=== PATIENT | female | born 1970 | race Caucasian/White ===

== ENCOUNTER 2021-11-25 15:50 | Emergency (ER) | payer MEDICARE, MEDICAID, SELFPAY ==
--- NOTE | ~2021-11-25 | CT_ITS ---
EXAMINATION: CT ANGIOGRAM OF THE CHEST WITH AND WITHOUT CONTRAST (CT PULMONARY ANGIOGRAM FOR PE) CLINICAL INFORMATION: Reason for Exam hx PE, hypoxic COMPARISON: None TECHNIQUE: Prior to contrast administration, noncontrast localization images were obtained. Subsequently, multidetector volumetric imaging was performed from the thoracic inlet to below the diaphragms following the administration of 65 mL Omnipaque 350 intravenous contrast. No contrast reaction reported Sagittal, coronal, and MIP oblique sagittal reformatted images were obtained on the CT workstation, uploaded to PACS, and reviewed. This CT examination was performed using dose optimization techniques as appropriate, variously including the following: *Automated exposure control *Adjustment of mA and/or kV according to patient size (this includes techniques or standardized protocols for targeted exams where dose is matched to indication/reason for exam; i.e. extremities or head) *Use of iterative reconstruction technique Total exam dose-length product 312 mGy-cm FINDINGS: QUALITY OF STUDY/CONTRAST BOLUS: Suboptimal contrast bolus is slightly less than optimal but more limiting marked motion artifact which completely obscures any detail in the bilateral lower lobes. PULMONARY ARTERIES: No central or large upper lobe segmental pulmonary emboli. The lower lobes are extremely poorly evaluated. THORACIC AORTA: No aneurysm or dissection. LUNG: No focal consolidation, worrisome nodules or masses. There is bibasilar atelectasis seen, right greater than left. PLEURA: No pleural effusion or pneumothorax. MEDIASTINUM: Normal heart size. No pericardial effusion. No hilar or mediastinal lymphadenopathy. No evidence of septal bowing or right heart strain. CHEST WALL/AXILLA: No axillary or internal mammary lymphadenopathy. OSSEOUS STRUCTURES: No acute or suspicious osseous abnormality. UPPER ABDOMEN: Gastrostomy tube noted in good position within the stomach. No reflux of contrast into the hepatic veins to suggest elevated right heart pressures. CT/CT angio chest PE protocol IMPRESSION: Limited study with no evidence of central or upper lobe pulmonary emboli. Lower lobes are poorly evaluated secondary to marked motion artifact along with poor quality of the bolus. VTE: Negative, but limited
--- NOTE | ~2021-11-25 | XR_ITS ---
EXAMINATION: XR CHEST CLINICAL INFORMATION: Hypoxic COMPARISON: Chest x-ray 01/12/2020 TECHNIQUE: Frontal portable view of the chest was obtained. 1630 hours FINDINGS: No significant abnormality is noted involving the heart, lungs, mediastinum, bony thorax or soft tissues. XR/XR chest 1V IMPRESSION: Unremarkable examination.
[2021-11-25 15:56] VITALS: BP 128/54; PULSE 82; O2SAT 94
[2021-11-25 15:59] VITALS: BP 121/97; PULSE 83; RESP 34; TEMP 36.1; O2SAT 97; BMI 21.6
--- NOTE | 2021-11-25 16:13 | ECG_ITS ---
Test Reason : SOB Blood Pressure : / mmHG Vent. Rate : 077 BPM Atrial Rate : 077 BPM P-R Int : 132 ms QRS Dur : 058 ms QT Int : 354 ms P-R-T Axes : 054 -23 050 degrees QTc Int : 400 ms Normal sinus rhythm Septal infarct , age undetermined - could be related to lead placement Abnormal ECG When compared with ECG of 06-JUN-2019 07:05, Septal infarct is now Present Nonspecific T wave abnormality no longer evident in Inferior leads Referred By: Angelina Luna Electronically Signed By:TAO HYATT
[2021-11-25 16:17] LABS: Glucose, Whole Blood 82 mg/dL (60-115)
[2021-11-25] MEDS: 0.9 % Sodium Chloride 1,000 ML 999 ML IVCONT (16:18)
[2021-11-25 16:27] LABS: MANUAL DIFF FLAG NO
[2021-11-25 16:29] LABS: VBG Base Excess 9.6 mmol/L; VBG HCO3 39 mmol/L (22-26); VBG pCO2 79 mmHg; VBG pO2 37 mmHg
[2021-11-25 16:29] LABS: Basophils Percent Auto 0.2 % (0-2); Eosinophils Percent Auto 0.1 % (0-4); Hematocrit 44.6 % (37.0-47.0); Hemoglobin 14.4 g/dl (12.0-16.0); Imm Gran Abs Auto 0.03 X10*3/uL (0.00-0.03); Imm Gran Pct Auto 0.3 % (0.0-0.4); Lymphocytes Percent Auto 20.5 % (20-40); Mean Corpuscular HGB Conc 32.3 g/dl (31.0-35.0); Mean Corpuscular Hemoglobin 34.7 pg (27.0-33.0); Mean Corpuscular Volume 107.5 fL (80.0-98.0); Mean Platelet Volume 10.7 fL (9.4-12.3); Monocytes Absolute Auto 0.8 X10*3/uL (0.1-1.2); Monocytes Percent Auto 7.9 % (2-11); Neutrophils Absolute Auto 6.8 x10*3/uL (2.0-8.3); Platelet Count 219 X10*3/uL (160-400); Red Blood Count 4.15 X10*6/uL (4.20-5.50); Red Cell Distribution Width 12.7 % (11.0-16.0); Venous Blood Gas Refer to POC result; White Blood Count 9.6 X10*3/uL (4.8-10.8)
[2021-11-25 16:33] LABS: INTERNATIONAL NORM RATIO 0.9 (0.9-1.1); Prothrombin Time 10.5 SEC (9.9-13.0)
--- NOTE | 2021-11-25 16:34 | ED.SOB ---
HPI - SOB/Dyspnea General Chief Complaint: Dyspnea Stated Complaint: SOB 78% RA,RECENT H/O PNA, Time Seen by Provider: 11/25/21 16:12 Source: EMS Mode of arrival: EMS Limitations: other (At baseline nonverbal) History of Present Illness HPI Narrative: Patient comes [facility] the emergency room from a [facility]. Patient at baseline is nonverbal. According to the staff, patient had explosive diarrhea this morning, when they went to change her linens, we noted that the patient's oxygen saturation was in the high 60s. EMS was called, oxygen saturation was in the high 70s. Patient was put on non-rebreather at 15 L, oxygen saturation improved to 96%. According to the correction staff, patient is prone to aspiration pneumonia. Related Data Allergies Allergy/AdvReac Type Severity Reaction Status Date / Time ceftriaxone [From ROCEPHIN] Allergy Unknown UNKNOWN Unverified 05/28/20 16:37 mirtazapine [MIRTAZAPINE] Allergy Unknown HIVES Unverified 05/28/20 16:37 Review of Systems Review of Systems: Yes Unobtainable due to mental condition [facility] Past Medical History Medical History Bipolar 2 disorder Pulmonary emboli Tardive dyskinesia Social History Social History Advance Directives: No Advance Directives Information Provided: No Physical Exam Vital Signs: Vital Signs: Last Vital Signs Temp 97 F 11/25/21 15:59 Pulse 85 11/25/21 20:34 Resp 19 11/25/21 20:34 BP 123/43 L 11/25/21 20:34 Pulse Ox 100 11/25/21 20:34 Oxygen Flow Rate 15 11/25/21 15:59 BMI result Body Mass Index 21.6 Const: Other: Appearance: Alert. Uncomfortable, moaning Eyes: Pupils equal, round and reactive to light. ENT: Pharynx normal. Neck: Normal inspection. Neck supple. No lymph nodes noted. No crepitus CVS: Normal heart rate and rhythm. Pulses normal. Normal S1 and S2 Respiratory: Symptom comfortable, crackly in all lung [place], decreased breath sounds in the right lung Abdomen: Soft and nontender. No rigidity. No distention. Skin: Skin cool to touch, mildly diaphoretic only in the face Extremities: No lower extremity edema. Neuro: Moves all extremities spontaneously, but has significant contractures in both upper extremities, both feet very cold touch, no discoloration Psych: At baseline, patient is nonverbal Course Course Course Narrative: On arrival, sepsis is not suspected. Given her history patient is being covered with Levaquin, x-rays and labs pending CT scan was done, negative for PE, does not look like patient has ammonia. Also, patient has been off of oxygen for 2 hours now, oxygen saturation has been 98% on room air. It is likely that patient had a mucus plug, other vitals stable On discharge, blood pressure 123/43, heart rate 85, oxygen saturation 99% on room air MDM - SOB/Dyspnea Lab Data Result diagrams: 11/25/21 16:15 11/25/21 16:15 Labs: Lab Results 11/25/21 11/25/21 11/25/21 Range/Units 16:03 16:15 16:15 WBC 9.6 (4.8-10.8) X10*3/uL RBC 4.15 L (4.20-5.50) X10*6/uL Hgb 14.4 (12.0-16.0) g/dl Hct 44.6 (37.0-47.0) % MCV 107.5 H (80.0-98.0) fL MCH 34.7 H (27.0-33.0) pg MCHC 32.3 (31.0-35.0) g/dl RDW 12.7 (11.0-16.0) % Plt Count 219 (160-400) X10*3/uL MPV 10.7 (9.4-12.3) fL Immature Gran % (Auto) 0.3 (0.0-0.4) % Neut % (Auto) 71.0 (45-73) % Lymph % (Auto) 20.5 (20-40) % [place] % (Auto) 7.9 (2-11) % Eos % (Auto) 0.1 (0-4) % Baso % (Auto) 0.2 (0-2) % Lymph # (Auto) 2.0 (1.2-4.9) X10*3/uL [place] # (Auto) 0.8 (0.1-1.2) X10*3/uL Eos # (Auto) 0.0 (0.0-0.4) X10*3/uL Baso # (Auto) 0.0 (0.0-0.2) X10*3/uL Abs Immat Gran (auto) 0.03 (0.00-0.03) X10*3/uL Absolute Neuts (auto) 6.8 (2.0-8.3) x10*3/uL Absolute Nucleated RBC 0.000 (0.0-0.012) X10*3/uL Nucleated RBC % (auto) 0.0 (0.0-0.2) /100WBC PT (9.9-13.0) SEC INR (0.9-1.1) D-Dimer High Sensitivty NG/ML VBG pH (7.32-7.43) VBG pCO2 mmHg VBG pO2 mmHg VBG HCO3 (22-26) mmol/L VBG O2 Saturation % VBG Base Excess mmol/L Sodium 141 (135-145) mmol/L Potassium 4.2 (3.3-5.1) mmol/L Chloride 99 (96-108) mmol/L Carbon Dioxide 31 H (22-29) mmol/L Anion Gap 15 (12-20) BUN 18 H (9-16) mg/dL Creatinine 0.57 (0.5-1.4) mg/dL Estim Creat Clear Calc 91.3 Estimated GFR > 60 POC Glucose 82 (60-115) mg/dL Random Glucose 94 (60-115) mg/dL Lactic Acid (0.5-2.0) mmol/L Calcium 9.1 (8.4-10.2) mg/dL Total Bilirubin 0.5 (0.0-1.0) mg/dL Direct Bilirubin 0.3 (0.0-0.5) mg/dL AST 20 (5-31) U/L ALT 15 (0-31) U/L Alkaline Phosphatase 113 (39-117) U/L Troponin I High Sens (<3.5-17.0) ng/L B-Natriuretic Peptide (<100) pg/mL Total Protein 5.9 L (6.5-8.0) g/dL Albumin 3.2 L (3.5-5.0) g/dL TSH (0.32-4.0) uIU/mL Urine Color Urine Appearance Urine pH (5.0-8.0) Ur Specific Half Way (1.005-1.025) Urine Protein (NEG-TRACE) MG/DL Urine Glucose (UA) (NEG) MG/DL Urine Ketones (NEG) MG/DL Urine Blood (NEG) Urine Nitrite (NEG) Ur Leukocyte Esterase (NEG) COVID-19 (PRATIMA) (Negative) COVID-19 Clin Com 11/25/21 11/25/21 11/25/21 Range/Units 16:15 16:15 16:15 WBC (4.8-10.8) X10*3/uL RBC (4.20-5.50) X10*6/uL Hgb (12.0-16.0) g/dl Hct (37.0-47.0) % MCV (80.0-98.0) fL MCH (27.0-33.0) pg MCHC (31.0-35.0) g/dl RDW (11.0-16.0) % Plt Count (160-400) X10*3/uL MPV (9.4-12.3) fL Immature Gran % (Auto) (0.0-0.4) % Neut % (Auto) (45-73) % Lymph % (Auto) (20-40) % [place] % (Auto) (2-11) % Eos % (Auto) (0-4) % Baso % (Auto) (0-2) % Lymph # (Auto) (1.2-4.9) X10*3/uL [place] # (Auto) (0.1-1.2) X10*3/uL Eos # (Auto) (0.0-0.4) X10*3/uL Baso # (Auto) (0.0-0.2) X10*3/uL Abs Immat Gran (auto) (0.00-0.03) X10*3/uL Absolute Neuts (auto) (2.0-8.3) x10*3/uL Absolute Nucleated RBC (0.0-0.012) X10*3/uL Nucleated RBC % (auto) (0.0-0.2) /100WBC PT 10.5 (9.9-13.0) SEC INR 0.9 (0.9-1.1) D-Dimer High Sensitivty < 150 NG/ML VBG pH (7.32-7.43) VBG pCO2 mmHg VBG pO2 mmHg VBG HCO3 (22-26) mmol/L VBG O2 Saturation % VBG Base Excess mmol/L Sodium (135-145) mmol/L Potassium (3.3-5.1) mmol/L Chloride (96-108) mmol/L Carbon Dioxide (22-29) mmol/L Anion Gap (12-20) BUN (9-16) mg/dL Creatinine (0.5-1.4) mg/dL Estim Creat Clear Calc Estimated GFR POC Glucose (60-115) mg/dL Random Glucose (60-115) mg/dL Lactic Acid 1.2 (0.5-2.0) mmol/L Calcium (8.4-10.2) mg/dL Total Bilirubin (0.0-1.0) mg/dL Direct Bilirubin (0.0-0.5) mg/dL AST (5-31) U/L ALT (0-31) U/L Alkaline Phosphatase (39-117) U/L Troponin I High Sens < 3.5 (<3.5-17.0) ng/L B-Natriuretic Peptide 42 (<100) pg/mL Total Protein (6.5-8.0) g/dL Albumin (3.5-5.0) g/dL TSH (0.32-4.0) uIU/mL Urine Color Urine Appearance Urine pH (5.0-8.0) Ur Specific Half Way (1.005-1.025) Urine Protein (NEG-TRACE) MG/DL Urine Glucose (UA) (NEG) MG/DL Urine Ketones (NEG) MG/DL Urine Blood (NEG) Urine Nitrite (NEG) Ur Leukocyte Esterase (NEG) COVID-19 (PRATIMA) (Negative) COVID-19 Clin Com 11/25/21 11/25/21 11/25/21 Range/Units 16:15 16:15 16:24 WBC (4.8-10.8) X10*3/uL RBC (4.20-5.50) X10*6/uL Hgb (12.0-16.0) g/dl Hct (37.0-47.0) % MCV (80.0-98.0) fL MCH (27.0-33.0) pg MCHC (31.0-35.0) g/dl RDW (11.0-16.0) % Plt Count (160-400) X10*3/uL MPV (9.4-12.3) fL Immature Gran % (Auto) (0.0-0.4) % Neut % (Auto) (45-73) % Lymph % (Auto) (20-40) % [place] % (Auto) (2-11) % Eos % (Auto) (0-4) % Baso % (Auto) (0-2) % Lymph # (Auto) (1.2-4.9) X10*3/uL [place] # (Auto) (0.1-1.2) X10*3/uL Eos # (Auto) (0.0-0.4) X10*3/uL Baso # (Auto) (0.0-0.2) X10*3/uL Abs Immat Gran (auto) (0.00-0.03) X10*3/uL Absolute Neuts (auto) (2.0-8.3) x10*3/uL Absolute Nucleated RBC (0.0-0.012) X10*3/uL Nucleated RBC % (auto) (0.0-0.2) /100WBC PT (9.9-13.0) SEC INR (0.9-1.1) D-Dimer High Sensitivty NG/ML VBG pH 7.30 L (7.32-7.43) VBG pCO2 79 mmHg VBG pO2 37 mmHg VBG HCO3 39 H (22-26) mmol/L VBG O2 Saturation 53.0 % VBG Base Excess 9.6 mmol/L Sodium (135-145) mmol/L Potassium (3.3-5.1) mmol/L Chloride (96-108) mmol/L Carbon Dioxide (22-29) mmol/L Anion Gap (12-20) BUN (9-16) mg/dL Creatinine (0.5-1.4) mg/dL Estim Creat Clear Calc Estimated GFR POC Glucose (60-115) mg/dL Random Glucose (60-115) mg/dL Lactic Acid (0.5-2.0) mmol/L Calcium (8.4-10.2) mg/dL Total Bilirubin (0.0-1.0) mg/dL Direct Bilirubin (0.0-0.5) mg/dL AST (5-31) U/L ALT (0-31) U/L Alkaline Phosphatase (39-117) U/L Troponin I High Sens (<3.5-17.0) ng/L B-Natriuretic Peptide (<100) pg/mL Total Protein (6.5-8.0) g/dL Albumin (3.5-5.0) g/dL TSH 1.34 (0.32-4.0) uIU/mL Urine Color Urine Appearance Urine pH (5.0-8.0) Ur Specific Half Way (1.005-1.025) Urine Protein (NEG-TRACE) MG/DL Urine Glucose (UA) (NEG) MG/DL Urine Ketones (NEG) MG/DL Urine Blood (NEG) Urine Nitrite (NEG) Ur Leukocyte Esterase (NEG) COVID-19 (PRATIMA) Negative (Negative) COVID-19 Clin Com See Note 11/25/21 Range/Units 16:50 WBC (4.8-10.8) X10*3/uL RBC (4.20-5.50) X10*6/uL Hgb (12.0-16.0) g/dl Hct (37.0-47.0) % MCV (80.0-98.0) fL MCH (27.0-33.0) pg MCHC (31.0-35.0) g/dl RDW (11.0-16.0) % Plt Count (160-400) X10*3/uL MPV (9.4-12.3) fL Immature Gran % (Auto) (0.0-0.4) % Neut % (Auto) (45-73) % Lymph % (Auto) (20-40) % [place] % (Auto) (2-11) % Eos % (Auto) (0-4) % Baso % (Auto) (0-2) % Lymph # (Auto) (1.2-4.9) X10*3/uL [place] # (Auto) (0.1-1.2) X10*3/uL Eos # (Auto) (0.0-0.4) X10*3/uL Baso # (Auto) (0.0-0.2) X10*3/uL Abs Immat Gran (auto) (0.00-0.03) X10*3/uL Absolute Neuts (auto) (2.0-8.3) x10*3/uL Absolute Nucleated RBC (0.0-0.012) X10*3/uL Nucleated RBC % (auto) (0.0-0.2) /100WBC PT (9.9-13.0) SEC INR (0.9-1.1) D-Dimer High Sensitivty NG/ML VBG pH (7.32-7.43) VBG pCO2 mmHg VBG pO2 mmHg VBG HCO3 (22-26) mmol/L VBG O2 Saturation % VBG Base Excess mmol/L Sodium (135-145) mmol/L Potassium (3.3-5.1) mmol/L Chloride (96-108) mmol/L Carbon Dioxide (22-29) mmol/L Anion Gap (12-20) BUN (9-16) mg/dL Creatinine (0.5-1.4) mg/dL Estim Creat Clear Calc Estimated GFR POC Glucose (60-115) mg/dL Random Glucose (60-115) mg/dL Lactic Acid (0.5-2.0) mmol/L Calcium (8.4-10.2) mg/dL Total Bilirubin (0.0-1.0) mg/dL Direct Bilirubin (0.0-0.5) mg/dL AST (5-31) U/L ALT (0-31) U/L Alkaline Phosphatase (39-117) U/L Troponin I High Sens (<3.5-17.0) ng/L B-Natriuretic Peptide (<100) pg/mL Total Protein (6.5-8.0) g/dL Albumin (3.5-5.0) g/dL TSH (0.32-4.0) uIU/mL Urine Color YELLOW Urine Appearance CLEAR Urine pH 6.5 (5.0-8.0) Ur Specific Half Way <= 1.005 (1.005-1.025) Urine Protein NEG (NEG-TRACE) MG/DL Urine Glucose (UA) NEG (NEG) MG/DL Urine Ketones NEG (NEG) MG/DL Urine Blood NEG (NEG) Urine Nitrite NEG (NEG) Ur Leukocyte Esterase NEG (NEG) COVID-19 (PRATIMA) (Negative) COVID-19 Clin Com Imaging Data CT scan - chest: Radiologist's impression: FINDINGS: QUALITY OF STUDY/CONTRAST BOLUS: Suboptimal contrast bolus is slightly less than optimal but more limiting marked motion artifact which completely obscures any detail in the bilateral lower lobes. PULMONARY ARTERIES: No central or large upper lobe segmental pulmonary emboli. The lower lobes are extremely poorly evaluated. THORACIC AORTA: No aneurysm or dissection. LUNG: No focal consolidation, worrisome nodules or masses. There is bibasilar atelectasis seen, right greater than left. PLEURA: No pleural effusion or pneumothorax. MEDIASTINUM: Normal heart size.? No pericardial effusion.? No hilar or mediastinal lymphadenopathy.? No evidence of septal bowing or right heart strain. CHEST WALL/AXILLA: No axillary or internal mammary lymphadenopathy. OSSEOUS STRUCTURES: No acute or suspicious osseous abnormality.? UPPER ABDOMEN: Gastrostomy tube noted in good position within the stomach.? No reflux of contrast into the hepatic veins to suggest elevated right heart pressures. CT/CT angio chest PE protocol IMPRESSION: Limited study with no evidence of central or upper lobe pulmonary emboli. Lower lobes are poorly evaluated secondary to marked motion artifact along with poor quality of the bolus. ? VTE: Negative, but limited Discharge Plan Discharge Clinical Impression: Mucus plugging of bronchi Patient Disposition: Home, Self-Care Instructions: Dyspnea (ED) Additional Instructions: Please follow-up with your primary care physician tomorrow. If you have any worsening or new symptoms, please return to the emergency room or call 911
[2021-11-25 16:38] LABS: Lactic Acid 1.2 mmol/L (0.5-2.0)
[2021-11-25 16:42] LABS: COVID-19 Test Negative (Negative)
[2021-11-25 16:44] LABS: Alanine Aminotransferase 15 U/L (0-31); Albumin Level 3.2 g/dL (3.5-5.0); Alkaline Phosphatase 113 U/L (39-117); Anion Gap 15 (12-20); Aspartate Amino Transferase 20 U/L (5-31); Bilirubin Direct 0.3 mg/dL (0.0-0.5); Bilirubin Total 0.5 mg/dL (0.0-1.0); Blood Urea Nitrogen 18 mg/dL (9-16); Calcium 9.1 mg/dL (8.4-10.2); Carbon Dioxide 31 mmol/L (22-29); Chloride 99 mmol/L (96-108); Creatinine Clr Calc Pharmacy 91.3; Estimated Glomerular Filt Rate > 60; Glucose Random 94 mg/dL (60-115); Potassium 4.2 mmol/L (3.3-5.1); Sodium 141 mmol/L (135-145); Total Protein 5.9 g/dL (6.5-8.0)
[2021-11-25 16:46] LABS: B Type Natriuretic Peptide 42 pg/mL (<100); Troponin-I High Sensitivity < 3.5 ng/L (<3.5-17.0)
[2021-11-25 16:56] LABS: Appearance Urine CLEAR; Color Urine YELLOW; Glucose Urine UA NEG (NEG); Leukocyte Esterase Urine NEG (NEG); Nitrite Urine NEG (NEG); PH 6.5 (5.0-8.0); Specific Gravity - Urine <= 1.005 (1.005-1.025); Urine Blood NEG (NEG); Urine Ketones NEG (NEG); Urine Protein NEG (NEG-TRACE)
[2021-11-25 17:01] LABS: TSH reflex Free T4 1.34 uIU/mL (0.32-4.0)
[2021-11-25] MEDS: levoFLOXacin/D5W 500 MG/100 ML PIGGYBACK 100 MG IV (17:29)
[2021-11-25 17:35] VITALS: BP 110/63; PULSE 73; RESP 20; O2SAT 98
--- NOTE | 2021-11-25 17:36 | PC.NURSE ---
pt alert but non-verbal at baseline, pt taken of the non-rebreather and changed over to the nasal cannuel and sating at 98%, pt is contracted at the arms at baseline, ns on the monitor pt is from a longterm
[2021-11-25 17:50] LABS: D Dimer High Sensitivity < 150 NG/ML
[2021-11-25 18:50] VITALS: PULSE 71; O2SAT 100
[2021-11-25] MEDS: iohexoL 350 MG/ML 100 ML INFUS..BTL IV (20:08)
[2021-11-25 20:34] VITALS: BP 123/43; PULSE 85; RESP 19; O2SAT 100
[2021-11-25 22:41] VITALS: BP 103/62; RESP 16; O2SAT 97
--- NOTE | 2021-11-26 05:19 | PC.NURSE ---
The pt has been discharged since before midnight, however remains in the E.D. awaiting available transport back to senior living. Sicne that time the pt has been resting ixn bed and at times is quiet and at other times seems to be indicating discomfort. Prior to senior living's staff dearture from ER I inquired about facial expressions the pt was making, wondering if they indicated that she was in pain. The senior living staff memebr stated that this was her baseline and did not indicate that she was in painb. Since she has been discharged she has been incontinent of a large amount of urine. linens were changed, skin cleansed, warm blankets provided. We continue to await transport.
== END 2021-11-26 06:16 | disposition home or self-care (01) ==
PROVIDERS: Emergency Provider Emergency Medicine
DX: T17.590A Other foreign object in bronchus causing asphyxiation, initial encounter (principal); X58.XXXA Exposure to other specified factors, initial encounter; R06.02 Shortness of breath; Z87.01 Personal history of pneumonia (recurrent); Z86.711 Personal history of pulmonary embolism; G24.01 Drug induced subacute dyskinesia; Z20.822 Contact with and (suspected) exposure to COVID-19; Y93.9 Activity, unspecified; Y92.049 Unspecified place in boarding-house as the place of occurrence of the external cause; Y99.9 Unspecified external cause status
CPT/HCPCS: 36415; 71045; 71275; 80048; 80076; 81003; 82803; 82947; 83605; 83880; 84443; 84484; 85025; 85379; 85610; 87040; 87147; 87205; 87635; 93005; 96361; 96374; 99284; 99285; J1956; Q9967

== ENCOUNTER 2021-11-26 22:18 | Inpatient (IN) | payer MEDICARE, MEDICAID, SELFPAY ==
--- NOTE | ~2021-11-26 | XR_ITS ---
EXAMINATION: XR CHEST CLINICAL INFORMATION: Hypoxia. COMPARISON: CTA of the chest dated from 11/25/2021. Chest radiograph dated from 11/25/2021. TECHNIQUE: AP view of the chest was obtained. FINDINGS: Stable appearance of the cardiomediastinal silhouette. EKG wires overlie the chest. No focal airspace opacities, pleural effusions or pneumothorax. No acute osseous abnormalities. Significant dilatation of what seems to be the stomach. XR/XR chest 1V IMPRESSION: No acute cardiopulmonary findings. Marked gastric distention which is nonspecific. Correlate clinically and if indicated with an abdominal radiograph or CT.
--- NOTE | ~2021-11-26 | CT_ITS ---
EXAMINATION: CT ABDOMEN AND PELVIS WITHOUT CONTRAST CLINICAL INFORMATION: Gastric distention. Sepsis. COMPARISON: 01/12/2020 TECHNIQUE: Multidetector volumetric imaging was performed from the superior aspect of the liver through the pubic symphysis. Sagittal and coronal reformatted images were obtained on the technologist's workstation. This CT examination was performed using dose optimization techniques as appropriate, variously including the following: *Automated exposure control *Adjustment of mA and/or kV according to patient size (this includes techniques or standardized protocols for targeted exams where dose is matched to indication/reason for exam; i.e. extremities or head) *Use of iterative reconstruction technique DLP: 558 mGy-cm FINDINGS: Motion limited study. LUNG BASES: Consolidation at the right lung base noted. Normal heart size. LIVER, GALLBLADDER, AND BILIARY TREE: The liver is normal in size, shape, and attenuation. No focal hepatic lesion or biliary ductal dilatation is present. The gallbladder is unremarkable with no evidence of radiopaque gallstones, gallbladder wall thickening, or obvious pericholecystic inflammatory changes. PANCREAS: Unremarkable. SPLEEN: Unremarkable. ADRENAL GLANDS: Unremarkable. KIDNEYS AND URETERS: The kidneys are normal in size, shape, and attenuation. No hydronephrosis, hydroureter, or calculi seen. No perinephric stranding. BLADDER: Distended without wall thickening. GASTROINTESTINAL TRACT: Gastrostomy tube in place. The stomach is otherwise decompressed. Normal caliber small bowel. No obstruction. No colonic wall thickening or inflammation. No free air or free fluid. ABDOMINAL WALL: No significant hernia is appreciated. LYMPH NODES: Normal. VASCULAR: Unremarkable. PELVIC VISCERA: The uterus and adnexa are unremarkable. OSSEOUS STRUCTURES: No acute or suspicious osseous abnormality. Vacuum disc phenomenon at L5-S1 with mild degenerative changes of the spine. Mild degenerative changes of the hips. CT/CT abdomen pelvis wo con IMPRESSION: Consolidation at the right lung base concerning for pneumonia. No bowel obstruction. Fleischner guidelines were followed.
--- NOTE | 2021-11-26 22:24 | ECG_ITS ---
Test Reason : DYSPNEA Blood Pressure : / mmHG Vent. Rate : 101 BPM Atrial Rate : 101 BPM P-R Int : 140 ms QRS Dur : 066 ms QT Int : 382 ms P-R-T Axes : 052 -19 043 degrees QTc Int : 495 ms Sinus tachycardia Nonspecific T wave abnormality Abnormal ECG When compared with ECG of 25-NOV-2021 16:26, Criteria for Septal infarct are no longer Present Nonspecific T wave abnormality now evident in Inferior leads Nonspecific T wave abnormality now evident in Lateral leads QT has lengthened Referred By: Nehemiah Altman Electronically Signed By:TAO HYATT
[2021-11-26 22:33] VITALS: BP 118/59; BP 120/60; PULSE 102; RESP 34; TEMP 36.8; O2SAT 97
--- NOTE | 2021-11-26 22:39 | ED_ITS ---
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 HR went down to 20 while EMS trying to do suction patient usually opens her eye and response at this time patient lethargic not responding to painful stimuli patient is DNR Related Data Allergies Allergy/AdvReac Type Severity Reaction Status Date / Time ceftriaxone [From ROCEPHIN] Allergy Unknown UNKNOWN Unverified 05/28/20 16:37 mirtazapine [MIRTAZAPINE] Allergy Unknown HIVES Unverified 05/28/20 16:37 Review of Systems Review of Systems: Yes Unobtainable due to mental status PMFSH Past Medical History Medical History Bipolar 2 disorder Pulmonary emboli Tardive dyskinesia Social History Social History Alcohol intake: unknown Patient Tobacco Use Status: Tobacco use Unknown Use of substances other than those prescribed or required for medical reasons: Unable to respond Advance Directives: No Advance Directives Information Provided: No Physical Exam Vital Signs: Vital Signs: Last Vital Signs Temp 98.7 F 11/27/21 04:00 Pulse 72 11/27/21 04:00 Resp 16 11/27/21 04:00 BP 112/58 L 11/27/21 04:00 Pulse Ox 96 11/27/21 04:00 Oxygen Flow Rate 6 11/26/21 22:33 BMI result Body Mass Index 20.0 Appearance: obtunded with respiratory distress Eyes: 2 mm pupil sluggish to react to light ENT: Pharynx normal. dry mucosa open mouth Neck: Normal inspection. Neck supple. CVS: Normal heart rate and rhythm. Pulses normal. Respiratory: moderate respiratory distress Equal air entry bilateral, crackles bilateral Abdomen: Soft and nontender. Bowel sounds are present, no mass palpable, no CVA tenderness Skin: Skin warm and dry. Normal skin color. Normal skin turgor. Extremities: No lower extremity edema. No calf tenderness Neuro: limited body movements with cerebral palsy MDM - SOB/Dyspnea MDM Narrative Medical decision making narrative: patient with hypoxia with leukocytosis with new aspiration pneumonia on the right side with lactic acidosis meeting the criteria for sepsis. Patient received IV fluid more than 30 cc/kilogram and IV antibiotics patient hypertension improved after IV hydration had fluctuant blood pressure during stay in the ER because of contracture position patient alertness improved seems to be baseline at the time of admission CT scan of the abdomen done which was negative for any acute Lab Data Attestation: I reviewed the patient's lab results. Result diagrams: 11/26/21 22:46 11/26/21 22:46 Labs: Lab Results 11/26/21 11/26/21 11/26/21 Range/Units 22:46 22:46 22:46 WBC 17.8 H (4.8-10.8) X10*3/uL RBC 3.49 L (4.20-5.50) X10*6/uL Hgb 12.2 (12.0-16.0) g/dl Hct 38.2 (37.0-47.0) % MCV 109.5 H (80.0-98.0) fL MCH 35.0 H (27.0-33.0) pg MCHC 31.9 (31.0-35.0) g/dl RDW 12.9 (11.0-16.0) % Plt Count 217 (160-400) X10*3/uL MPV 10.6 (9.4-12.3) fL Immature Gran % (Auto) 0.9 H (0.0-0.4) % Neut % (Auto) 74.0 H (45-73) % Lymph % (Auto) 16.8 L (20-40) % [place] % (Auto) 8.1 (2-11) % Eos % (Auto) 0.1 (0-4) % Baso % (Auto) 0.1 (0-2) % Lymph # (Auto) 3.0 (1.2-4.9) X10*3/uL [place] # (Auto) 1.4 H (0.1-1.2) X10*3/uL Eos # (Auto) 0.0 (0.0-0.4) X10*3/uL Baso # (Auto) 0.0 (0.0-0.2) X10*3/uL Abs Immat Gran (auto) 0.16 H (0.00-0.03) X10*3/uL Absolute Neuts (auto) 13.2 H (2.0-8.3) x10*3/uL Absolute Nucleated RBC 0.000 (0.0-0.012) X10*3/uL Nucleated RBC % (auto) 0.0 (0.0-0.2) /100WBC PT 12.0 (9.9-13.0) SEC INR 1.1 (0.9-1.1) VBG pH (7.32-7.43) VBG pCO2 mmHg VBG pO2 mmHg VBG HCO3 (22-26) mmol/L VBG O2 Saturation % VBG Base Excess mmol/L Sodium 138 (135-145) mmol/L Potassium 3.8 (3.3-5.1) mmol/L Chloride 103 (96-108) mmol/L Carbon Dioxide 23 (22-29) mmol/L Anion Gap 16 (12-20) BUN 12 (9-16) mg/dL Creatinine 0.64 (0.5-1.4) mg/dL Estim Creat Clear Calc 88.9 Estimated GFR > 60 Random Glucose 238 H (60-115) mg/dL Lactic Acid (0.5-2.0) mmol/L Lactic Acid F/U @ 2Hr (0.5-2.0) mmol/L Lactic Acid F/U @ 4Hr (0.5-2.0) mmol/L Calcium 8.7 (8.4-10.2) mg/dL Troponin I High Sens (<3.5-17.0) ng/L 11/26/21 11/26/21 11/26/21 Range/Units 22:46 22:46 22:48 WBC (4.8-10.8) X10*3/uL RBC (4.20-5.50) X10*6/uL Hgb (12.0-16.0) g/dl Hct (37.0-47.0) % MCV (80.0-98.0) fL MCH (27.0-33.0) pg MCHC (31.0-35.0) g/dl RDW (11.0-16.0) % Plt Count (160-400) X10*3/uL MPV (9.4-12.3) fL Immature Gran % (Auto) (0.0-0.4) % Neut % (Auto) (45-73) % Lymph % (Auto) (20-40) % [place] % (Auto) (2-11) % Eos % (Auto) (0-4) % Baso % (Auto) (0-2) % Lymph # (Auto) (1.2-4.9) X10*3/uL [place] # (Auto) (0.1-1.2) X10*3/uL Eos # (Auto) (0.0-0.4) X10*3/uL Baso # (Auto) (0.0-0.2) X10*3/uL Abs Immat Gran (auto) (0.00-0.03) X10*3/uL Absolute Neuts (auto) (2.0-8.3) x10*3/uL Absolute Nucleated RBC (0.0-0.012) X10*3/uL Nucleated RBC % (auto) (0.0-0.2) /100WBC PT (9.9-13.0) SEC INR (0.9-1.1) VBG pH 7.20 L* (7.32-7.43) VBG pCO2 65 mmHg VBG pO2 163 mmHg VBG HCO3 25 (22-26) mmol/L VBG O2 Saturation 100.0 % VBG Base Excess -3.6 mmol/L Sodium (135-145) mmol/L Potassium (3.3-5.1) mmol/L Chloride (96-108) mmol/L Carbon Dioxide (22-29) mmol/L Anion Gap (12-20) BUN (9-16) mg/dL Creatinine (0.5-1.4) mg/dL Estim Creat Clear Calc Estimated GFR Random Glucose (60-115) mg/dL Lactic Acid 5.5 H* (0.5-2.0) mmol/L Lactic Acid F/U @ 2Hr (0.5-2.0) mmol/L Lactic Acid F/U @ 4Hr (0.5-2.0) mmol/L Calcium (8.4-10.2) mg/dL Troponin I High Sens 6.3 D (<3.5-17.0) ng/L 11/27/21 11/27/21 Range/Units 01:23 03:52 WBC (4.8-10.8) X10*3/uL RBC (4.20-5.50) X10*6/uL Hgb (12.0-16.0) g/dl Hct (37.0-47.0) % MCV (80.0-98.0) fL MCH (27.0-33.0) pg MCHC (31.0-35.0) g/dl RDW (11.0-16.0) % Plt Count (160-400) X10*3/uL MPV (9.4-12.3) fL Immature Gran % (Auto) (0.0-0.4) % Neut % (Auto) (45-73) % Lymph % (Auto) (20-40) % [place] % (Auto) (2-11) % Eos % (Auto) (0-4) % Baso % (Auto) (0-2) % Lymph # (Auto) (1.2-4.9) X10*3/uL [facility] # (Auto) (0.1-1.2) X10*3/uL Eos # (Auto) (0.0-0.4) X10*3/uL Baso # (Auto) (0.0-0.2) X10*3/uL Abs Immat Gran (auto) (0.00-0.03) X10*3/uL Absolute Neuts (auto) (2.0-8.3) x10*3/uL Absolute Nucleated RBC (0.0-0.012) X10*3/uL Nucleated RBC % (auto) (0.0-0.2) /100WBC PT (9.9-13.0) SEC INR (0.9-1.1) VBG pH (7.32-7.43) VBG pCO2 mmHg VBG pO2 mmHg VBG HCO3 (22-26) mmol/L VBG O2 Saturation % VBG Base Excess mmol/L Sodium (135-145) mmol/L Potassium (3.3-5.1) mmol/L Chloride (96-108) mmol/L Carbon Dioxide (22-29) mmol/L Anion Gap (12-20) BUN (9-16) mg/dL Creatinine (0.5-1.4) mg/dL Estim Creat Clear Calc Estimated GFR Random Glucose (60-115) mg/dL Lactic Acid (0.5-2.0) mmol/L Lactic Acid F/U @ 2Hr 2.4 H* (0.5-2.0) mmol/L Lactic Acid F/U @ 4Hr 1.6 (0.5-2.0) mmol/L Calcium (8.4-10.2) mg/dL Troponin I High Sens (<3.5-17.0) ng/L ECG Data Attestation: I personally reviewed and interpreted this ECG as follows: Interpretation: sinus tachycardia with heart rate of [address] T wave changes no acute ischemia Critical Care Time Critical Care Time Critical Care Time: Yes Total Critical Care Time: 55 Attestation: I spent 55 minutes of critical care, with interventions, assessments, Discharge Plan Discharge Clinical Impression: Aspiration pneumonia, Acidosis, lactic, Hypoxic Patient Disposition: Admitted As Inpatient
[2021-11-26 22:52] LABS: MANUAL DIFF FLAG NO
[2021-11-26 22:52] LABS: Venous Blood Gas Refer to POC result
[2021-11-26 22:54] LABS: Basophils Percent Auto 0.1 % (0-2); Eosinophils Percent Auto 0.1 % (0-4); Hematocrit 38.2 % (37.0-47.0); Hemoglobin 12.2 g/dl (12.0-16.0); Imm Gran Abs Auto 0.16 X10*3/uL (0.00-0.03); Imm Gran Pct Auto 0.9 % (0.0-0.4); Lymphocytes Percent Auto 16.8 % (20-40); Mean Corpuscular HGB Conc 31.9 g/dl (31.0-35.0); Mean Corpuscular Volume 109.5 fL (80.0-98.0); Mean Platelet Volume 10.6 fL (9.4-12.3); Monocytes Absolute Auto 1.4 X10*3/uL (0.1-1.2); Monocytes Percent Auto 8.1 % (2-11); Neutrophils Absolute Auto 13.2 x10*3/uL (2.0-8.3); Platelet Count 217 X10*3/uL (160-400); Red Blood Count 3.49 X10*6/uL (4.20-5.50); Red Cell Distribution Width 12.9 % (11.0-16.0); White Blood Count 17.8 X10*3/uL (4.8-10.8)
[2021-11-26 22:56] LABS: VBG Base Excess -3.6 mmol/L; VBG HCO3 25 mmol/L (22-26); VBG pCO2 65 mmHg; VBG pO2 163 mmHg
[2021-11-26 23:00] LABS: INTERNATIONAL NORM RATIO 1.1 (0.9-1.1)
[2021-11-26 23:12] LABS: Anion Gap 16 (12-20); Blood Urea Nitrogen 12 mg/dL (9-16); Calcium 8.7 mg/dL (8.4-10.2); Carbon Dioxide 23 mmol/L (22-29); Chloride 103 mmol/L (96-108); Creatinine Clr Calc Pharmacy 88.9; Estimated Glomerular Filt Rate > 60; Glucose Random 238 mg/dL (60-115); Potassium 3.8 mmol/L (3.3-5.1); Sodium 138 mmol/L (135-145)
[2021-11-26 23:18] LABS: Lactic Acid 5.5 mmol/L (0.5-2.0); Troponin-I High Sensitivity 6.3 ng/L (<3.5-17.0)
[2021-11-26] MEDS: Piperacillin Sodium/Tazobactam 3.375 GM in 0.9 % Sodium Chloride 50 ML IV (23:39)
[2021-11-26] MEDS: 0.9 % Sodium Chloride 2,000 ML 2000 ML IV (23:39)
[2021-11-27] VITALS (13 sets, daily range): BP systolic 83–132; BP diastolic 37–85; PULSE 70–92; RESP 16–23; TEMP 36.2–37.2; O2SAT 94–100
[2021-11-27 00:50] LABS: Reflex Lactate? Lactic Acid Added
[2021-11-27 01:46] LABS: ~Lactic Acid-LAB USE ONLY 2.4 mmol/L (0.5-2.0)
[2021-11-27 03:27] LABS: Reflex Lactate? 2 Y
[2021-11-27] MEDS: 0.9 % Sodium Chloride 1,000 ML 999 ML IV (03:57)
--- NOTE | 2021-11-27 04:05 | PC.NURSE ---
PATIENT WAS INC ,CARE WAS GIVEN ,PATIENT BEDDING WAS CHANGE ,AND PATIENT REPOSITION .
[2021-11-27 04:07] LABS: ~Lactic Acid-LAB USE ONLY 1.6 mmol/L (0.5-2.0)
--- NOTE | 2021-11-27 04:37 | PC.NURSE ---
I assumed nursing care of Barbara upon her arrival to bed 5 via EMS from local [facility]. She was sent to ED by [facility] staff, per EMS, because she's had difficulty clearing her airway /respiratory distress. On arrival the pt was being assisted with BVM by EMS who state that, during transport, the pt became markedly bradycardic in the 20's and then shot right up to the 170's . EMS stated she did this twice while en route to ED. Since she arrived she has remained in a SR/Stach 90's-100's. Her BP's have mostly been WNL with the exception of two blood pressures in the low 80's systolically. There was question of the accuracy of these BP's, Leigha FOWLER repeated BP and obtained a systolic BP of 100. At that time he requested an additional fluid bolus for a total of 3L NS (she was administered 2L NS bolus on arrival). The pt arrived wearing one saturated brief and an additional brief placed over the saturated one. These were removed. her skin was cleansed and dry sheets were provided. There is an area of open skin/breakdown noted to her R buttocks. Pt has been positioned off of her buttocks with a pillow. Barbara has been non-verbal, very occasionally opening her eyes and moaning and making eye contact, but has mostly beenwith her eyes closed, appearing comfortable. Her arms are contracted in toward her core, and her legs are very stiff and are difficult to manipulate. Her skin is pale, warm and dry. Her sat's on 2L humidified nasal cannula remain 94% or better. it's difficult to obtain an accurate pulseOx pleth on her. THe pt is TBADM. Will continue to monitor Barbara and will prepare for admission.
[2021-11-27] MEDS: 0.9 % Sodium Chloride 1,000 ML 100 ML IVCONT ×2 (05:50→16:47)
[2021-11-27] MEDS: Morphine Sulfate 2 MG/ML CARTRIDGE IVPUSH ×3 (09:00→18:35)
--- NOTE | 2021-11-27 09:36 | PM.IMHP ---
History of Present Illness Date of Service: 11/27/21 Chief Complaint: fever Ms Hood is a 51 year-old woman with developmental delay, bipolar disorder, and tardive dyskinesia who resides at a [facility] and is wheelchair- and bed-bound and G-tube dependent. She has a history of recurrent aspiration pneumonia. Her G-tube was just changed yesterday. She was brought in to the [facility] ED 2 days ago for hypoxia, which resolved with suctioning and was attributed to a mucus plug; she had no evidence of pneumonia on CXR. Covid-19 PRATIMA was negative. She was brought back in yesterday due to worsening dyspnea and had bradycardia into the 20s with suctioning by EMS. She was noted to be lethargic as well. In the ED, she was noted to have severe sepsis by virtue of tachycardia, tachypnea, and leukocytosis with lactic acidosis and R lung base consolidation on CT scan. She was given IV piperacillin/tazobactam. Lactate normalized with IV fluid resuscitation. She was hypoxic, initially requiring 6L of supplemental O2 but now on 2L of O2. She is more alert now and seems uncomfortable. She is nonverbal at baseline and unable to give a ROS. History is per discussion with the ED as well as her sister Yuko Woodward, who is her legal guardian. Review of Systems Review of Systems: Yes Unobtainable due to mental status PMFSH Medical History (Updated 11/27/21 @ 09:52 by Meghan Farrar MD) Bipolar 2 disorder Chronic constipation Gastrostomy tube in place Hyperlipidemia Pulmonary emboli Tardive dyskinesia Functional capacity: bed bound Pertinent family history: no chronic lung disease Social History Alcohol intake: unknown Patient Tobacco Use Status: Tobacco use Unknown Use of substances other than those prescribed or required for medical reasons: Unable to respond Advance Directives: No Advance Directives Information Provided: No Meds Allergies Allergy/AdvReac Type Severity Reaction Status Date / Time ceftriaxone [From ROCEPHIN] Allergy Unknown UNKNOWN Unverified 05/28/20 16:37 mirtazapine [MIRTAZAPINE] Allergy Unknown HIVES Unverified 05/28/20 16:37 Active Medications: Current Medications Acetaminophen (Acetaminophen 325 Mg Tablet) 650 mg G-TUBE Q6H PRN PRN Reason: Pain, Mild (Pain Scale 1-3) Atorvastatin Calcium (Atorvastatin Calcium 10 Mg Tablet) 10 mg G-TUBE BEDTIME [facility] Clonazepam (Clonazepam 0.5 Mg Tablet) 0.5 mg G-TUBE BID@0800,1400 [facility] Clonazepam (Clonazepam 1 Mg Tablet) 2 mg G-TUBE BEDTIME [facility] Clotrimazole (Clotrimazole 1 % Cream 15 Gm Tube) 1 appl TOPICAL BID ELIEL; Protocol Cyanocobalamin (Cyanocobalamin (Vitamin B-12) 1,000 Mcg Tablet) 1,000 mcg G-TUBE DAILY [facility] Docusate Sodium (Docusate Sodium 100 Mg/10 Ml Liquid) 100 mg G-TUBE BID [facility] Enoxaparin Sodium (Enoxaparin Sodium 40 Mg/0.4 Ml Syringe) 40 mg SUBCUT Q24H [facility] Fluoxetine HCl (Fluoxetine Hcl 10 Mg Capsule) 10 mg G-TUBE DAILY [facility] Fluoxetine HCl (Fluoxetine Hcl 20 Mg Capsule) 20 mg G-TUBE DAILY [facility] Folic Acid (Folic Acid 1 Mg Tablet) 1 mg G-TUBE DAILY [facility] Sodium Chloride (Ns) 1,000 mls @ 100 mls/hr IVCONT .Q10H [facility] Last Admin: 11/27/21 05:50 Dose: 100 mls/hr Documented by: Piperacillin Sod/Tazobactam (Sod 4.5 gm/ Sodium Chloride) 50 mls @ 100 mls/hr IV Q6H [facility] Last Infusion: 11/27/21 09:15 Dose: Infused Documented by: Melatonin (Melatonin 3 Mg Tablet) 3 mg G-TUBE BEDTIME [facility] Morphine Sulfate (Morphine Sulfate 2 Mg/Ml Cartridge) 2 mg IVPUSH Q2H PRN; Protocol PRN Reason: severe pain Last Admin: 11/27/21 09:00 Dose: 2 mg Documented by: Ondansetron HCl (Ondansetron Hcl 4 Mg/2 Ml Vial) 4 mg IVPUSH Q8H PRN PRN Reason: Nausea and Vomiting Senna (Senna [place] Extract Oral Syrup 15 Ml Syrup) 15 ml G-TUBE DAILY [facility] Sodium Chloride (0.9 % Sodium Chloride Flush 3 Ml Syringe) 3 ml IVFLUSH QSHIFT [facility] Trazodone HCl (Trazodone Hcl 50 Mg Tablet) 50 mg G-TUBE BEDTIME [facility] Triamcinolone Acetonide (Triamcinolone Acet 0.1 % Cream 15 Gm Tube) 1 appl TOPICAL BID ELIEL; Protocol Last Admin: 11/27/21 09:01 Dose: Not Given Documented by: Valproic Acid (Valproic Acid (As Sodium Salt) 250 Mg/5 Ml Solution) 1,500 mg G-TUBE DAILY ELIEL Valproic Acid (Valproic Acid (As Sodium Salt) 250 Mg/5 Ml Solution) 1,750 mg G-TUBE BEDTIME ELIEL Home Medications Medication Instructions Recorded Confirmed Last Taken Type acetaminophen 325 mg tablet 975 mg PO TID 11/27/21 11/27/21 Unknown History clonazepam 0.5 mg tablet 1 tab PO BID@0800,1400 11/27/21 11/27/21 Unknown History clonazepam 2 mg tablet 1 tab PO BEDTIME 11/27/21 11/27/21 Unknown History clotrimazole 1 % topical cream 1 appl TOPICAL BID 11/27/21 11/27/21 Unknown History cranberry fruit 450 mg tablet 450 mg PO DAILY 11/27/21 11/27/21 Unknown History (cranberry) cyanocobalamin (vitamin B-12) 1 tab PO DAILY 11/27/21 11/27/21 Unknown History 1,000 mcg tablet docusate sodium 50 mg/5 mL oral 100 mg PO BID 11/27/21 11/27/21 Unknown History liquid (Docu) fluoxetine 10 mg capsule 1 cap PO DAILY 11/27/21 11/27/21 Unknown History fluoxetine 20 mg capsule 1 cap PO DAILY 11/27/21 11/27/21 Unknown History folic acid 1 mg tablet 1 tab PO DAILY 11/27/21 11/27/21 Unknown History ketoconazole 2 % shampoo 1 appl TOPICAL DAILY 11/27/21 11/27/21 Unknown History melatonin 1 mg tablet 1 tab PO BEDTIME 11/27/21 11/27/21 Unknown History sennosides 8.8 mg/5 mL oral syrup 17.6 mg PO DAILY 11/27/21 11/27/21 Unknown History (senna) simvastatin 20 mg tablet 1 tab PO BEDTIME 11/27/21 11/27/21 Unknown History trazodone 50 mg tablet 1 tab PO BEDTIME 11/27/21 11/27/21 Unknown History triamcinolone acetonide 0.1 % 1 applic TOPICAL BID 11/27/21 11/27/21 Unknown History topical cream valproic acid (as sodium salt) 250 1,500 mg PO DAILY 11/27/21 11/27/21 Unknown History mg/5 mL oral solution valproic acid (as sodium salt) 250 1,750 mg PO BEDTIME 11/27/21 11/27/21 Unknown History mg/5 mL oral solution Physical Exam Vital Signs and Narrative: Vital Signs: Last Vital Signs Temp 98.9 F 11/27/21 06:00 Pulse 73 11/27/21 08:00 Resp 23 H 11/27/21 08:00 BP 132/75 11/27/21 08:00 Pulse Ox 100 11/27/21 08:00 Oxygen Flow Rate 6 11/26/21 22:33 BMI result Body Mass Index 20.0 Gen: moaning, appears uncomfortable, SaO2 100% on 2L O2 via NC HEENT: sclera anicteric, moist mucus membranes Neck: supple Lungs: tachypneic, moderate respiratory distress, decreased air entry R base Heart: regular rate and rhythm, no murmurs Abd: soft, non-tender, non-distended, G tube in place Ext: no edema, contractures Skin: warm/well-perfused Neuro: alert, nonverbal, moving all extremities Psych: impaired insight Results Labs CBC and Chem 7: 11/26/21 22:46 11/26/21 22:46 Labs: Laboratory Results - last 24 hr 11/26/21 11/26/21 11/26/21 22:46 22:46 22:46 MCV 109.5 H MCH 35.0 H MCHC 31.9 RDW 12.9 Plt Count 217 MPV 10.6 Immature Gran % (Auto) 0.9 H Neut % (Auto) 74.0 H Lymph % (Auto) 16.8 L [place] % (Auto) 8.1 Eos % (Auto) 0.1 Baso % (Auto) 0.1 Lymph # (Auto) 3.0 [place] # (Auto) 1.4 H Eos # (Auto) 0.0 Baso # (Auto) 0.0 Abs Immat Gran (auto) 0.16 H Absolute Neuts (auto) 13.2 H Absolute Nucleated RBC 0.000 Nucleated RBC % (auto) 0.0 PT 12.0 INR 1.1 VBG pH VBG pCO2 VBG pO2 VBG HCO3 VBG O2 Saturation VBG Base Excess Anion Gap 16 Estim Creat Clear Calc 88.9 Estimated GFR > 60 Random Glucose 238 H Lactic Acid Lactic Acid F/U @ 2Hr Lactic Acid F/U @ 4Hr Calcium 8.7 11/26/21 11/26/21 11/27/21 22:46 22:48 01:23 MCV MCH MCHC RDW Plt Count MPV Immature Gran % (Auto) Neut % (Auto) Lymph % (Auto) [place] % (Auto) Eos % (Auto) Baso % (Auto) Lymph # (Auto) [place] # (Auto) Eos # (Auto) Baso # (Auto) Abs Immat Gran (auto) Absolute Neuts (auto) Absolute Nucleated RBC Nucleated RBC % (auto) PT INR VBG pH 7.20 L* VBG pCO2 65 VBG pO2 163 VBG HCO3 25 VBG O2 Saturation 100.0 VBG Base Excess -3.6 Anion Gap Estim Creat Clear Calc Estimated GFR Random Glucose Lactic Acid 5.5 H* Lactic Acid F/U @ 2Hr 2.4 H* Lactic Acid F/U @ 4Hr Calcium 11/27/21 03:52 MCV MCH MCHC RDW Plt Count MPV Immature Gran % (Auto) Neut % (Auto) Lymph % (Auto) [place] % (Auto) Eos % (Auto) Baso % (Auto) Lymph # (Auto) [place] # (Auto) Eos # (Auto) Baso # (Auto) Abs Immat Gran (auto) Absolute Neuts (auto) Absolute Nucleated RBC Nucleated RBC % (auto) PT INR VBG pH VBG pCO2 VBG pO2 VBG HCO3 VBG O2 Saturation VBG Base Excess Anion Gap Estim Creat Clear Calc Estimated GFR Random Glucose Lactic Acid Lactic Acid F/U @ 2Hr Lactic Acid F/U @ 4Hr 1.6 Calcium ITS Impressions Chest X-Ray 11/26/21 22:32 IMPRESSION: No acute cardiopulmonary findings. Marked gastric distention which is nonspecific. Correlate clinically and if indicated with an abdominal radiograph or CT. Abdomen/Pelvis CT 11/27/21 02:45 IMPRESSION: Consolidation at the right lung base concerning for pneumonia. No bowel obstruction. Fleischner guidelines were followed. Imaging Radiologist's Impressions: Impressions Chest X-Ray 11/26/21 22:32 IMPRESSION: No acute cardiopulmonary findings. Marked gastric distention which is nonspecific. Correlate clinically and if indicated with an abdominal radiograph or CT. Abdomen/Pelvis CT 11/27/21 02:45 IMPRESSION: Consolidation at the right lung base concerning for pneumonia. No bowel obstruction. Fleischner guidelines were followed. Assessment and Plan (1) Severe sepsis: Status: Acute (2) Aspiration pneumonia: Status: Acute (3) Acidosis, lactic: Status: Acute (4) Acute respiratory failure with hypoxia: Status: Acute Plan 51 year-old woman with developmental delay, bipolar disorder, and tardive dyskinesia who resides at a [facility] and is wheelchair- and bed-bound and G-tube dependent, with history of recurrent aspiration pneumonia, presenting with respiratory distress, hypoxia, and severe sepsis due to pneumonia. # severe sepsis due to pneumonia, likely aspiration - admit to Med/Surg. lactate normalized. IV pip/sivakumar, check BCx, trend PCT, and check respiratory virus panel. IV normal saline. # acute hypoxic respiratory failure - wean O2 as tolerated # septic encephalopathy - resolving with fluid resuscitation and treatment of infection # HLD - atorvastatin # bipolar disorder - divalproex, fluoxetine, trazodone # chronic constipation - bowel regimen # tube feeding - Nutrition consult # VTE ppx - LMWH. Remote hx PE treated with apixaban several years ago. # code - DNR/DNI as per [facility] and discussion with pt's guardian/HCP Yuko. She approves of the hospitalization despite [facility] stating patient should not be transferred to the hospital In my professional opinion, patient likely will stay 2 midnights in hospital due to the above reasons (hypoxia, sepsis, IV antibiotics) Quality Stroke Does the patient have a stroke diagnosis?: No VTE Prior VTE?: Yes VTE Risk Level:: Medical - moderate - high VTE Device Contraindication: N/A - Device Ordered VTE Drug Contraindication: N/A - Med Ordered
[2021-11-27] MEDS: clonazePAM 0.5 MG TABLET G-TUBE ×2 (10:19→15:08)
[2021-11-27] MEDS: Enoxaparin Sodium 40 MG/0.4 ML SYRINGE SUBCUT (10:19)
[2021-11-27 12:27] LABS: Adenovirus PCR Not Detected (Not Detect.); Bordetella parapertussis PCR Not Detected (Not Detect.); Bordetella pertussis PCR Not Detected (Not Detect.); Chlamydia pneumoniae PCR Not Detected (Not Detect.); Coronavirus 229E PCR Not Detected (Not Detect.); Coronavirus HKU1 PCR Not Detected (Not Detect.); Coronavirus NL63 PCR Not Detected (Not Detect.); Coronavirus OC43 PCR Not Detected (Not Detect.); Human metapneumovirus PCR Not Detected (Not Detect.); Influenza A PCR Not Detected (Not Detect.); Influenza B PCR Not Detected (Not Detect.); Mycoplasma pneumoniae PCR Not Detected (Not Detect.); Parainfluenza 1 PCR Not Detected (Not Detect.); Parainfluenza 2 PCR Not Detected (Not Detect.); Parainfluenza 3 PCR Not Detected (Not Detect.); Parainfluenza 4 PCR Not Detected (Not Detect.); RSV PCR Not Detected (Not Detect.); Rhino/Enterovirus PCR Not Detected (Not Detect.); SARS-CoV-2 PCR Not Detected (Not Detect.)
--- NOTE | 2021-11-27 12:46 | PC.NURSE ---
Spoke to project construction assistant manager from shelter, states pt receives fiber source HN 250 mL four times daily via gravity for tube feeds.
[2021-11-27 13:33] LABS: Hematocrit 35.2 % (37.0-47.0); Hemoglobin 11.2 g/dl (12.0-16.0); Mean Corpuscular HGB Conc 31.8 g/dl (31.0-35.0); Mean Corpuscular Hemoglobin 34.8 pg (27.0-33.0); Mean Corpuscular Volume 109.3 fL (80.0-98.0); Mean Platelet Volume 10.4 fL (9.4-12.3); Platelet Count 182 X10*3/uL (160-400); Red Blood Count 3.22 X10*6/uL (4.20-5.50); Red Cell Distribution Width 13.1 % (11.0-16.0); White Blood Count 18.9 X10*3/uL (4.8-10.8)
[2021-11-27 13:49] LABS: Anion Gap 12 (12-20); Blood Urea Nitrogen 7 mg/dL (9-16); Calcium 8.6 mg/dL (8.4-10.2); Carbon Dioxide 27 mmol/L (22-29); Chloride 111 mmol/L (96-108); Creatinine Clr Calc Pharmacy 109.5; Estimated Glomerular Filt Rate > 60; Glucose Random 94 mg/dL (60-115); Sodium 146 mmol/L (135-145)
--- NOTE | 2021-11-27 13:53 | PC.NURSE ---
Report given to Addie ALAN
[2021-11-27 13:56] LABS: Troponin-I High Sensitivity 8.3 ng/L (<3.5-17.0)
--- NOTE | 2021-11-27 16:07 | PHA.PROG ---
Admission Date/Time: November 27, 2021 09:27 Indication: Bacteremia Weight in k.8 kg Adjusted body weight in K.12 kg [place] body weight in K.0 kg Obesity Dosing Indication % IBW: Serum Creatinine - Last 168 Hours 11/26/21 11/27/21 22:46 13:25 Creatinine 0.64 0.52 Estimated CrCl and GFR - Last 168 Hours 11/26/21 11/27/21 22:46 13:25 Estim Creat Clear Calc 88.9 109.5 Estimated GFR > 60 > 60 Vancomycin Loading Dose: 1250mg (22.8 mg/kg) Current Vancomycin Dosing Regimen: 1000mg q12h Vancomycin Monitoring using AUC goal of 400 - 600 range with trough as surrogate marker: 479, trough 13.4 Date and Time for next Vancomycin Level to be drawn: 11/29 @0500 Pharmacist Comments on Vancomycin Plan: Spoke to Dr Farrar because patient had low serum creatinine. I wanted to make sure patient was otherwise fit 120lb pt with adequate muscle mass. Vancomycin dosing will take advantage of [employer] as a clinical decision support tool that uses Bayesian modeling to calculate individual patient's pharmacokinetic parameters and forecast the patient's drug concentration time course with the target goal AUC 24 range of 400 - 600 mg/L/hr.
[2021-11-27] MEDS: vancomycin HCL 1,250 MG in 0.9 % Sodium Chloride 250 ML 166.67 MG IV (17:02)
[2021-11-27] MEDS: Melatonin 3 MG TABLET G-TUBE (21:03)
[2021-11-27] MEDS: clonazePAM 1 MG TABLET 2 MG G-TUBE (21:05)
[2021-11-27] MEDS: traZODone HCL 50 MG TABLET G-TUBE (21:05)
[2021-11-27] MEDS: Atorvastatin Calcium 10 MG TABLET G-TUBE (21:05)
[2021-11-27] MEDS: Docusate Sodium 100 MG/10 ML LIQUID G-TUBE (21:06)
[2021-11-28 03:49] VITALS: BP 122/61; PULSE 75; RESP 18; TEMP 36.2; O2SAT 98
[2021-11-28] MEDS: 0.9 % Sodium Chloride 1,000 ML 100 ML IVCONT (04:02)
[2021-11-28 06:31] LABS: Hemoglobin 12.5 g/dl (12.0-16.0); Mean Corpuscular HGB Conc 31.3 g/dl (31.0-35.0); Mean Corpuscular Hemoglobin 34.8 pg (27.0-33.0); Mean Platelet Volume 10.7 fL (9.4-12.3); Platelet Count 173 X10*3/uL (160-400); Red Blood Count 3.59 X10*6/uL (4.20-5.50); Red Cell Distribution Width 13.3 % (11.0-16.0); White Blood Count 12.9 X10*3/uL (4.8-10.8)
[2021-11-28 06:33] LABS: Mean Corpuscular Volume 111.4 fL (80.0-98.0)
[2021-11-28] MEDS: vancomycin HCL 1,000 MG in 0.9 % Sodium Chloride 250 ML 270 MG IV (06:42)
[2021-11-28 06:47] LABS: Anion Gap 13 (12-20); Blood Urea Nitrogen 6 mg/dL (9-16); Carbon Dioxide 25 mmol/L (22-29); Chloride 112 mmol/L (96-108); Creatinine Clr Calc Pharmacy 109.5; Estimated Glomerular Filt Rate > 60; Glucose Random 72 mg/dL (60-115); Potassium 4.1 mmol/L (3.3-5.1); Sodium 146 mmol/L (135-145)
[2021-11-28 08:00] VITALS: BP 121/81; PULSE 75; RESP 18; TEMP 36.9; O2SAT 98
--- NOTE | 2021-11-28 09:12 | HE.PHANOTE ---
Vancomycin Dosing Addendum Continue with current regimen of vancomycin 1000 mg q12h. next trough 11/29/21 @0500.
[2021-11-28] MEDS: Docusate Sodium 100 MG/10 ML LIQUID G-TUBE ×2 (09:59→19:50)
[2021-11-28] MEDS: Morphine Sulfate 2 MG/ML CARTRIDGE IVPUSH ×4 (09:59→19:52)
[2021-11-28] MEDS: Enoxaparin Sodium 40 MG/0.4 ML SYRINGE SUBCUT (09:59)
[2021-11-28] MEDS: Folic Acid 1 MG TABLET G-TUBE (10:01)
[2021-11-28] MEDS: clonazePAM 0.5 MG TABLET G-TUBE ×2 (10:01→13:42)
[2021-11-28] MEDS: FLUoxetine HCl 10 MG CAPSULE G-TUBE (10:01)
[2021-11-28] MEDS: Cyanocobalamin (Vitamin B-12) 1,000 MCG TABLET 1000 MCG G-TUBE (10:01)
[2021-11-28] MEDS: FLUoxetine HCl 20 MG CAPSULE G-TUBE (10:01)
--- NOTE | 2021-11-28 11:09 | P.PNIM_ITS ---
Subjective Subjective Date of Service: 11/28/21 Interval History: More awake O2 requirement down to 1L 1 of 2 BCx positive for GPCs; started vancomycin; ended up growing CoNS Nonverbal; unable to obtain ROS Review of Systems Review of Systems: Yes Unobtainable due to mental status Physical Exam Vital Signs: Vital Signs: Last Vital Signs Temp 98.5 F 11/28/21 08:00 Pulse 75 11/28/21 08:00 Resp 18 11/28/21 08:00 BP 121/81 11/28/21 08:00 Pulse Ox 98 11/28/21 08:00 Oxygen Flow Rate 6 11/26/21 22:33 BMI result Body Mass Index 20.0 Gen: incomprehensible sounds but in NAD HEENT: sclera anicteric, dry mucus membranes Neck: supple Lungs: no respiratory distress, decreased air entry R base Heart: regular rate and rhythm, no murmurs Abd: soft, non-tender, non-distended, G tube in place Ext: no edema, contractures Skin: warm/well-perfused Neuro: alert, nonverbal, moving all extremities Psych: impaired insight Objective Data Active Medications Acetaminophen (Acetaminophen 325 Mg Tablet) 650 mg G-TUBE Q6H PRN PRN Reason: Pain, Mild (Pain Scale 1-3) Atorvastatin Calcium (Atorvastatin Calcium 10 Mg Tablet) 10 mg G-TUBE BEDTIME [facility] Last Admin: 11/27/21 21:05 Dose: 10 mg Documented by: HANANE Clonazepam (Clonazepam 0.5 Mg Tablet) 0.5 mg G-TUBE BID@0800,1400 [facility] Last Admin: 11/28/21 10:01 Dose: 0.5 mg Documented by: SHAWN Clonazepam (Clonazepam 1 Mg Tablet) 2 mg G-TUBE BEDTIME [facility] Last Admin: 11/27/21 21:05 Dose: 2 mg Documented by: HANANE Clotrimazole (Clotrimazole 1 % Cream 15 Gm Tube) 1 appl TOPICAL BID [facility]; Protocol Last Admin: 11/27/21 21:28 Dose: Not Given Documented by: HANANE Non-Admin Reason: not available Cyanocobalamin (Cyanocobalamin (Vitamin B-12) 1,000 Mcg Tablet) 1,000 mcg G- TUBE DAILY [facility] Last Admin: 11/28/21 10:01 Dose: 1,000 mcg Documented by: SHAWN Docusate Sodium (Docusate Sodium 100 Mg/10 Ml Liquid) 100 mg G-TUBE BID [facility] Last Admin: 11/28/21 09:59 Dose: 100 mg Documented by: SHAWN Enoxaparin Sodium (Enoxaparin Sodium 40 Mg/0.4 Ml Syringe) 40 mg SUBCUT Q24H [facility] Last Admin: 11/28/21 09:59 Dose: 40 mg Documented by: SHAWN Fluoxetine HCl (Fluoxetine Hcl 10 Mg Capsule) 10 mg G-TUBE DAILY [facility] Last Admin: 11/28/21 10:01 Dose: 10 mg Documented by: SHAWN Fluoxetine HCl (Fluoxetine Hcl 20 Mg Capsule) 20 mg G-TUBE DAILY [facility] Last Admin: 11/28/21 10:01 Dose: 20 mg Documented by: SHAWN Folic Acid (Folic Acid 1 Mg Tablet) 1 mg G-TUBE DAILY [facility] Last Admin: 11/28/21 10:01 Dose: 1 mg Documented by: SHAWN Sodium Chloride (Ns) 1,000 mls @ 100 mls/hr IVCONT .Q10H [facility] Last Admin: 11/28/21 04:02 Dose: 100 mls/hr Documented by: HANANE Piperacillin Sod/Tazobactam (Sod 4.5 gm/ Sodium Chloride) 50 mls @ 100 mls/hr IV Q6H [facility] Last Infusion: 11/28/21 09:38 Dose: 0 mls/hr Documented by: SHAWN Vancomycin HCl 1,000 mg/ (Sodium Chloride) 270 mls @ 270 mls/hr IV Q12H [facility] Last Infusion: 11/28/21 08:12 Dose: 0 mls/hr Documented by: SHAWN Melatonin (Melatonin 3 Mg Tablet) 3 mg G-TUBE BEDTIME [facility] Last Admin: 11/27/21 21:03 Dose: 3 mg Documented by: HANANE Morphine Sulfate (Morphine Sulfate 2 Mg/Ml Cartridge) 2 mg IVPUSH Q2H PRN; Protocol PRN Reason: severe pain Last Admin: 11/28/21 09:59 Dose: 2 mg Documented by: SHAWN Ondansetron HCl (Ondansetron Hcl 4 Mg/2 Ml Vial) 4 mg IVPUSH Q8H PRN PRN Reason: Nausea and Vomiting Senna (Senna [place] Extract Oral Syrup 15 Ml Syrup) 15 ml G-TUBE DAILY [facility] Last Admin: 11/28/21 10:01 Dose: 15 ml Documented by: SHAWN Sodium Chloride (0.9 % Sodium Chloride Flush 3 Ml Syringe) 3 ml IVFLUSH QSHIFT [facility] Last Admin: 11/28/21 08:05 Dose: Not Given Documented by: SHAWN Non-Admin Reason: IV Running Trazodone HCl (Trazodone Hcl 50 Mg Tablet) 50 mg G-TUBE BEDTIME [facility] Last Admin: 11/27/21 21:05 Dose: 50 mg Documented by: HANANE Triamcinolone Acetonide (Triamcinolone Acet 0.1 % Cream 15 Gm Tube) 1 appl TOPICAL BID [facility]; Protocol Last Admin: 11/27/21 22:54 Dose: Not Given Documented by: HANANE Non-Admin Reason: Med Not Available Valproic Acid (Valproic Acid (As Sodium Salt) 250 Mg/5 Ml Solution) 1,500 mg G- TUBE DAILY [facility] Last Admin: 11/28/21 10:00 Dose: 1,500 mg Documented by: SHAWN Valproic Acid (Valproic Acid (As Sodium Salt) 250 Mg/5 Ml Solution) 1,750 mg G- TUBE BEDTIME [facility] Last Admin: 11/27/21 21:05 Dose: 1,750 mg Documented by: HANANE Labs CBC & Chem 7: 11/28/21 06:14 11/28/21 06:14 Labs: Laboratory Results - last 24 hr 11/27/21 11/27/21 11/27/21 10:40 13:25 13:25 MCV 109.3 H MCH 34.8 H MCHC 31.8 RDW 13.1 Plt Count 182 MPV 10.4 Absolute Nucleated RBC 0.000 Nucleated RBC % (auto) 0.0 Anion Gap 12 Estim Creat Clear Calc 109.5 Estimated GFR > 60 Random Glucose 94 Calcium 8.6 Procalcitonin Respiratory Panel [place] See Note Adenovirus (Rapid PCR) Not Detected B.pert (TEM-PCR) Not Detected B.parapertussis DNA PCR Not Detected C. pneumoniae DNA (PCR) Not Detected Coronavirus OC43 (PCR) Not Detected Coronavirus HKU1 (PCR) Not Detected Coronavirus 229E (PCR) Not Detected Coronavirus NL63 (PCR) Not Detected Human Metapneumovir PCR Not Detected Influenza A (RT-PCR) Not Detected Influenza B (RT-PCR) Not Detected M. pneumoniae (PCR) Not Detected Parainfluenza 1 (PCR) Not Detected Parainfluenza 2 (PCR) Not Detected Parainfluenza 3 (PCR) Not Detected Parainfluenza 4 (PCR) Not Detected RSV (PCR) Not Detected Entero/Rhino (PCR) Not Detected SARS-CoV-2 RNA (RT-PCR) Not Detected 11/27/21 11/28/21 11/28/21 13:25 06:14 06:14 MCV 111.4 H MCH 34.8 H MCHC 31.3 RDW 13.3 Plt Count 173 MPV 10.7 Absolute Nucleated RBC 0.000 Nucleated RBC % (auto) 0.0 Anion Gap 13 Estim Creat Clear Calc 109.5 Estimated GFR > 60 Random Glucose 72 Calcium 9.0 Procalcitonin 0.20 Respiratory Panel [place] Adenovirus (Rapid PCR) B.pert (TEM-PCR) B.parapertussis DNA PCR C. pneumoniae DNA (PCR) Coronavirus OC43 (PCR) Coronavirus HKU1 (PCR) Coronavirus 229E (PCR) Coronavirus NL63 (PCR) Human Metapneumovir PCR Influenza A (RT-PCR) Influenza B (RT-PCR) M. pneumoniae (PCR) Parainfluenza 1 (PCR) Parainfluenza 2 (PCR) Parainfluenza 3 (PCR) Parainfluenza 4 (PCR) RSV (PCR) Entero/Rhino (PCR) SARS-CoV-2 RNA (RT-PCR) Assessment and Plan (1) Acute respiratory failure with hypoxia: Status: Acute (2) Severe sepsis: Status: Acute (3) Aspiration pneumonia: Status: Acute Plan hospital d#2 51 year-old woman with developmental delay, bipolar disorder, and tardive dyskinesia who resides at a assisted and is wheelchair- and bed-bound and G- tube dependent, with history of recurrent aspiration pneumonia presenting with respiratory distress and admitted with hypoxia and severe sepsis due to pneumonia # severe sepsis due to pneumonia, likely aspiration - lactate normalized.? IV pip/sivakumar d#2, RVP negative, trend PCT # bacteremia, not - d/c vancomycin # hyperNa, mild - start free water flushes, Nutrition consult # acute hypoxic respiratory failure - wean O2 as tolerated # septic encephalopathy - resolving with fluid resuscitation and treatment of infection # HLD - atorvastatin # bipolar disorder - divalproex, fluoxetine, trazodone # chronic constipation - bowel regimen # tube feeding - Nutrition consult # VTE ppx - LMWH.? Remote hx PE treated with apixaban several years ago. Quality Stroke Does the patient have a stroke diagnosis?: No VTE Prior VTE?: Yes VTE Risk Level:: Medical - moderate - high VTE Device Contraindication: N/A - Device Ordered VTE Drug Contraindication: N/A - Med Ordered
[2021-11-28 11:15] VITALS: BP 113/71; PULSE 98; RESP 18; TEMP 36.7; O2SAT 96
--- NOTE | 2021-11-28 13:17 | HE.PHANOTE ---
Zosyn <48 h of therapy, elevated WBC 1/2 positive blood cultures continue zosyn
--- NOTE | 2021-11-28 14:40 | MHC.CM.PN ---
PT IS A RESIDENT OF A SHELTER RUN BY [facility]. SHE REPORTS PT IS DEPENDENT FOR ALL CARE PT IS COVID VACCINATED PCP IS DR YULIET BLANCHARD DELIVERED CURRENT DC PLAN IS RETURN TO VIA S
--- NOTE | 2021-11-28 14:59 | PC.NURSE ---
Meg feedings, no residual. HOB elevated. Increased secretions at 1400. Unable to expectorate. Resp suctioned nasally with some eff. Morphine given for pain , was moaning Sleeping at time time
[2021-11-28 16:00] VITALS: BP 121/75; PULSE 88; RESP 15; TEMP 36.1; O2SAT 95
[2021-11-28] MEDS: 0.9 % Sodium Chloride Flush 3 ML SYRINGE IVFLUSH ×2 (17:50→19:51)
[2021-11-28 19:21] VITALS: BP 137/89; PULSE 86; RESP 19; O2SAT 95
[2021-11-28] MEDS: traZODone HCL 50 MG TABLET G-TUBE (19:51)
[2021-11-28] MEDS: Atorvastatin Calcium 10 MG TABLET G-TUBE (19:51)
[2021-11-28] MEDS: Melatonin 3 MG TABLET G-TUBE (19:51)
[2021-11-28] MEDS: clonazePAM 1 MG TABLET 2 MG G-TUBE (19:51)
[2021-11-28] MEDS: Piperacillin Sodium/Tazobactam 4.5 GM in 0.9 % Sodium Chloride 100 ML IV (19:54)
[2021-11-28 23:35] VITALS: BP 119/88; PULSE 87; RESP 20; TEMP 36; O2SAT 95
[2021-11-29] MEDS: 0.9 % Sodium Chloride 1,000 ML 100 ML IVCONT ×2 (00:30→08:46)
[2021-11-29] MEDS: Piperacillin Sodium/Tazobactam 4.5 GM in 0.9 % Sodium Chloride 100 ML IV ×4 (02:53→20:39)
[2021-11-29] MEDS: Morphine Sulfate 2 MG/ML CARTRIDGE IVPUSH ×3 (02:53→14:38)
[2021-11-29 03:35] VITALS: BP 126/69; PULSE 94; RESP 20; TEMP 36.6; O2SAT 92
[2021-11-29 06:49] VITALS: BP 142/74; RESP 16; TEMP 35.5; O2SAT 96
[2021-11-29 06:50] LABS: Anion Gap 15 (12-20); Blood Urea Nitrogen 5 mg/dL (9-16); Calcium 9.1 mg/dL (8.4-10.2); Carbon Dioxide 25 mmol/L (22-29); Chloride 108 mmol/L (96-108); Creatinine Clr Calc Pharmacy 113.8; Estimated Glomerular Filt Rate > 60; Glucose Random 76 mg/dL (60-115); Potassium 5.8 mmol/L (3.3-5.1); Sodium 142 mmol/L (135-145)
[2021-11-29 07:10] LABS: Procalcitonin 0.11 ng/mL
[2021-11-29] MEDS: Docusate Sodium 100 MG/10 ML LIQUID G-TUBE ×2 (08:43→20:38)
[2021-11-29] MEDS: FLUoxetine HCl 20 MG CAPSULE G-TUBE (08:43)
[2021-11-29] MEDS: FLUoxetine HCl 10 MG CAPSULE G-TUBE (08:43)
[2021-11-29] MEDS: Cyanocobalamin (Vitamin B-12) 1,000 MCG TABLET 1000 MCG G-TUBE (08:43)
[2021-11-29] MEDS: Folic Acid 1 MG TABLET G-TUBE (08:43)
[2021-11-29] MEDS: Enoxaparin Sodium 40 MG/0.4 ML SYRINGE SUBCUT (08:43)
[2021-11-29] MEDS: clonazePAM 0.5 MG TABLET G-TUBE ×2 (08:43→14:22)
[2021-11-29 08:59] LABS: Folate > 20.0 ng/mL (> or = 4.0); Vitamin B12 1980 pg/mL (200-900)
--- NOTE | 2021-11-29 09:38 | PC.NURSE ---
Skin/wound assessment completed today. Patient has stage 2 pressure injuries to right buttock, coccyx and right heel. All wounds cleansed with wound cleanser then Woundres gel applied to all wound beds covered with small foam dressing. Heelbos applied to bilateral feet. Turning and repositioning occurring q 2 hr.
[2021-11-29 10:02] LABS: Hematocrit 36.4 % (37.0-47.0); Mean Corpuscular HGB Conc 33.2 g/dl (31.0-35.0); Mean Corpuscular Hemoglobin 35.1 pg (27.0-33.0); Mean Corpuscular Volume 105.5 fL (80.0-98.0); Mean Platelet Volume 10.6 fL (9.4-12.3); Platelet Count 175 X10*3/uL (160-400); Red Blood Count 3.45 X10*6/uL (4.20-5.50); Red Cell Distribution Width 12.8 % (11.0-16.0); White Blood Count 8.7 X10*3/uL (4.8-10.8)
[2021-11-29 10:03] LABS: Hemoglobin 12.1 g/dl (12.0-16.0)
--- NOTE | 2021-11-29 10:35 | MHC.CLN ---
NUTRITION CONSULT FOR TUBE FEEDING. AT [facility], RECEIVING FIBERSOURCE HN, 250 ML 4 X DAILY VIA GRAVITY. PATIENT WITH HX ASPIRATION PNEUMONIA. INCREASED PROTEIN NEEDS WITH 3 STAGE II PRESSURE INJURIES (RIGHT BUTTOCK, COCCYX, RIGHT HEEL). RECOMMEND CONTINUOUS FEED WITH PROMOTE. MAX GOAL RATE PROMOTE AT 60 ML PER HOUR. PROVIDES 1440 KCAL (26.3 KCAL/KG); 90 G PROTEIN (1.64 G/KG). FLUSH 120 ML Q 8 HOURS. FORMULA PLUSH FLUSH PROVIDES 1568 ML FLUID (28.6 ML/KG). START AT MA GOAL 60 ML PER HOUR SINCE PATIENT ABLE TO TOLERATE BOLUS AT 250 ML.
[2021-11-29] MEDS: Clotrimazole 1 % Cream 15 GM TUBE 1 APPL TOPICAL ×2 (10:37→20:39)
[2021-11-29] MEDS: Triamcinolone Acet 0.1 % Cream 15 GM TUBE 1 APPL TOPICAL ×2 (10:37→20:40)
[2021-11-29] MEDS: 0.9 % Sodium Chloride Flush 3 ML SYRINGE IVFLUSH (10:37)
[2021-11-29 11:06] VITALS: BP 102/58; RESP 16; TEMP 36; O2SAT 96
--- NOTE | 2021-11-29 11:34 | P.PNIM_ITS ---
Subjective Subjective Date of Service: 11/29/21 Interval History: On 1L O2 via NC. Afebrile. Unable to obtain ROS due to pt's chronic mental status. Review of Systems Review of Systems: Yes Unobtainable due to mental status Physical Exam Vital Signs: Vital Signs: Last Vital Signs Temp 96.8 F 11/29/21 11:06 Pulse 94 11/29/21 03:35 Resp 16 11/29/21 11:06 BP 102/58 L 11/29/21 11:06 Pulse Ox 96 11/29/21 11:06 BMI result Body Mass Index 20.0 Gen: incomprehensible sounds but in NAD HEENT: sclera anicteric, dry mucus membranes Neck: supple Lungs: no respiratory distress, decreased air entry R base Heart: regular rate and rhythm, no murmurs Abd: soft, non-tender, non-distended, G tube in place Ext: no edema, contractures Skin: warm/well-perfused, stage 2 ulcers sacrum and heel Neuro: alert, nonverbal, moving all extremities Psych: impaired insight Objective Data Active Medications Acetaminophen (Acetaminophen 325 Mg Tablet) 650 mg G-TUBE Q6H PRN PRN Reason: Pain, Mild (Pain Scale 1-3) Atorvastatin Calcium (Atorvastatin Calcium 10 Mg Tablet) 10 mg G-TUBE BEDTIME [facility] Last Admin: 11/28/21 19:51 Dose: 10 mg Documented by: GIOVANNA Clonazepam (Clonazepam 0.5 Mg Tablet) 0.5 mg G-TUBE BID@0800,1400 [facility] Last Admin: 11/29/21 08:43 Dose: 0.5 mg Documented by: LAURYN Clonazepam (Clonazepam 1 Mg Tablet) 2 mg G-TUBE BEDTIME [facility] Last Admin: 11/28/21 19:51 Dose: 2 mg Documented by: GIOVANNA Clotrimazole (Clotrimazole 1 % Cream 15 Gm Tube) 1 appl TOPICAL BID [facility]; Protocol Last Admin: 11/29/21 10:37 Dose: 1 appl Documented by: LAURYN Cyanocobalamin (Cyanocobalamin (Vitamin B-12) 1,000 Mcg Tablet) 1,000 mcg G- TUBE DAILY [facility] Last Admin: 11/29/21 08:43 Dose: 1,000 mcg Documented by: LAURYN Docusate Sodium (Docusate Sodium 100 Mg/10 Ml Liquid) 100 mg G-TUBE BID [facility] Last Admin: 11/29/21 08:43 Dose: 100 mg Documented by: LAURYN Enoxaparin Sodium (Enoxaparin Sodium 40 Mg/0.4 Ml Syringe) 40 mg SUBCUT Q24H [facility] Last Admin: 11/29/21 08:43 Dose: 40 mg Documented by: LAURYN Fluoxetine HCl (Fluoxetine Hcl 10 Mg Capsule) 10 mg G-TUBE DAILY [facility] Last Admin: 11/29/21 08:43 Dose: 10 mg Documented by: LAURYN Fluoxetine HCl (Fluoxetine Hcl 20 Mg Capsule) 20 mg G-TUBE DAILY [facility] Last Admin: 11/29/21 08:43 Dose: 20 mg Documented by: LAURYN Folic Acid (Folic Acid 1 Mg Tablet) 1 mg G-TUBE DAILY [facility] Last Admin: 11/29/21 08:43 Dose: 1 mg Documented by: LAURYN Sodium Chloride (Ns) 1,000 mls @ 100 mls/hr IVCONT .Q10H [facility] Last Admin: 11/29/21 08:46 Dose: 100 mls/hr Documented by: LAURYN Piperacillin Sod/Tazobactam (Sod 4.5 gm/ Sodium Chloride) 100 mls @ 100 mls/hr IV Q6H [facility] Last Infusion: 11/29/21 10:36 Dose: 0 mls/hr Documented by: LAURYN Melatonin (Melatonin 3 Mg Tablet) 3 mg G-TUBE BEDTIME [facility] Last Admin: 11/28/21 19:51 Dose: 3 mg Documented by: GIOVANNA Morphine Sulfate (Morphine Sulfate 2 Mg/Ml Cartridge) 2 mg IVPUSH Q2H PRN; Protocol PRN Reason: severe pain Last Admin: 11/29/21 08:49 Dose: 2 mg Documented by: LAURYN Ondansetron HCl (Ondansetron Hcl 4 Mg/2 Ml Vial) 4 mg IVPUSH Q8H PRN PRN Reason: Nausea and Vomiting Senna (Senna [place] Extract Oral Syrup 15 Ml Syrup) 15 ml G-TUBE DAILY [facility] Last Admin: 11/29/21 08:43 Dose: 15 ml Documented by: LAURYN Sodium Chloride (0.9 % Sodium Chloride Flush 3 Ml Syringe) 3 ml IVFLUSH QSHIFT [facility] Last Admin: 11/29/21 10:37 Dose: 3 ml Documented by: LAURYN Trazodone HCl (Trazodone Hcl 50 Mg Tablet) 50 mg G-TUBE BEDTIME [facility] Last Admin: 11/28/21 19:51 Dose: 50 mg Documented by: GIOVANNA Triamcinolone Acetonide (Triamcinolone Acet 0.1 % Cream 15 Gm Tube) 1 appl TOPICAL BID [facility]; Protocol Last Admin: 11/29/21 10:37 Dose: 1 appl Documented by: LAURYN Valproic Acid (Valproic Acid (As Sodium Salt) 250 Mg/5 Ml Solution) 1,500 mg G- TUBE DAILY [facility] Last Admin: 11/29/21 08:43 Dose: 1,500 mg Documented by: LAURYN Valproic Acid (Valproic Acid (As Sodium Salt) 250 Mg/5 Ml Solution) 1,750 mg G-TUBE BEDTIME [facility] Last Admin: 11/28/21 19:50 Dose: 1,750 mg Documented by: GIOVANNA Labs CBC & Chem 7: 11/29/21 09:44 11/29/21 06:16 Labs: Laboratory Results - last 24 hr 11/27/21 11/28/21 11/29/21 13:25 06:14 06:16 MCV MCH MCHC RDW Plt Count MPV Absolute Nucleated RBC Nucleated RBC % (auto) Smear Path Review Anion Gap 15 Estim Creat Clear Calc 113.8 Estimated GFR > 60 Random Glucose 76 Calcium 9.1 Vitamin B12 1980 H Folate > 20.0 Procalcitonin 11/29/21 11/29/21 06:16 09:44 MCV 105.5 H D MCH 35.1 H MCHC 33.2 RDW 12.8 Plt Count 175 MPV 10.6 Absolute Nucleated RBC 0.000 Nucleated RBC % (auto) 0.0 Smear Path Review Anion Gap Estim Creat Clear Calc Estimated GFR Random Glucose Calcium Vitamin B12 Folate Procalcitonin 0.11 Assessment and Plan (1) Acute respiratory failure with hypoxia: Status: Acute (2) Severe sepsis: Status: Acute (3) Aspiration pneumonia: Status: Acute Plan hospital d#3 51 year-old woman with developmental delay, bipolar disorder, and tardive dyskinesia who [facility] and is wheelchair- and bed-bound and G- tube dependent, with history of recurrent aspiration pneumonia presenting with respiratory distress and admitted with hypoxia and severe sepsis due to pneumonia # severe sepsis due to pneumonia, likely aspiration - lactate normalized.? IV pip/sivakumar d#3, RVP negative, PCT decreasing - change bolus to continuous feeds # bacteremia, not - d/c vancomycin # hyperNa, mild - resolved # acute hypoxic respiratory failure - wean O2 as tolerated # septic encephalopathy - resolving with fluid resuscitation and treatment of infection # HLD - atorvastatin # bipolar disorder - divalproex, fluoxetine, trazodone # chronic constipation - bowel regimen # tube feeding - Nutrition consulted, change to Promote 60 mL/hr continuous x 24h, with 120 mL of H20 q8h # VTE ppx - LMWH.? Remote hx PE treated with apixaban several years ago. # dispo - will need to find out if jail can accommodate continuous feeding pump Quality Stroke Does the patient have a stroke diagnosis?: No VTE Prior VTE?: Yes VTE Risk Level:: Medical - moderate - high VTE Device Contraindication: N/A - Device Ordered VTE Drug Contraindication: N/A - Med Ordered
[2021-11-29] MEDS: Sodium Zirconium Cyclosilicate 10 GM POWD.PACK G-TUBE (14:22)
[2021-11-29 15:03] VITALS: BP 110/58; RESP 19; TEMP 36; O2SAT 94
--- NOTE | 2021-11-29 16:17 | MHC.CM.PN ---
nurse pillowcase folder note spoke with [facility] computer programmer chief [facility] [phone] patient is presently getting tube feeds via feeding bag gravity, she can return back to [facility] but they would need group formal teaching by her present home infusion co pia rodriguez feel comfortable discharge plan return back to the [facility] on contninous tube feeds pia home infusion referral sent vna to be iniated for reinforcement of tube feeding by pump to the [facility] transportation action [facility] vs [facility] transportation
--- NOTE | 2021-11-29 16:44 | PC.NURSE ---
P legs and hands swelling noted I Dr. Farrar made aware ,pt is getting IV fluids and tube feeding E will monitor
[2021-11-29 19:47] VITALS: BP 109/51; PULSE 86; RESP 18; TEMP 36.9; O2SAT 97
[2021-11-29] MEDS: clonazePAM 1 MG TABLET 2 MG G-TUBE (20:39)
[2021-11-29] MEDS: Melatonin 3 MG TABLET G-TUBE (20:39)
[2021-11-29] MEDS: traZODone HCL 50 MG TABLET G-TUBE (20:39)
[2021-11-29] MEDS: Atorvastatin Calcium 10 MG TABLET G-TUBE (20:39)
[2021-11-29 23:48] VITALS: BP 105/74; PULSE 75; RESP 16; TEMP 36; O2SAT 93
[2021-11-30] MEDS: 0.9 % Sodium Chloride Flush 3 ML SYRINGE IVFLUSH ×4 (01:04→23:34)
[2021-11-30] MEDS: Piperacillin Sodium/Tazobactam 4.5 GM in 0.9 % Sodium Chloride 100 ML IV ×4 (02:30→20:04)
[2021-11-30 03:52] VITALS: BP 104/74; PULSE 63; RESP 14; TEMP 36.4; O2SAT 95
[2021-11-30 06:50] VITALS: BP 110/58; PULSE 110; RESP 19; TEMP 36.1
[2021-11-30] MEDS: FLUoxetine HCl 10 MG CAPSULE G-TUBE (08:09)
[2021-11-30] MEDS: Acetaminophen 325 MG TABLET 650 MG G-TUBE (08:09)
[2021-11-30] MEDS: FLUoxetine HCl 20 MG CAPSULE G-TUBE (08:09)
[2021-11-30] MEDS: Triamcinolone Acet 0.1 % Cream 15 GM TUBE 1 APPL TOPICAL ×2 (08:09→20:04)
[2021-11-30] MEDS: clonazePAM 0.5 MG TABLET G-TUBE ×2 (08:09→14:25)
[2021-11-30] MEDS: Folic Acid 1 MG TABLET G-TUBE (08:09)
[2021-11-30] MEDS: Cyanocobalamin (Vitamin B-12) 1,000 MCG TABLET 1000 MCG G-TUBE (08:09)
[2021-11-30] MEDS: Docusate Sodium 100 MG/10 ML LIQUID G-TUBE ×2 (08:09→20:03)
[2021-11-30] MEDS: Clotrimazole 1 % Cream 15 GM TUBE 1 APPL TOPICAL ×2 (08:10→20:04)
[2021-11-30 09:16] LABS: Anion Gap 11 (12-20); Calcium 8.8 mg/dL (8.4-10.2); Carbon Dioxide 33 mmol/L (22-29); Chloride 105 mmol/L (96-108); Creatinine Clr Calc Pharmacy 109.5; Estimated Glomerular Filt Rate > 60; Glucose Random 67 mg/dL (60-115); Sodium 145 mmol/L (135-145)
[2021-11-30 09:36] LABS: Blood Urea Nitrogen 11 mg/dL (9-16); Potassium 4.2 mmol/L (3.3-5.1)
[2021-11-30 11:03] VITALS: BP 112/58; PULSE 72; RESP 20; TEMP 35.5; O2SAT 90
[2021-11-30] MEDS: Enoxaparin Sodium 40 MG/0.4 ML SYRINGE SUBCUT (11:37)
--- NOTE | 2021-11-30 12:26 | MHC.CM.PN ---
nurse bottle caser note patient transferred to medical surgical floor from [facility]. patient was ASSESSED BY THE CARE TEAM ON 11/26/21 ( DID NOT PRESENTING WITH ACUTE PSYCHIATRIC SYMPTOMS AT THIS TIME NECESSITATING A CRISI EVALUATION. PATIENTS BASELINE IS NOTABLY DIFFERENT PRIORN PATIENT IS FOLLOWED BY PSYCH THROUGHOUT HER STAY. HER HEALTH CARE PROXY HAS BEEN INVOKED) 1ST HCP CATALINO BARILLAS [address] [phone] PATIENT HAS BEEN DENIED FOR STR BY [facility], HCP MARGARET IS WORKING WITH [employer], TO OBTAIN THE FINANCIAL RECORDS NEED FOR [employer] APPLICATION ELIGEABILITY DISCHARGE PLAN DIRECTOR OF PUBLIC SAFETY CARE PLACEMENT ONCE [employer] HAS APPROVED L
--- NOTE | 2021-11-30 12:46 | MHC.CM.PN ---
Addendum entered by Alysa Reagan 11/30/21 15:04: guardian hcp/ ana [facility] [phone], guardian paperwork faxed at request from [facility] and updated on allscripts spoke with ana she is requesting that zulay at the [facility] call her she wants her and the hospitalist call pcp brittni vela before she will approve patient o be d/c on continuous feeds Original Note: NURSE WOOD PILE DRIVER OPERATORMANAGER OFFICE MEDICAL RECORD REVIEWED ALONG WITH CASE DISCUSSED WITH HOSPITALIST JERAMIE [facility] PROJECT WIRE DRAWER [phone]/ [facility] NURSE [phone] EXT [phone] AWARE OF FEEDING CHANGED TO CONTIINOUS Promote 60 mL/hr continuous x 24h, with 120 mL of H20 q8h0 THEY ARE REQUESTING FORMAL TEACH FOR CONTINOUS FEEDS AND PUMP BY OSKAR (PREVIOUSLY ON NESTLE FIBER SOURCE HN 250 CC BOLUS BAG 4X DAILY) DISCHARGE PLAN RETURN BACK TO THE [facility], [facility] NEW VNA REFERRAL TO [facility] FOR NURSING AND ASSESSMENT AND TEACHING FOLLOW UP FOR CONTINUOS GT FEEDS [phone] [facility]UMPT[facility] OF HOME INFUSION COMPANY OSKAR WALDRON PROVID FEED AND ALL SUPPLIES BOLUS PRIOR TO ADMISSION [facility] FOR ENTERAL FEEDS SUE SLOT SHIFT MANAGER [phone] TRANSORTATION ACTION S [facility] NURSE ZULAY [phone] ET [phone] [facility] BUILDING ESTIMATOR KANU [phone] TRANSIT PLANNING MANAGER TO CONTINUE TO FOLLOW
--- NOTE | 2021-11-30 12:51 | P.PNIM_ITS ---
Subjective Subjective Date of Service: 11/30/21 Interval History: per staff; no acute issues overnight Review of Systems unable to obtain secondary to the dementia Physical Exam Vital Signs: Vital Signs: Last Vital Signs Temp 96 F L 11/30/21 11:03 Pulse 72 11/30/21 11:03 Resp 20 11/30/21 11:03 BP 112/58 L 11/30/21 11:03 Pulse Ox 90 L 11/30/21 11:03 Oxygen Flow Rate 6 11/26/21 22:33 BMI result Body Mass Index 20.0 Const: Other: no acute distress Resp: Other: scant coarse rhonchi throughout; coarse crackles right base Cardio: Other: no S4; positive S1-S2; S3 murmurs or gallops GI: Other: soft nontender nondistended positive bowel sounds. G-tube site clean dry and intact Extrem: Other: no edema bilaterally Objective Data Active Medications Acetaminophen (Acetaminophen 325 Mg Tablet) 650 mg G-TUBE Q6H PRN PRN Reason: Pain, Mild (Pain Scale 1-3) Last Admin: 11/30/21 08:09 Dose: 650 mg Documented by: LAURYN Atorvastatin Calcium (Atorvastatin Calcium 10 Mg Tablet) 10 mg G-TUBE BEDTIME [facility] Last Admin: 11/29/21 20:39 Dose: 10 mg Documented by: NENITA Clonazepam (Clonazepam 0.5 Mg Tablet) 0.5 mg G-TUBE BID@0800,1400 [facility] Last Admin: 11/30/21 08:09 Dose: 0.5 mg Documented by: LAURYN Clonazepam (Clonazepam 1 Mg Tablet) 2 mg G-TUBE BEDTIME [facility] Last Admin: 11/29/21 20:39 Dose: 2 mg Documented by: NENITA Clotrimazole (Clotrimazole 1 % Cream 15 Gm Tube) 1 appl TOPICAL BID [facility]; Protocol Last Admin: 11/30/21 08:10 Dose: 1 appl Documented by: LAURYN Cyanocobalamin (Cyanocobalamin (Vitamin B-12) 1,000 Mcg Tablet) 1,000 mcg G-T UBE DAILY [facility] Last Admin: 11/30/21 08:09 Dose: 1,000 mcg Documented by: LAURYN Docusate Sodium (Docusate Sodium 100 Mg/10 Ml Liquid) 100 mg G-TUBE BID [facility] Last Admin: 11/30/21 08:09 Dose: 100 mg Documented by: LAURYN Enoxaparin Sodium (Enoxaparin Sodium 40 Mg/0.4 Ml Syringe) 40 mg SUBCUT Q24H [facility] Last Admin: 11/30/21 11:37 Dose: 40 mg Documented by: LAURYN Fluoxetine HCl (Fluoxetine Hcl 10 Mg Capsule) 10 mg G-TUBE DAILY [facility] Last Admin: 11/30/21 08:09 Dose: 10 mg Documented by: LAURYN Fluoxetine HCl (Fluoxetine Hcl 20 Mg Capsule) 20 mg G-TUBE DAILY [facility] Last Admin: 11/30/21 08:09 Dose: 20 mg Documented by: LAURYN Folic Acid (Folic Acid 1 Mg Tablet) 1 mg G-TUBE DAILY [facility] Last Admin: 11/30/21 08:09 Dose: 1 mg Documented by: LAURYN Piperacillin Sod/Tazobactam (Sod 4.5 gm/ Sodium Chloride) 100 mls @ 100 mls/hr IV Q6H [facility] Last Infusion: 11/30/21 09:12 Dose: 0 mls/hr Documented by: LAURYN Melatonin (Melatonin 3 Mg Tablet) 3 mg G-TUBE BEDTIME [facility] Last Admin: 11/29/21 20:39 Dose: 3 mg Documented by: NNEITA Morphine Sulfate (Morphine Sulfate 2 Mg/Ml Cartridge) 2 mg IVPUSH Q2H PRN; Protocol PRN Reason: severe pain Last Admin: 11/29/21 14:38 Dose: 2 mg Documented by: LAURYN Ondansetron HCl (Ondansetron Hcl 4 Mg/2 Ml Vial) 4 mg IVPUSH Q8H PRN PRN Reason: Nausea and Vomiting Senna (Senna [place] Extract Oral Syrup 15 Ml Syrup) 15 ml G-TUBE DAILY [facility] Last Admin: 11/30/21 08:09 Dose: 15 ml Documented by: LAURYN Sodium Chloride (0.9 % Sodium Chloride Flush 3 Ml Syringe) 3 ml IVFLUSH QSHIFT [facility] Last Admin: 11/30/21 08:09 Dose: 3 ml Documented by: LAURYN Trazodone HCl (Trazodone Hcl 50 Mg Tablet) 50 mg G-TUBE BEDTIME [facility] Last Admin: 11/29/21 20:39 Dose: 50 mg Documented by: NENITA Triamcinolone Acetonide (Triamcinolone Acet 0.1 % Cream 15 Gm Tube) 1 appl TOPICAL BID [facility]; Protocol Last Admin: 11/30/21 08:09 Dose: 1 appl Documented by: LAURYN Valproic Acid (Valproic Acid (As Sodium Salt) 250 Mg/5 Ml Solution) 1,500 mg G- TUBE DAILY [facility] Last Admin: 11/30/21 08:08 Dose: 1,500 mg Documented by: LAURYN Valproic Acid (Valproic Acid (As Sodium Salt) 250 Mg/5 Ml Solution) 1,750 mg G- TUBE BEDTIME [facility] Last Admin: 11/29/21 20:35 Dose: 1,750 mg Documented by: NENITA Labs CBC & Chem 7: 11/29/21 09:44 11/30/21 08:24 Labs: Laboratory Results - last 24 hr 11/30/21 08:24 Anion Gap 11 L Estim Creat Clear Calc 109.5 Estimated GFR > 60 Random Glucose 67 Calcium 8.8 Assessment and Plan (1) Acute respiratory failure with hypoxia: Status: Acute (2) Aspiration pneumonia: Status: Acute Plan 51 year-old woman with developmental delay, bipolar disorder, and tardive dyskinesia who resides at a skilled nursing and is wheelchair- and bed-bound and G- tube dependent, with history of recurrent aspiration pneumonia presenting with respiratory distress and admitted with hypoxia and severe sepsis due to pneumonia 1. Aspiration Pneumonia - IV pip/sivakumar(3) - change bolus to continuous feeds -BC negative x 48hrs - wean O2 as tolerated 2. Hyperlipidemia - atorvastatin 3.Bipolar disorder - divalproex, fluoxetine, trazodone 4.Development elay -continuous tube feeds as per [employer] -skilled nursing working on accepting continuous feed LMWH.? DNR/DNI will need at least 1 more midnight as facility attempts to adjust for co ntinuous feeds Quality Stroke Does the patient have a stroke diagnosis?: No VTE Prior VTE?: Yes VTE Risk Level:: Medical - moderate - high VTE Device Contraindication: N/A - Device Ordered VTE Drug Contraindication: N/A - Med Ordered
[2021-11-30 15:06] VITALS: BP 112/56; PULSE 106; RESP 18; TEMP 36.8; O2SAT 95
[2021-11-30 19:11] VITALS: BP 117/63; PULSE 65; RESP 18; TEMP 37; O2SAT 96
[2021-11-30] MEDS: traZODone HCL 50 MG TABLET G-TUBE (20:02)
[2021-11-30] MEDS: Melatonin 3 MG TABLET G-TUBE (20:02)
[2021-11-30] MEDS: Atorvastatin Calcium 10 MG TABLET G-TUBE (20:02)
[2021-11-30] MEDS: clonazePAM 1 MG TABLET 2 MG G-TUBE (20:02)
[2021-11-30 23:27] VITALS: BP 112/65; PULSE 95; RESP 18; TEMP 36.8; O2SAT 95
[2021-12-01] MEDS: Piperacillin Sodium/Tazobactam 4.5 GM in 0.9 % Sodium Chloride 100 ML IV ×4 (02:41→19:44)
[2021-12-01 03:46] VITALS: BP 122/65; PULSE 95; RESP 17; TEMP 36.4; O2SAT 96
[2021-12-01 06:14] LABS: MANUAL DIFF FLAG NO
[2021-12-01 06:17] LABS: Basophils Percent Auto 0.2 % (0-2); Eosinophils Percent Auto 0.7 % (0-4); Hematocrit 40.2 % (37.0-47.0); Imm Gran Abs Auto 0.02 X10*3/uL (0.00-0.03); Imm Gran Pct Auto 0.4 % (0.0-0.4); Lymphocytes Absolute Auto 1.5 X10*3/uL (1.2-4.9); Lymphocytes Percent Auto 33.6 % (20-40); Mean Corpuscular HGB Conc 32.3 g/dl (31.0-35.0); Mean Corpuscular Hemoglobin 34.3 pg (27.0-33.0); Mean Corpuscular Volume 106.1 fL (80.0-98.0); Monocytes Absolute Auto 0.5 X10*3/uL (0.1-1.2); Neutrophils Absolute Auto 2.4 x10*3/uL (2.0-8.3); Neutrophils Percent Auto 54.1 % (45-73); Platelet Count 180 X10*3/uL (160-400); Red Blood Count 3.79 X10*6/uL (4.20-5.50); Red Cell Distribution Width 12.5 % (11.0-16.0); White Blood Count 4.5 X10*3/uL (4.8-10.8)
[2021-12-01 06:35] LABS: Alanine Aminotransferase 10 U/L (0-31); Albumin Level 2.5 g/dL (3.5-5.0); Alkaline Phosphatase 61 U/L (39-117); Anion Gap 10 (12-20); Aspartate Amino Transferase 12 U/L (5-31); Bilirubin Total 0.5 mg/dL (0.0-1.0); Blood Urea Nitrogen 14 mg/dL (9-16); Calcium 8.9 mg/dL (8.4-10.2); Carbon Dioxide 34 mmol/L (22-29); Chloride 103 mmol/L (96-108); Creatinine Clr Calc Pharmacy 99.9; Estimated Glomerular Filt Rate > 60; Glucose Fasting 83 mg/dL (60-99); Potassium 4.6 mmol/L (3.3-5.1); Sodium 142 mmol/L (135-145); Total Protein 4.9 g/dL (6.5-8.0)
[2021-12-01 07:12] VITALS: BP 138/71; PULSE 74; RESP 20; TEMP 37.1; O2SAT 98
[2021-12-01] MEDS: clonazePAM 0.5 MG TABLET G-TUBE ×2 (08:57→13:50)
[2021-12-01] MEDS: Folic Acid 1 MG TABLET G-TUBE (08:57)
[2021-12-01] MEDS: Docusate Sodium 100 MG/10 ML LIQUID G-TUBE (08:58)
[2021-12-01] MEDS: FLUoxetine HCl 20 MG CAPSULE G-TUBE (08:58)
[2021-12-01] MEDS: Cyanocobalamin (Vitamin B-12) 1,000 MCG TABLET 1000 MCG G-TUBE (08:58)
[2021-12-01] MEDS: FLUoxetine HCl 10 MG CAPSULE G-TUBE (08:59)
[2021-12-01] MEDS: Clotrimazole 1 % Cream 15 GM TUBE 1 APPL TOPICAL ×2 (08:59→19:49)
[2021-12-01] MEDS: Triamcinolone Acet 0.1 % Cream 15 GM TUBE 1 APPL TOPICAL ×2 (09:00→19:50)
[2021-12-01] MEDS: Enoxaparin Sodium 40 MG/0.4 ML SYRINGE SUBCUT (09:00)
[2021-12-01] MEDS: 0.9 % Sodium Chloride Flush 3 ML SYRINGE IVFLUSH ×3 (09:01→23:46)
[2021-12-01 11:28] VITALS: BP 107/64; PULSE 62; RESP 17; TEMP 36.4; O2SAT 97
--- NOTE | 2021-12-01 13:19 | MHC.CLN ---
F/U TUBE FEEDING RUNNING AT MAX GOAL RATE PROMOTE AT 60 ML PER HOUR. PROVIDES 1440 KCAL (26.3 KCAL/KG); 90 G PROTEIN (1.64 G/KG). FLUSH 120 ML Q 8 HOURS. FORMULA PLUS FLUSH PROVIDES 1568 ML FLUID (28.6 ML/KG). RD RECOMMENDS CONTINUOUS FEED DUE TO HX ASPIRATION PNEUMONIA. INCREASED PROTEIN NEEDS WITH 3 STAGE II PRESSURE INJURIES (RIGHT BUTTOCK, COCCYX, RIGHT HEEL). CONTINUE TO FOLLOW LABS, WOUNDS AND TUBE FEED TOLERANCE.
--- NOTE | 2021-12-01 14:58 | P.PNIM_ITS ---
Subjective Subjective Date of Service: 12/01/21 Interval History: per staff; no acute issues overnight Review of Systems unable to obtain secondary to the dementia Physical Exam Vital Signs: Vital Signs: Last Vital Signs Temp 97.5 F 12/01/21 11:28 Pulse 62 12/01/21 11:28 Resp 17 12/01/21 11:28 BP 107/64 12/01/21 11:28 Pulse Ox 97 12/01/21 11:28 Oxygen Flow Rate 6 11/26/21 22:33 BMI result Body Mass Index 20.0 Const: Other: no acute distress Resp: Other: scant coarse rhonchi throughout; coarse crackles right base Cardio: Other: no S4; positive S1-S2; S3 murmurs or gallops GI: Other: soft nontender nondistended positive bowel sounds. G-tube site clean dry and intact Extrem: Other: no edema bilaterally Objective Data Active Medications Acetaminophen (Acetaminophen 325 Mg Tablet) 650 mg G-TUBE Q6H PRN PRN Reason: Pain, Mild (Pain Scale 1-3) Last Admin: 11/30/21 08:09 Dose: 650 mg Documented by: LAURYN Atorvastatin Calcium (Atorvastatin Calcium 10 Mg Tablet) 10 mg G-TUBE BEDTIME [facility] Last Admin: 11/30/21 20:02 Dose: 10 mg Documented by: NENITA Clonazepam (Clonazepam 0.5 Mg Tablet) 0.5 mg G-TUBE BID@0800,1400 [facility] Last Admin: 12/01/21 13:50 Dose: 0.5 mg Documented by: DAGOBERTO Clonazepam (Clonazepam 1 Mg Tablet) 2 mg G-TUBE BEDTIME [facility] Last Admin: 11/30/21 20:02 Dose: 2 mg Documented by: NENITA Clotrimazole (Clotrimazole 1 % Cream 15 Gm Tube) 1 appl TOPICAL BID [facility]; Protocol Last Admin: 12/01/21 08:59 Dose: 1 appl Documented by: DAGOBERTO Cyanocobalamin (Cyanocobalamin (Vitamin B-12) 1,000 Mcg Tablet) 1,000 mcg G-T UBE DAILY [facility] Last Admin: 12/01/21 08:58 Dose: 1,000 mcg Documented by: DAGOBERTO Docusate Sodium (Docusate Sodium 100 Mg/10 Ml Liquid) 100 mg G-TUBE BID [facility] Last Admin: 12/01/21 08:58 Dose: 100 mg Documented by: DAGOBERTO Enoxaparin Sodium (Enoxaparin Sodium 40 Mg/0.4 Ml Syringe) 40 mg SUBCUT Q24H [facility] Last Admin: 12/01/21 09:00 Dose: 40 mg Documented by: DAGOBERTO Fluoxetine HCl (Fluoxetine Hcl 10 Mg Capsule) 10 mg G-TUBE DAILY [facility] Last Admin: 12/01/21 08:59 Dose: 10 mg Documented by: DAGOBERTO Fluoxetine HCl (Fluoxetine Hcl 20 Mg Capsule) 20 mg G-TUBE DAILY [facility] Last Admin: 12/01/21 08:58 Dose: 20 mg Documented by: DAGOBERTO Folic Acid (Folic Acid 1 Mg Tablet) 1 mg G-TUBE DAILY [facility] Last Admin: 12/01/21 08:57 Dose: 1 mg Documented by: DAGOBERTO Piperacillin Sod/Tazobactam (Sod 4.5 gm/ Sodium Chloride) 100 mls @ 100 mls/hr IV Q6H [facility] Last Admin: 12/01/21 13:50 Dose: 100 mls/hr Documented by: DAGOBERTO Melatonin (Melatonin 3 Mg Tablet) 3 mg G-TUBE BEDTIME [facility] Last Admin: 11/30/21 20:02 Dose: 3 mg Documented by: NENITA Morphine Sulfate (Morphine Sulfate 2 Mg/Ml Cartridge) 2 mg IVPUSH Q2H PRN; Protocol PRN Reason: severe pain Last Admin: 11/29/21 14:38 Dose: 2 mg Documented by: LAURYN Ondansetron HCl (Ondansetron Hcl 4 Mg/2 Ml Vial) 4 mg IVPUSH Q8H PRN PRN Reason: Nausea and Vomiting Senna (Senna [place] Extract Oral Syrup 15 Ml Syrup) 15 ml G-TUBE DAILY [facility] Last Admin: 12/01/21 08:58 Dose: 15 ml Documented by: DAGOBERTO Sodium Chloride (0.9 % Sodium Chloride Flush 3 Ml Syringe) 3 ml IVFLUSH QSHIFT [facility] Last Admin: 12/01/21 09:01 Dose: 3 ml Documented by: DAGOBERTO Trazodone HCl (Trazodone Hcl 50 Mg Tablet) 50 mg G-TUBE BEDTIME [facility] Last Admin: 11/30/21 20:02 Dose: 50 mg Documented by: HO.BEIT Triamcinolone Acetonide (Triamcinolone Acet 0.1 % Cream 15 Gm Tube) 1 appl TOPICAL BID [facility]; Protocol Last Admin: 12/01/21 09:00 Dose: 1 appl Documented by: DAGOBERTO Valproic Acid (Valproic Acid (As Sodium Salt) 250 Mg/5 Ml Solution) 1,500 mg G- TUBE DAILY [facility] Last Admin: 12/01/21 08:58 Dose: 1,500 mg Documented by: DAGOBERTO Valproic Acid (Valproic Acid (As Sodium Salt) 250 Mg/5 Ml Solution) 1,750 mg G- TUBE BEDTIME [facility] Last Admin: 11/30/21 20:03 Dose: 1,750 mg Documented by: NENITA Labs CBC & Chem 7: 12/01/21 06:03 12/01/21 06:03 Labs: Laboratory Results - last 24 hr 12/01/21 12/01/21 06:03 06:03 MCV 106.1 H MCH 34.3 H MCHC 32.3 RDW 12.5 Plt Count 180 MPV 10.0 Immature Gran % (Auto) 0.4 Neut % (Auto) 54.1 Lymph % (Auto) 33.6 [place] % (Auto) 11.0 Eos % (Auto) 0.7 Baso % (Auto) 0.2 Lymph # (Auto) 1.5 [place] # (Auto) 0.5 Eos # (Auto) 0.0 Baso # (Auto) 0.0 Abs Immat Gran (auto) 0.02 Absolute Neuts (auto) 2.4 Absolute Nucleated RBC 0.000 Nucleated RBC % (auto) 0.0 Anion Gap 10 L Estim Creat Clear Calc 99.9 Estimated GFR > 60 Fasting Glucose 83 Calcium 8.9 Total Bilirubin 0.5 AST 12 ALT 10 Alkaline Phosphatase 61 D Total Protein 4.9 L Albumin 2.5 L D Assessment and Plan (1) Aspiration pneumonia: Status: Acute (2) Acute respiratory failure with hypoxia: Status: Acute Plan 51 year-old woman with developmental delay, bipolar disorder, and tardive dyskinesia who resides at a halfway and is wheelchair- and bed-bound and G- tube dependent, with history of recurrent aspiration pneumonia presenting with respiratory distress and admitted with hypoxia and severe sepsis due to pneumonia 1. Aspiration Pneumonia - IV pip/sivakumar(4) - change bolus to continuous feeds; Spoke with PCP/guardian. Both agree with continuous feedings - wean O2 as tolerated 2. Hyperlipidemia - atorvastatin 3.Bipolar disorder - divalproex, fluoxetine, trazodone 4.Development elay -continuous tube feeds as per Diversional Therapist -halfway working on accepting continuous feed LMWH.? DNR/DNI will need at least 1 more midnight as facility attempts to adjust for continuous feeds Quality Stroke Does the patient have a stroke diagnosis?: No VTE Prior VTE?: Yes VTE Risk Level:: Medical - moderate - high VTE Device Contraindication: N/A - Device Ordered VTE Drug Contraindication: N/A - Med Ordered
[2021-12-01 15:06] VITALS: BP 134/56; PULSE 63; RESP 18; TEMP 36.8; O2SAT 96
[2021-12-01 19:33] VITALS: BP 124/60; PULSE 65; RESP 18; TEMP 36.6; O2SAT 96
[2021-12-01] MEDS: Atorvastatin Calcium 10 MG TABLET G-TUBE (19:45)
[2021-12-01] MEDS: traZODone HCL 50 MG TABLET G-TUBE (19:45)
[2021-12-01] MEDS: Melatonin 3 MG TABLET G-TUBE (19:45)
[2021-12-01] MEDS: clonazePAM 1 MG TABLET 2 MG G-TUBE (19:45)
[2021-12-01 23:42] VITALS: PULSE 72; RESP 18; TEMP 36.2; O2SAT 97
[2021-12-02] VITALS (8 sets, daily range): BP systolic 90–128; BP diastolic 50–83; PULSE 60–96; RESP 14–20; TEMP 35.8–37.3; O2SAT 92–100
[2021-12-02] MEDS: Piperacillin Sodium/Tazobactam 4.5 GM in 0.9 % Sodium Chloride 100 ML IV ×4 (02:27→20:57)
[2021-12-02 06:38] LABS: MANUAL DIFF FLAG NO
[2021-12-02 06:51] LABS: Basophils Percent Auto 0.2 % (0-2); Eosinophils Percent Auto 0.6 % (0-4); Hematocrit 37.1 % (37.0-47.0); Hemoglobin 12.1 g/dl (12.0-16.0); Imm Gran Abs Auto 0.06 X10*3/uL (0.00-0.03); Imm Gran Pct Auto 1.2 % (0.0-0.4); Lymphocytes Absolute Auto 2.1 X10*3/uL (1.2-4.9); Lymphocytes Percent Auto 41.6 % (20-40); Mean Corpuscular HGB Conc 32.6 g/dl (31.0-35.0); Mean Corpuscular Hemoglobin 34.6 pg (27.0-33.0); Mean Platelet Volume 9.8 fL (9.4-12.3); Monocytes Absolute Auto 0.6 X10*3/uL (0.1-1.2); Monocytes Percent Auto 12.6 % (2-11); Neutrophils Absolute Auto 2.2 x10*3/uL (2.0-8.3); Neutrophils Percent Auto 43.8 % (45-73); Platelet Count 183 X10*3/uL (160-400); Red Cell Distribution Width 12.8 % (11.0-16.0); White Blood Count 4.9 X10*3/uL (4.8-10.8)
[2021-12-02] MEDS: 0.9 % Sodium Chloride Flush 3 ML SYRINGE IVFLUSH ×3 (07:52→22:30)
[2021-12-02] MEDS: Clotrimazole 1 % Cream 15 GM TUBE 1 APPL TOPICAL ×2 (07:52→21:33)
[2021-12-02] MEDS: Triamcinolone Acet 0.1 % Cream 15 GM TUBE 1 APPL TOPICAL ×2 (07:52→21:34)
[2021-12-02 07:57] LABS: Alanine Aminotransferase 8 U/L (0-31); Albumin Level 2.3 g/dL (3.5-5.0); Alkaline Phosphatase 59 U/L (39-117); Anion Gap 9 (12-20); Aspartate Amino Transferase 11 U/L (5-31); Bilirubin Total 0.4 mg/dL (0.0-1.0); Blood Urea Nitrogen 18 mg/dL (9-16); Calcium 8.6 mg/dL (8.4-10.2); Carbon Dioxide 32 mmol/L (22-29); Chloride 102 mmol/L (96-108); Creatinine Clr Calc Pharmacy 96.5; Estimated Glomerular Filt Rate > 60; Glucose Fasting 86 mg/dL (60-99); Potassium 4.7 mmol/L (3.3-5.1); Sodium 138 mmol/L (135-145); Total Protein 4.5 g/dL (6.5-8.0)
--- NOTE | 2021-12-02 09:02 | MHC.CM.PN ---
Addendum entered by Alysa Reagan 12/03/21 12:03: DISCHARGE PLAN RETURN BACK TO THE [facility], [facility] - ON MONDAY NEW VNA REFERRAL TO [facility] FOR NURSING AND ASSESSMENT AND TEACHING FOLLOW UP FOR CONTINUOS GT FEEDS [phone] SPOKE WITH RENÉ 12/03/21 UPDATE RESUMPTION OF HOME INFUSION COMPANY OSKAR WALDRON PROVID FEED AND ALL SUPPLIES BOLUS PRIOR TO ADMISSION [facility] FOR ENTERAL FEEDS SUE GAS SYSTEM OPERATOR [phone] FORMULA AND IV POLE AND FORMULA TO BE DELIVERED TO HOME BEFORE DISCHARGE TRANSORTATION ACTION [facility] NURSE WENDY [phone] ET 30[address] [facility] [place] [employer]U [phone] TREATING ENGINEER TO CONTINUE TO FOLLOW CALLED TO KYRIE GABRIEL AND LEFT MESSAGE THAT PATIENT WOULD NOT BE DISCHARGE D UNTIL MONDAY , WITH MY NAME AND CALL BACK NUMBER MEDICARE IMMM WAS UPDATED WITH HER BY PHONE ON 12/02/21 Original Note: NURSE MANAGEMENT TECHNICIAN NOTE ELECTRONIC MEDICAL RECORD REVIEWED ALONG WITH CASE DISCUSSED WITH HOSPITALIST VIA TIGER TEXT , 1/ HE WILL COMPLETE THE ENTERAL FEEDING ORDERS AND THEY WILL THEN BE FAXED TO [facility] FOR CONTINUOS FEEDS . THEY WILL THEN HAVE THE ENTERAL FEEDING AND PUMP AND ALL RELATED SUPPLIES TO BE DELIVERED TO [facility] TOMORROW BEFORE 1PM 2. CALLED TO [facility] THEY CAN NOT TAKE THE PATIENT BACK TODAY SEC TO NOT BEING ABLE TO HAVE TEACHING FOR THE CONTINOUS FEEDING PUMP UNTIL TOMORROW AT 1PM 3 T/C TO [facility]ENDY [facility] SHE ALSO CAN NOT COME FOR TEACHING UNTIL TOMORROW AT 1PM SE TO INVOLVEMENT WITH STATE SURVEY OF THE GROUP HOMES TODAY 4 KYRIE DREWan SHE IS IN AGREEMENT WITH PATIENT RETUNRG BACK TO THE [facility] WITH CONTINOUS ENTERAL FEEDINGS REVIEWED BY PHONE THE MEDICARE IMMM AND APPEALS PROCESS AND AT HER REQUEST LEFT AT [facility] TRANSPORTATION PLANED D/C [id number] [facility] TO FAX US THE PAPERWORK THAT THEY NEEDS TO BE COMPLETED TO RETUN BACK TO [facility] PER KANU
[2021-12-02] MEDS: Docusate Sodium 100 MG/10 ML LIQUID G-TUBE ×2 (09:30→21:24)
[2021-12-02] MEDS: Cyanocobalamin (Vitamin B-12) 1,000 MCG TABLET 1000 MCG G-TUBE (09:30)
[2021-12-02] MEDS: Folic Acid 1 MG TABLET G-TUBE (09:31)
[2021-12-02] MEDS: FLUoxetine HCl 10 MG CAPSULE G-TUBE (09:31)
[2021-12-02] MEDS: FLUoxetine HCl 20 MG CAPSULE G-TUBE (09:31)
[2021-12-02] MEDS: Enoxaparin Sodium 40 MG/0.4 ML SYRINGE SUBCUT (09:33)
--- NOTE | 2021-12-02 12:27 | HO.PM.IMPN ---
Subjective Subjective Date of Service: 12/02/21 Interval History: per staff; no acute issues overnight. Remains tolerant of tube feeds(cont) Review of Systems unable to obtain secondary to the dementia Physical Exam Vital Signs: Vital Signs: Last Vital Signs Temp 97.3 F 12/02/21 11:23 Pulse 69 12/02/21 11:23 Resp 16 12/02/21 11:23 BP 109/53 L 12/02/21 11:23 Pulse Ox 96 12/02/21 11:23 Oxygen Flow Rate 6 11/26/21 22:33 BMI result Body Mass Index 20.0 Const: Other: no acute distress Resp: Other: scant coarse rhonchi throughout; coarse crackles right base Cardio: Other: no S4; positive S1-S2; S3 murmurs or gallops GI: Other: soft nontender nondistended positive bowel sounds. G-tube site clean dry and intact Extrem: Other: no edema bilaterally Objective Data Active Medications Acetaminophen (Acetaminophen 325 Mg Tablet) 650 mg G-TUBE Q6H PRN PRN Reason: Pain, Mild (Pain Scale 1-3) Last Admin: 11/30/21 08:09 Dose: 650 mg Documented by: LAURYN Atorvastatin Calcium (Atorvastatin Calcium 10 Mg Tablet) 10 mg G-TUBE BEDTIME [facility] Last Admin: 12/01/21 19:45 Dose: 10 mg Documented by: NENITA Clonazepam (Clonazepam 1 Mg Tablet) 2 mg G-TUBE BEDTIME [facility] Last Admin: 12/01/21 19:45 Dose: 2 mg Documented by: NENITA Clotrimazole (Clotrimazole 1 % Cream 15 Gm Tube) 1 appl TOPICAL BID [facility]; Protocol Last Admin: 12/02/21 07:52 Dose: 1 appl Documented by: RAFA Cyanocobalamin (Cyanocobalamin (Vitamin B-12) 1,000 Mcg Tablet) 1,000 mcg G-TUBE DAILY [facility] Last Admin: 12/02/21 09:30 Dose: 1,000 mcg Documented by: ROSALBA Docusate Sodium (Docusate Sodium 100 Mg/10 Ml Liquid) 100 mg G-TUBE BID [facility] Last Admin: 12/02/21 09:30 Dose: 100 mg Documented by: ROSALAB Enoxaparin Sodium (Enoxaparin Sodium 40 Mg/0.4 Ml Syringe) 40 mg SUBCUT Q24H [facility] Last Admin: 12/02/21 09:33 Dose: 40 mg Documented by: ROSALBA Fluoxetine HCl (Fluoxetine Hcl 10 Mg Capsule) 10 mg G-TUBE DAILY [facility] Last Admin: 12/02/21 09:31 Dose: 10 mg Documented by: ROSALBA Fluoxetine HCl (Fluoxetine Hcl 20 Mg Capsule) 20 mg G-TUBE DAILY [facility] Last Admin: 12/02/21 09:31 Dose: 20 mg Documented by: ROSALBA Folic Acid (Folic Acid 1 Mg Tablet) 1 mg G-TUBE DAILY [facility] Last Admin: 12/02/21 09:31 Dose: 1 mg Documented by: ROSALBA Piperacillin Sod/Tazobactam (Sod 4.5 gm/ Sodium Chloride) 100 mls @ 100 mls/hr IV Q6H [facility] Last Infusion: 12/02/21 08:48 Dose: 0 mls/hr Documented by: RAFA Melatonin (Melatonin 3 Mg Tablet) 3 mg G-TUBE BEDTIME [facility] Last Admin: 12/01/21 19:45 Dose: 3 mg Documented by: NENITA Ondansetron HCl (Ondansetron Hcl 4 Mg/2 Ml Vial) 4 mg IVPUSH Q8H PRN PRN Reason: Nausea and Vomiting Senna (Senna [place] Extract Oral Syrup 15 Ml Syrup) 15 ml G-TUBE DAILY [facility] Last Admin: 12/02/21 09:31 Dose: 15 ml Documented by: ROSALBA Sodium Chloride (0.9 % Sodium Chloride Flush 3 Ml Syringe) 3 ml IVFLUSH QSHIFT [facility] Last Admin: 12/02/21 07:52 Dose: 3 ml Documented by: RAFA Trazodone HCl (Trazodone Hcl 50 Mg Tablet) 50 mg G-TUBE BEDTIME [facility] Last Admin: 12/01/21 19:45 Dose: 50 mg Documented by: NENITA Triamcinolone Acetonide (Triamcinolone Acet 0.1 % Cream 15 Gm Tube) 1 appl TOPICAL BID [facility]; Protocol Last Admin: 12/02/21 07:52 Dose: 1 appl Documented by: RAFA Valproic Acid (Valproic Acid (As Sodium Salt) 250 Mg/5 Ml Solution) 1,500 mg G-TUBE DAILY [facility] Last Admin: 12/02/21 09:32 Dose: 1,500 mg Documented by: ROSALBA Valproic Acid (Valproic Acid (As Sodium Salt) 250 Mg/5 Ml Solution) 1,750 mg G-TUBE BEDTIME [facility] Last Admin: 12/01/21 19:49 Dose: 1,750 mg Documented by: NENITA Labs CBC & Chem 7: 12/02/21 06:31 12/02/21 06:31 Labs: Laboratory Results - last 24 hr 12/02/21 12/02/21 06:31 06:31 MCV 106.0 H MCH 34.6 H MCHC 32.6 RDW 12.8 Plt Count 183 MPV 9.8 Immature Gran % (Auto) 1.2 H Neut % (Auto) 43.8 L Lymph % (Auto) 41.6 H [place] % (Auto) 12.6 H Eos % (Auto) 0.6 Baso % (Auto) 0.2 Lymph # (Auto) 2.1 [place] # (Auto) 0.6 Eos # (Auto) 0.0 Baso # (Auto) 0.0 Abs Immat Gran (auto) 0.06 H Absolute Neuts (auto) 2.2 Absolute Nucleated RBC 0.000 Nucleated RBC % (auto) 0.0 Anion Gap 9 L Estim Creat Clear Calc 96.5 Estimated GFR > 60 Fasting Glucose 86 Calcium 8.6 Total Bilirubin 0.4 AST 11 ALT 8 Alkaline Phosphatase 59 Total Protein 4.5 L Albumin 2.3 L Assessment and Plan (1) Aspiration pneumonia: Status: Acute (2) Bipolar 2 disorder: Status: Acute Plan 51 year-old woman with developmental delay, bipolar disorder, and tardive dyskinesia who resides at a fdc and is wheelchair- and bed-bound and G-tube dependent, with history of recurrent aspiration pneumonia presenting with respiratory distress and admitted with hypoxia and severe sepsis due to pneumonia 1. Aspiration Pneumonia - IV pip/sivakumar(5)...augmentin on D/C - change bolus to continuous feeds; Spoke with PCP/guardian. Both agree with continuous feedings - wean O2 as tolerated 2. Hyperlipidemia - atorvastatin 3.Bipolar disorder - divalproex, fluoxetine, trazodone 4.Development elay -continuous tube feeds as per Sales Administrator -fdc working on accepting continuous feed LMWH.? DNR/DNI will need at least 1 more midnight as facility attempts to adjust for continuous feeds Quality Stroke Does the patient have a stroke diagnosis?: No VTE Prior VTE?: Yes VTE Risk Level:: Medical - moderate - high VTE Device Contraindication: N/A - Device Ordered VTE Drug Contraindication: N/A - Med Ordered
[2021-12-02] MEDS: traZODone HCL 50 MG TABLET G-TUBE (21:24)
[2021-12-02] MEDS: Melatonin 3 MG TABLET G-TUBE (21:24)
[2021-12-02] MEDS: Atorvastatin Calcium 10 MG TABLET G-TUBE (21:24)
[2021-12-03] MEDS: Piperacillin Sodium/Tazobactam 4.5 GM in 0.9 % Sodium Chloride 100 ML IV ×4 (02:19→20:33)
[2021-12-03 03:25] VITALS: BP 97/81; PULSE 71; RESP 14; TEMP 36.7; O2SAT 97
[2021-12-03 06:01] LABS: MANUAL DIFF FLAG NO
[2021-12-03 06:08] LABS: Basophils Percent Auto 0.4 % (0-2); Eosinophils Absolute Auto 0.1 X10*3/uL (0.0-0.4); Eosinophils Percent Auto 0.9 % (0-4); Hematocrit 38.3 % (37.0-47.0); Hemoglobin 12.5 g/dl (12.0-16.0); Imm Gran Abs Auto 0.12 X10*3/uL (0.00-0.03); Imm Gran Pct Auto 2.2 % (0.0-0.4); Lymphocytes Absolute Auto 2.3 X10*3/uL (1.2-4.9); Lymphocytes Percent Auto 41.4 % (20-40); Mean Corpuscular HGB Conc 32.6 g/dl (31.0-35.0); Mean Corpuscular Hemoglobin 34.5 pg (27.0-33.0); Mean Corpuscular Volume 105.8 fL (80.0-98.0); Monocytes Absolute Auto 0.6 X10*3/uL (0.1-1.2); Monocytes Percent Auto 11.8 % (2-11); Neutrophils Absolute Auto 2.4 x10*3/uL (2.0-8.3); Neutrophils Percent Auto 43.3 % (45-73); Platelet Count 214 X10*3/uL (160-400); Red Blood Count 3.62 X10*6/uL (4.20-5.50); Red Cell Distribution Width 12.7 % (11.0-16.0); White Blood Count 5.4 X10*3/uL (4.8-10.8)
[2021-12-03 06:28] LABS: Alanine Aminotransferase 10 U/L (0-31); Albumin Level 2.6 g/dL (3.5-5.0); Alkaline Phosphatase 73 U/L (39-117); Anion Gap 14 (12-20); Aspartate Amino Transferase 13 U/L (5-31); Bilirubin Total 0.5 mg/dL (0.0-1.0); Blood Urea Nitrogen 23 mg/dL (9-16); Calcium 8.8 mg/dL (8.4-10.2); Carbon Dioxide 31 mmol/L (22-29); Chloride 101 mmol/L (96-108); Creatinine Clr Calc Pharmacy 81.3; Estimated Glomerular Filt Rate > 60; Glucose Fasting 87 mg/dL (60-99); Potassium 5.5 mmol/L (3.3-5.1); Sodium 140 mmol/L (135-145)
[2021-12-03 07:07] VITALS: BP 95/56; PULSE 66; RESP 15; TEMP 36.1; O2SAT 99
[2021-12-03] MEDS: Folic Acid 1 MG TABLET G-TUBE (08:57)
[2021-12-03] MEDS: FLUoxetine HCl 10 MG CAPSULE G-TUBE (08:57)
[2021-12-03] MEDS: FLUoxetine HCl 20 MG CAPSULE G-TUBE (08:57)
[2021-12-03] MEDS: Cyanocobalamin (Vitamin B-12) 1,000 MCG TABLET 1000 MCG G-TUBE (08:57)
[2021-12-03] MEDS: Enoxaparin Sodium 40 MG/0.4 ML SYRINGE SUBCUT (09:36)
[2021-12-03 11:26] VITALS: BP 101/60; PULSE 66; RESP 15; TEMP 36; O2SAT 99
--- NOTE | 2021-12-03 11:40 | MHC.CM.PN ---
nurse foster care case manager note electronic medical record reviewed case discussed with staff nurse and [facility]. discussed barriers with THEM 1. PATIENT IS FROM THE CUSTODIAL, THE STATE IS REVIEWING GENERAL AUDIT WELL THE CUSTODIAL [facility] PER WENDY RN FROM THERE CONFIRMED UNDER THE MAP PROGRAM PATIENT CAN NOT RETURN UNLESS ALL THE SAME AT CUSTODIAL IS CERTIFIED WITH THE CONTINUOUS FEEDING PUMP. THIS WILL NOT BE ABLE TO HAPPEN UNTIL MONDAY. 2 THE CIVIL MANAGER AND RN FROM [facility] SHAWNA NGUYEN WILL BE HERE AT 1PM AT THE HOSPITAL TO MEET WITH TRICAI [facility]JIV[facility] [place] [facility] TO RECEIVE TEACHING ON THIS AND THE TEACH THE CUSTODIAL STAFF 3/ WENDY AND CIVIL MANAGER REPORTED TO ME THAT THE IV POLE AND PUMP IS THERE BUT NO FORMULA CALLED TO SUE AT [place] FOR ENTRAL FEEDS FOUND OUT PHARMACY IS [facility]/ [facility] INFORMED HOSPITALIST
--- NOTE | 2021-12-03 11:50 | P.PNIM_ITS ---
Subjective Subjective Date of Service: 12/03/21 Interval History: per staff; no acute issues overnight. Remains tolerant of tube feeds(cont) Review of Systems unable to obtain secondary to the dementia Physical Exam Vital Signs: Vital Signs: Last Vital Signs Temp 96.8 F 12/03/21 11:26 Pulse 66 12/03/21 11:26 Resp 15 12/03/21 11:26 BP 101/60 12/03/21 11:26 Pulse Ox 99 12/03/21 11:26 Oxygen Flow Rate 6 11/26/21 22:33 BMI result Body Mass Index 20.0 Const: Other: no acute distress Resp: Other: scant coarse rhonchi throughout; coarse crackles right base Cardio: Other: no S4; positive S1-S2; S3 murmurs or gallops GI: Other: soft nontender nondistended positive bowel sounds. G-tube site clean dry and intact Extrem: Other: no edema bilaterally Objective Data Active Medications Acetaminophen (Acetaminophen 325 Mg Tablet) 650 mg G-TUBE Q6H PRN PRN Reason: Pain, Mild (Pain Scale 1-3) Last Admin: 11/30/21 08:09 Dose: 650 mg Documented by: LAURYN Atorvastatin Calcium (Atorvastatin Calcium 10 Mg Tablet) 10 mg G-TUBE BEDTIME [facility] Last Admin: 12/02/21 21:24 Dose: 10 mg Documented by: SHANTEL Clotrimazole (Clotrimazole 1 % Cream 15 Gm Tube) 1 appl TOPICAL BID [facility]; Protocol Last Admin: 12/02/21 21:33 Dose: 1 appl Documented by: SHANTEL Cyanocobalamin (Cyanocobalamin (Vitamin B-12) 1,000 Mcg Tablet) 1,000 mcg G- TUBE DAILY [facility] Last Admin: 12/03/21 08:57 Dose: 1,000 mcg Documented by: MALIKA Docusate Sodium (Docusate Sodium 100 Mg/10 Ml Liquid) 100 mg G-TUBE BID [facility] Last Admin: 12/03/21 09:44 Dose: Not Given Documented by: MALIKA Non-Admin Reason: diarrhea Enoxaparin Sodium (Enoxaparin Sodium 40 Mg/0.4 Ml Syringe) 40 mg SUBCUT Q24H [facility] Last Admin: 12/03/21 09:36 Dose: 40 mg Documented by: MALIKA Fluoxetine HCl (Fluoxetine Hcl 10 Mg Capsule) 10 mg G-TUBE DAILY [facility] Last Admin: 12/03/21 08:57 Dose: 10 mg Documented by: MALIKA Fluoxetine HCl (Fluoxetine Hcl 20 Mg Capsule) 20 mg G-TUBE DAILY [facility] Last Admin: 12/03/21 08:57 Dose: 20 mg Documented by: MALIKA Folic Acid (Folic Acid 1 Mg Tablet) 1 mg G-TUBE DAILY [facility] Last Admin: 12/03/21 08:57 Dose: 1 mg Documented by: MALIKA Piperacillin Sod/Tazobactam (Sod 4.5 gm/ Sodium Chloride) 100 mls @ 100 mls/hr IV Q6H [facility] Last Infusion: 12/03/21 11:21 Dose: 0 mls/hr Documented by: MALIKA Melatonin (Melatonin 3 Mg Tablet) 3 mg G-TUBE BEDTIME [facility] Last Admin: 12/02/21 21:24 Dose: 3 mg Documented by: SHANTEL Ondansetron HCl (Ondansetron Hcl 4 Mg/2 Ml Vial) 4 mg IVPUSH Q8H PRN PRN Reason: Nausea and Vomiting Senna (Senna Strang Extract Oral Syrup 15 Ml Syrup) 15 ml G-TUBE DAILY [facility] Last Admin: 12/03/21 09:44 Dose: Not Given Documented by: MALIKA Non-Admin Reason: diarrhea Sodium Chloride (0.9 % Sodium Chloride Flush 3 Ml Syringe) 3 ml IVFLUSH QSHIFT [facility] Last Admin: 12/02/21 22:30 Dose: 3 ml Documented by: SHANTEL Trazodone HCl (Trazodone Hcl 50 Mg Tablet) 50 mg G-TUBE BEDTIME [facility] Last Admin: 12/02/21 21:24 Dose: 50 mg Documented by: SHANTEL Triamcinolone Acetonide (Triamcinolone Acet 0.1 % Cream 15 Gm Tube) 1 appl TOPICAL BID [facility]; Protocol Last Admin: 12/02/21 21:34 Dose: 1 appl Documented by: SHANTEL Valproic Acid (Valproic Acid (As Sodium Salt) 250 Mg/5 Ml Solution) 1,500 mg G- TUBE DAILY [facility] Last Admin: 12/03/21 09:03 Dose: 1,500 mg Documented by: MALIKA Valproic Acid (Valproic Acid (As Sodium Salt) 250 Mg/5 Ml Solution) 1,750 mg G- TUBE BEDTIME [facility] Last Admin: 12/02/21 21:23 Dose: 1,750 mg Documented by: SHANTEL Labs CBC & Chem 7: 12/03/21 05:32 12/03/21 05:32 Labs: Laboratory Results - last 24 hr 12/03/21 12/03/21 05:32 05:32 MCV 105.8 H MCH 34.5 H MCHC 32.6 RDW 12.7 Plt Count 214 MPV 10.0 Immature Gran % (Auto) 2.2 H Neut % (Auto) 43.3 L Lymph % (Auto) 41.4 H Aurora % (Auto) 11.8 H Eos % (Auto) 0.9 Baso % (Auto) 0.4 Lymph # (Auto) 2.3 Aurora # (Auto) 0.6 Eos # (Auto) 0.1 Baso # (Auto) 0.0 Abs Immat Gran (auto) 0.12 H Absolute Neuts (auto) 2.4 Absolute Nucleated RBC 0.000 Nucleated RBC % (auto) 0.0 Anion Gap 14 Estim Creat Clear Calc 81.3 Estimated GFR > 60 Fasting Glucose 87 Calcium 8.8 Total Bilirubin 0.5 AST 13 ALT 10 Alkaline Phosphatase 73 D Total Protein 5.0 L Albumin 2.6 L Assessment and Plan (1) Aspiration pneumonia: Status: Acute (2) Bipolar 2 disorder: Status: Acute Plan 51 year-old woman with developmental delay, bipolar disorder, and tardive dyskinesia who resides [place] [facility] and is wheelchair- and bed-bound and G- tube dependent, with history of recurrent aspiration pneumonia presenting with respiratory distress and admitted with hypoxia and severe sepsis due to pneumonia 1. Aspiration Pneumonia - IV pip/sivakumar(6)...augmentin on D/C - change bolus to continuous feeds; Spoke with PCP/guardian. Both agree with continuous feedings - wean O2 as tolerated 2. Hyperlipidemia - atorvastatin 3.Bipolar disorder - divalproex, fluoxetine, trazodone 4.Development delay -continuous tube feeds as per Bathing Suit Maker [place] [facility] working [place] accepting continuous feed...qualifing staff LMWH.? DNR/DNI Quality Stroke Does the patient have a stroke diagnosis?: No VTE Prior VTE?: Yes VTE Risk Level:: Medical - moderate - high VTE Device Contraindication: N/A - Device Ordered VTE Drug Contraindication: N/A - Med Ordered
--- NOTE | 2021-12-03 13:49 | MHC.CLN ---
F/U CONTINUOUS TUBE FEEDING RUNNING AT MAX GOAL RATE PROMOTE AT 60 ML PER HOUR. PROVIDES 1440 KCAL (26.3 KCAL/KG); 90 G PROTEIN (1.64 G/KG). FLUSH 120 ML Q 8 HOURS. FORMULA PLUS FLUSH PROVIDES 1568 ML FLUID (28.6 ML/KG). HX ASPIRATION PNEUMONIA AND HAS INCREASED PROTEIN NEEDS WITH 3 STAGE II PRESSURE INJURIES (RIGHT BUTTOCK, COCCYX, RIGHT HEEL). TOLERATING CURRENT TUBE FEEDING. CONTINUE TO FOLLOW LABS, WOUNDS AND TUBE FEED TOLERANCE.
[2021-12-03] MEDS: Clotrimazole 1 % Cream 15 GM TUBE 1 APPL TOPICAL ×2 (15:02→20:18)
[2021-12-03] MEDS: Triamcinolone Acet 0.1 % Cream 15 GM TUBE 1 APPL TOPICAL ×2 (15:02→20:18)
[2021-12-03 16:00] VITALS: BP 106/71; PULSE 78; RESP 16; TEMP 37.2; O2SAT 99
[2021-12-03 19:53] VITALS: BP 121/60; PULSE 71; RESP 18; TEMP 36.5; O2SAT 99
[2021-12-03] MEDS: Docusate Sodium 100 MG/10 ML LIQUID G-TUBE (20:19)
[2021-12-03] MEDS: Atorvastatin Calcium 10 MG TABLET G-TUBE (20:19)
[2021-12-03] MEDS: traZODone HCL 50 MG TABLET G-TUBE (20:19)
[2021-12-03] MEDS: 0.9 % Sodium Chloride Flush 3 ML SYRINGE IVFLUSH (20:19)
[2021-12-03] MEDS: Melatonin 3 MG TABLET G-TUBE (20:19)
[2021-12-03 23:40] VITALS: BP 96/53; PULSE 63; RESP 14; TEMP 36.4; O2SAT 95
[2021-12-04] MEDS: Piperacillin Sodium/Tazobactam 4.5 GM in 0.9 % Sodium Chloride 100 ML IV ×4 (03:24→21:30)
[2021-12-04 03:51] VITALS: BP 98/50; PULSE 60; RESP 14; TEMP 36.3; O2SAT 100
[2021-12-04 06:45] VITALS: BP 115/59; PULSE 55; RESP 19; TEMP 35.5; O2SAT 96
[2021-12-04] MEDS: 0.9 % Sodium Chloride Flush 3 ML SYRINGE IVFLUSH ×3 (08:23→21:32)
--- NOTE | 2021-12-04 08:55 | P.PNIM_ITS ---
Subjective Subjective Date of Service: 12/04/21 Interval History: per staff; no acute issues overnight. Remains tolerant of tube feeds(cont) Review of Systems unable to obtain secondary to the dementia Physical Exam Vital Signs: Vital Signs: Last Vital Signs Temp 96 F L 12/04/21 06:45 Pulse 55 12/04/21 06:45 Resp 19 12/04/21 06:45 BP 115/59 L 12/04/21 06:45 Pulse Ox 96 12/04/21 06:45 Oxygen Flow Rate 6 11/26/21 22:33 BMI result Body Mass Index 20.0 Const: Other: no acute distress Resp: Other: scant coarse rhonchi throughout; coarse crackles right base Cardio: Other: no S4; positive S1-S2; S3 murmurs or gallops GI: Other: soft nontender nondistended positive bowel sounds. G-tube site clean dry and intact Extrem: Other: no edema bilaterally Objective Data Active Medications Acetaminophen (Acetaminophen 325 Mg Tablet) 650 mg G-TUBE Q6H PRN PRN Reason: Pain, Mild (Pain Scale 1-3) Last Admin: 11/30/21 08:09 Dose: 650 mg Documented by: LAURYN Atorvastatin Calcium (Atorvastatin Calcium 10 Mg Tablet) 10 mg G-TUBE BEDTIME [facility] Last Admin: 12/03/21 20:19 Dose: 10 mg Documented by: AMISH Clotrimazole (Clotrimazole 1 % Cream 15 Gm Tube) 1 appl TOPICAL BID [facility]; Protocol Last Admin: 12/03/21 20:18 Dose: 1 appl Documented by: AMISH Cyanocobalamin (Cyanocobalamin (Vitamin B-12) 1,000 Mcg Tablet) 1,000 mcg G- TUBE DAILY [facility] Last Admin: 12/03/21 08:57 Dose: 1,000 mcg Documented by: MALIKA Docusate Sodium (Docusate Sodium 100 Mg/10 Ml Liquid) 100 mg G-TUBE BID [facility] Last Admin: 12/03/21 20:19 Dose: 100 mg Documented by: AMISH Enoxaparin Sodium (Enoxaparin Sodium 40 Mg/0.4 Ml Syringe) 40 mg SUBCUT Q24H [facility] Last Admin: 12/03/21 09:36 Dose: 40 mg Documented by: MALIKA Fluoxetine HCl (Fluoxetine Hcl 10 Mg Capsule) 10 mg G-TUBE DAILY [facility] Last Admin: 12/03/21 08:57 Dose: 10 mg Documented by: MALIKA Fluoxetine HCl (Fluoxetine Hcl 20 Mg Capsule) 20 mg G-TUBE DAILY [facility] Last Admin: 12/03/21 08:57 Dose: 20 mg Documented by: MALIKA Folic Acid (Folic Acid 1 Mg Tablet) 1 mg G-TUBE DAILY [facility] Last Admin: 12/03/21 08:57 Dose: 1 mg Documented by: MALIKA Piperacillin Sod/Tazobactam (Sod 4.5 gm/ Sodium Chloride) 100 mls @ 100 mls/hr IV Q6H [facility] Last Admin: 12/04/21 08:22 Dose: 100 mls/hr Documented by: ZAFAR Melatonin (Melatonin 3 Mg Tablet) 3 mg G-TUBE BEDTIME [facility] Last Admin: 12/03/21 20:19 Dose: 3 mg Documented by: AMISH Ondansetron HCl (Ondansetron Hcl 4 Mg/2 Ml Vial) 4 mg IVPUSH Q8H PRN PRN Reason: Nausea and Vomiting Senna (Senna Tangent Extract Oral Syrup 15 Ml Syrup) 15 ml G-TUBE DAILY [facility] Last Admin: 12/03/21 09:44 Dose: Not Given Documented by: MALIKA Non-Admin Reason: diarrhea Sodium Chloride (0.9 % Sodium Chloride Flush 3 Ml Syringe) 3 ml IVFLUSH QSHIFT [facility] Last Admin: 12/04/21 08:23 Dose: 3 ml Documented by: ZAFAR Trazodone HCl (Trazodone Hcl 50 Mg Tablet) 50 mg G-TUBE BEDTIME [facility] Last Admin: 12/03/21 20:19 Dose: 50 mg Documented by: AMISH Triamcinolone Acetonide (Triamcinolone Acet 0.1 % Cream 15 Gm Tube) 1 appl TOPICAL BID [facility]; Protocol Last Admin: 12/03/21 20:18 Dose: 1 appl Documented by: AMISH Valproic Acid (Valproic Acid (As Sodium Salt) 250 Mg/5 Ml Solution) 1,500 mg G- TUBE DAILY [facility] Last Admin: 12/03/21 09:03 Dose: 1,500 mg Documented by: MALIKA Valproic Acid (Valproic Acid (As Sodium Salt) 250 Mg/5 Ml Solution) 1,750 mg G- TUBE BEDTIME [facility] Last Admin: 12/03/21 20:18 Dose: 1,750 mg Documented by: AMISH Labs CBC & Chem 7: 12/03/21 05:32 12/03/21 05:32 Assessment and Plan (1) Aspiration pneumonia: Status: Acute (2) Bipolar 2 disorder: Status: Acute Plan 51 year-old woman with developmental delay, bipolar disorder, and tardive dyskinesia who resides at a [facility] and is wheelchair- and bed-bound and G- tube dependent, with history of recurrent aspiration pneumonia presenting with respiratory distress and admitted with hypoxia and severe sepsis due to pneumonia 1. Aspiration Pneumonia - IV pip/sivakumar(7)...augmentin on D/C -tolerating bolus feeds...no signs/symptoms aspiration.HOB 30degrees - wean O2 as tolerated 2. Hyperlipidemia - atorvastatin 3.Bipolar disorder - divalproex, fluoxetine, trazodone 4.Development delay -continuous tube feeds as per Material Planner -[facility] working on accepting continuous feed...qualifing staff LMWH.? DNR/DNI Awaiting return to [facility] Quality Stroke Does the patient have a stroke diagnosis?: No VTE Prior VTE?: Yes VTE Risk Level:: Medical - moderate - high VTE Device Contraindication: N/A - Device Ordered VTE Drug Contraindication: N/A - Med Ordered
[2021-12-04] MEDS: FLUoxetine HCl 20 MG CAPSULE G-TUBE (09:12)
[2021-12-04] MEDS: Folic Acid 1 MG TABLET G-TUBE (09:12)
[2021-12-04] MEDS: FLUoxetine HCl 10 MG CAPSULE G-TUBE (09:12)
[2021-12-04] MEDS: Cyanocobalamin (Vitamin B-12) 1,000 MCG TABLET 1000 MCG G-TUBE (09:12)
[2021-12-04] MEDS: Enoxaparin Sodium 40 MG/0.4 ML SYRINGE SUBCUT (09:12)
[2021-12-04] MEDS: Acetaminophen 325 MG TABLET 650 MG G-TUBE (09:12)
[2021-12-04] MEDS: Clotrimazole 1 % Cream 15 GM TUBE 1 APPL TOPICAL ×2 (09:13→21:32)
[2021-12-04] MEDS: Docusate Sodium 100 MG/10 ML LIQUID G-TUBE ×2 (09:13→21:32)
[2021-12-04] MEDS: Triamcinolone Acet 0.1 % Cream 15 GM TUBE 1 APPL TOPICAL ×2 (09:13→21:31)
[2021-12-04 10:59] VITALS: BP 110/58; PULSE 73; RESP 16; TEMP 36; O2SAT 94
[2021-12-04 14:56] VITALS: BP 95/48; PULSE 65; RESP 18; TEMP 36.5; O2SAT 93
[2021-12-04 19:47] VITALS: BP 98/52; PULSE 64; RESP 18; TEMP 36.8; O2SAT 96
[2021-12-04] MEDS: traZODone HCL 50 MG TABLET G-TUBE (21:31)
[2021-12-04] MEDS: Atorvastatin Calcium 10 MG TABLET G-TUBE (21:31)
[2021-12-04] MEDS: Melatonin 3 MG TABLET G-TUBE (21:31)
[2021-12-05] VITALS (7 sets, daily range): BP systolic 101–155; BP diastolic 58–108; PULSE 64–73; RESP 14–18; TEMP 36–37.1; O2SAT 92–100
[2021-12-05] MEDS: Piperacillin Sodium/Tazobactam 4.5 GM in 0.9 % Sodium Chloride 100 ML IV (03:13)
--- NOTE | 2021-12-05 08:37 | HO.PM.IMPN ---
Subjective Subjective Date of Service: 12/05/21 Interval History: per staff; no acute issues overnight. Remains tolerant of tube feeds(cont) Review of Systems unable to obtain secondary to the dementia Physical Exam Vital Signs: Vital Signs: Last Vital Signs Temp 96.8 F 12/05/21 06:48 Pulse 68 12/05/21 06:48 Resp 16 12/05/21 06:48 BP 118/67 12/05/21 06:48 Pulse Ox 96 12/05/21 06:48 Oxygen Flow Rate 6 11/26/21 22:33 BMI result Body Mass Index 20.0 Const: Other: no acute distress Resp: Other: scant coarse rhonchi throughout; coarse crackles right base Cardio: Other: no S4; positive S1-S2; S3 murmurs or gallops GI: Other: soft nontender nondistended positive bowel sounds. G-tube site clean dry and intact Extrem: Other: no edema bilaterally Objective Data Active Medications Acetaminophen (Acetaminophen 325 Mg Tablet) 650 mg G-TUBE Q6H PRN PRN Reason: Pain, Mild (Pain Scale 1-3) Last Admin: 12/04/21 09:12 Dose: 650 mg Documented by: ZAFAR Amoxicillin/Clavulanate Potassium (Amoxicillin/Potassium Clav 2,000 Mg/50 Ml Bottle) 875 mg PO Q12H [facility] Atorvastatin Calcium (Atorvastatin Calcium 10 Mg Tablet) 10 mg G-TUBE BEDTIME [facility] Last Admin: 12/04/21 21:31 Dose: 10 mg Documented by: AMISH Clotrimazole (Clotrimazole 1 % Cream 15 Gm Tube) 1 appl TOPICAL BID [facility]; Protocol Last Admin: 12/04/21 21:32 Dose: 1 appl Documented by: AMISH Cyanocobalamin (Cyanocobalamin (Vitamin B-12) 1,000 Mcg Tablet) 1,000 mcg G-TUBE DAILY [facility] Last Admin: 12/04/21 09:12 Dose: 1,000 mcg Documented by: RIANNAEMA Docusate Sodium (Docusate Sodium 100 Mg/10 Ml Liquid) 100 mg G-TUBE BID [facility] Last Admin: 12/04/21 21:32 Dose: 100 mg Documented by: AMISH Enoxaparin Sodium (Enoxaparin Sodium 40 Mg/0.4 Ml Syringe) 40 mg SUBCUT Q24H [facility] Last Admin: 12/04/21 09:12 Dose: 40 mg Documented by: COTISAIAS Fluoxetine HCl (Fluoxetine Hcl 10 Mg Capsule) 10 mg G-TUBE DAILY [facility] Last Admin: 12/04/21 09:12 Dose: 10 mg Documented by: COTEMA Fluoxetine HCl (Fluoxetine Hcl 20 Mg Capsule) 20 mg G-TUBE DAILY [facility] Last Admin: 12/04/21 09:12 Dose: 20 mg Documented by: RIANNAEMA Folic Acid (Folic Acid 1 Mg Tablet) 1 mg G-TUBE DAILY [facility] Last Admin: 12/04/21 09:12 Dose: 1 mg Documented by: ZAFAR Melatonin (Melatonin 3 Mg Tablet) 3 mg G-TUBE BEDTIME [facility] Last Admin: 12/04/21 21:31 Dose: 3 mg Documented by: AMISH Ondansetron HCl (Ondansetron Hcl 4 Mg/2 Ml Vial) 4 mg IVPUSH Q8H PRN PRN Reason: Nausea and Vomiting Senna (Senna Roebling Extract Oral Syrup 15 Ml Syrup) 15 ml G-TUBE DAILY [facility] Last Admin: 12/04/21 09:12 Dose: 15 ml Documented by: ZAFAR Sodium Chloride (0.9 % Sodium Chloride Flush 3 Ml Syringe) 3 ml IVFLUSH QSHIFT [facility] Last Admin: 12/04/21 21:32 Dose: 3 ml Documented by: AMISH Trazodone HCl (Trazodone Hcl 50 Mg Tablet) 50 mg G-TUBE BEDTIME [facility] Last Admin: 12/04/21 21:31 Dose: 50 mg Documented by: AMISH Triamcinolone Acetonide (Triamcinolone Acet 0.1 % Cream 15 Gm Tube) 1 appl TOPICAL BID [facility]; Protocol Last Admin: 12/04/21 21:31 Dose: 1 appl Documented by: AMISH Valproic Acid (Valproic Acid (As Sodium Salt) 250 Mg/5 Ml Solution) 1,500 mg G-TUBE DAILY [facility] Last Admin: 12/04/21 09:12 Dose: 1,500 mg Documented by: ZAFAR Valproic Acid (Valproic Acid (As Sodium Salt) 250 Mg/5 Ml Solution) 1,750 mg G-TUBE BEDTIME [facility] Last Admin: 12/04/21 21:31 Dose: 1,750 mg Documented by: AMISH Labs CBC & Chem 7: 12/03/21 05:32 12/03/21 05:32 Assessment and Plan (1) Aspiration pneumonia: Status: Acute (2) Bipolar 2 disorder: Status: Acute Plan 51 year-old woman with developmental delay, bipolar disorder, and tardive dyskinesia who resides at a [facility] and is wheelchair- and bed-bound and G-tube dependent, with history of recurrent aspiration pneumonia presenting with respiratory distress and admitted with hypoxia and severe sepsis due to pneumonia 1. Aspiration Pneumonia - switch to Augmentin via GTube -tolerating bolus feeds...no signs/symptoms aspiration.HOB 30degrees - wean O2 as tolerated 2. Hyperlipidemia - atorvastatin 3.Bipolar disorder - divalproex, fluoxetine, trazodone 4.Development delay -continuous tube feeds as per Nurses' Registry Director -[facility] working [facility] continuous feed...qualifing staff LMWH.? DNR/DNI Awaiting return to [facility] Quality Stroke Does the patient have a stroke diagnosis?: No VTE Prior VTE?: Yes VTE Risk Level:: Medical - moderate - high VTE Device Contraindication: N/A - Device Ordered VTE Drug Contraindication: N/A - Med Ordered
[2021-12-05] MEDS: 0.9 % Sodium Chloride Flush 3 ML SYRINGE IVFLUSH ×3 (09:21→19:43)
[2021-12-05] MEDS: Docusate Sodium 100 MG/10 ML LIQUID G-TUBE ×2 (09:25→19:42)
[2021-12-05] MEDS: Cyanocobalamin (Vitamin B-12) 1,000 MCG TABLET 1000 MCG G-TUBE (09:26)
[2021-12-05] MEDS: FLUoxetine HCl 20 MG CAPSULE G-TUBE (09:26)
[2021-12-05] MEDS: Triamcinolone Acet 0.1 % Cream 15 GM TUBE 1 APPL TOPICAL ×2 (09:26→19:43)
[2021-12-05] MEDS: Enoxaparin Sodium 40 MG/0.4 ML SYRINGE SUBCUT (09:26)
[2021-12-05] MEDS: Clotrimazole 1 % Cream 15 GM TUBE 1 APPL TOPICAL ×2 (09:26→19:42)
[2021-12-05] MEDS: FLUoxetine HCl 10 MG CAPSULE G-TUBE (09:26)
[2021-12-05] MEDS: Folic Acid 1 MG TABLET G-TUBE (09:26)
[2021-12-05] MEDS: Acetaminophen 325 MG TABLET 650 MG G-TUBE (09:26)
[2021-12-05] MEDS: traZODone HCL 50 MG TABLET G-TUBE (19:42)
[2021-12-05] MEDS: Atorvastatin Calcium 10 MG TABLET G-TUBE (19:42)
[2021-12-05] MEDS: Melatonin 3 MG TABLET G-TUBE (19:42)
[2021-12-06 03:27] VITALS: BP 117/76; PULSE 69; RESP 18; TEMP 36.1; O2SAT 99
[2021-12-06] MEDS: Docusate Sodium 100 MG/10 ML LIQUID G-TUBE (07:55)
[2021-12-06] MEDS: FLUoxetine HCl 10 MG CAPSULE G-TUBE (07:55)
[2021-12-06] MEDS: FLUoxetine HCl 20 MG CAPSULE G-TUBE (07:55)
[2021-12-06] MEDS: Cyanocobalamin (Vitamin B-12) 1,000 MCG TABLET 1000 MCG G-TUBE (07:55)
[2021-12-06] MEDS: Folic Acid 1 MG TABLET G-TUBE (07:55)
[2021-12-06] MEDS: Triamcinolone Acet 0.1 % Cream 15 GM TUBE 1 APPL TOPICAL (07:56)
[2021-12-06] MEDS: 0.9 % Sodium Chloride Flush 3 ML SYRINGE IVFLUSH (07:56)
[2021-12-06 07:57] VITALS: BP 120/80; PULSE 78; RESP 18; TEMP 37.1; O2SAT 99
--- NOTE | 2021-12-06 09:09 | MHC.CM.PN ---
Addendum entered by Alysa Reagan 12/06/21 13:13: NURSE INSIDE METER TESTER DELMAR SPOKE WITH ZULAY ALAN [facility] MARIA G AND IRON MINER BLASTING AT THE RESIDENTIAL CONFIRMED TRASNSPORT TIME WITH THEM , T/C CALL TO KYRIE GABRIEL REVIEWED WITH HER MEDICARE IMM APPEALS PROCESS AND FINANCIAL RESPONSIBILITY IF NOT DISCHrge . she expoppressed being veyr happy with [place] [facility] [place] [facility] and thatked me for calling , at her request medicare immm left at bedside . [facility] tenders discharge papwer work sent to them via [employer] Original Note: NURSE INSIDE METER TESTER NOTE ELECTRONIC MEDICAL RECORD REVIEWED ALONG WITH CASE DISCUSSED WITH STAFF NURSE rylee hospitalist , patient is to be discharged home today back to her snf. formula , iv pole and pump have been delivered to the snf (the rehabilitation program coordinator , hereditary cancer program coordinator and [facility] nurse have been instructed on the continous tube feedings bu oskar napier on monday qfternoon here at [facility] [place],- they ahave then been teaching staff in the care ) t/c to snf spoke with zulay alan from the [facility] she will be coming into the hospitla today to check on wound care , see the sites and talk with the bedside nurse, she will also call me back with what time trasportation CAN BE SET UO\P AND CONFIRMA ALL TEACHING TO STAFF AT THE [facility] COMPLETED DISCHARGE PLAN RETURN BACK TO THE [facility], RESIDENTIAL NEW VNA REFERRAL TO [facility] FOR NURSING AND ASSESSMENT AND TEACHING FOLLOW UP FOR CONTINUOS GT FEEDS [phone] RESUMPTION OF HOME INFUSION [employer] [facility] CURRENTLY PROVIDe FEED AND ALL SUPPLES BOLUS PRIOR TO ADMISSION [place] [facility] INFUSION FOR ENTERAL FEEDS SUE WELL SURVEYING ENGINEER [phone] TRANSPORTATION ACTION BLS [facility] NURSE ZULAY [phone] ET [id number] RESIDENTIAL SAFETY GLASS INSTALLER KANU [phone] SHAKE OUT WORKER TO CONTINUE TO FOLLOW
[2021-12-06] MEDS: Enoxaparin Sodium 40 MG/0.4 ML SYRINGE SUBCUT (09:54)
[2021-12-06] MEDS: Clotrimazole 1 % Cream 15 GM TUBE 1 APPL TOPICAL (10:00)
[2021-12-06 12:00] VITALS: BP 127/59; PULSE 66; RESP 18; TEMP 36.9; O2SAT 98
--- NOTE | 2021-12-06 12:20 | MHC.CLN ---
F/U CONTINUOUS TUBE FEEDING RUNNING AT GOAL RATE: PROMOTE AT 60 ML PER HOUR. PROVIDES 1440 KCAL (26.3 KCAL/KG); 90 G PROTEIN (1.64 G/KG). FLUSH 120 ML WATER Q 8 HOURS. FORMULA PLUS FLUSH PROVIDES 1568 ML FREE WATER (28.6 ML/KG). HX ASPIRATION PNEUMONIA AND HAS INCREASED PROTEIN NEEDS WITH 3 STAGE II PRESSURE INJURIES (RIGHT BUTTOCK, COCCYX, RIGHT HEEL). TOLERATING CURRENT TUBE FEEDING/FLUSH. CONTINUE CURRENT ORDER. FOLLOW LABS, WOUNDS, AND TUBE FEED TOLERANCE.
--- NOTE | 2021-12-06 12:51 | PM.DS ---
DS: Providers Provider Date of Service: 12/06/21 Date of admission: 11/27/21 09:27 Date of discharge: 12/06/21 Primary care physician: Carlo Das MD DS: Diagnosis Discharge Diagnosis (1) Aspiration pneumonia: Status: Acute (2) Bipolar 2 disorder: Status: Acute DS: Summary Hospital Course Hospital Course: Ms Hood is a 51 year-old woman with developmental delay, bipolar disorder, and tardive dyskinesia who resides at a [facility] and is wheelchair- and bed-bound and G-tube dependent.? She has a history of recurrent aspiration pneumonia.? Her G-tube was just changed yesterday.? She was brought in to the [facility] 2 days ago for hypoxia, which resolved with suctioning and was attributed to a mucus plug; she had no evidence of pneumonia on CXR.? Covid-19 PRATIMA was negative.? She was brought back in yesterday due to worsening dyspnea and had bradycardia into the 20s with suctioning by EMS.? She was noted to be lethargic as well.? In the ED, she was noted to have severe sepsis by virtue of tachycardia, tachypnea, and leukocytosis with lactic acidosis and R lung base consolidation on CT scan. ? She was given IV piperacillin/tazobactam.? Lactate normalized with IV fluid resuscitation.? She was hypoxic, initially requiring 6L of supplemental O2 but now on 2L of O2.? She is more alert now and seems uncomfortable.? She is nonverbal at baseline and unable to give a ROS.? History is per discussion with the ED as well as her sister Yuko Woodward, who is her legal guardian. Hospital Course Admitted to the general medical floor. Started on Zosyn for likely aspiration pneumonia. Switched tube feeds from bolus to continuous; more risk for aspiration with bolus feeds. Subsequent blood cultures were negative and she continued to do well while on Zosyn. She completed a course IV was stable and switch to p.o. Augmentin which she will be discharged to [facility] with. At the day of discharge she is tolerating the continuous feeds and the medication without issue. She is medically acceptable to return Time Spent with Patient Time attestation: Total time spent providing and/or coordinating discharge services: Discharge coordination time: Greater than 30 minutes Quality: Stroke Does the patient have a stroke diagnosis?: No Physical Exam Vital Signs: Vital Signs: Last Vital Signs Temp 98.5 F 12/06/21 12:00 Pulse 66 12/06/21 12:00 Resp 18 12/06/21 12:00 BP 127/59 L 12/06/21 12:00 Pulse Ox 98 12/06/21 12:00 Oxygen Flow Rate 6 11/26/21 22:33 BMI result Body Mass Index 20.0 Const: Other: no acute distress Resp: Other: scant coarse rhonchi throughout; coarse crackles right base Cardio: Other: no S4; positive S1-S2; S3 murmurs or gallops GI: Other: soft nontender nondistended positive bowel sounds. G-tube site clean dry and intact Extrem: Other: no edema bilaterally Discharge Plan Discharge Patient Disposition: Xfer Other Discharge Diagnosis: Aspiration Pneumonia Referrals: [facility] [Other] - 1 Day (DISCHARGE PLAN RETURN BACK TO THE [facility], LONG-TERM NEW VNA REFERRAL TO [facility] FOR NURSING AND ASSESSMENT AND TEACHING FOLLOW UP FOR CONTINUOS GT FEEDS [phone] RESUMPTION OF HOME INFUSION [facility] PROVID FEED AND ALL SUPPLIES BOLUS PRIOR TO ADMISSION [facility] HOME INFUSION FOR ENTERAL FEEDS SUE BOND MANAGER [phone] TRANSORTATION ACTION S [facility] NURSE WENDY [phone] ET [id number] LONG-TERM COMPOSITE MECHANIC KANU [phone] ZOO CARETAKER TO CONTINUE TO FOLLOW ) Carlo Das MD [Primary Care Provider] - 1 Week Discharge Medications: New amoxicillin-pot clavulanate [Augmentin] 250-62.5 mg/5 mL suspension for reconstitution 17.5 ml feeding tube BID 10 Days Qty: 350 0RF Continued docusate sodium [Docu] 50 mg/5 mL liquid 100 mg PO BID 0RF acetaminophen 325 mg tablet 975 mg PO TID 0RF ketoconazole 2 % shampoo 1 appl topical DAILY 0RF trazodone 50 mg tablet 1 tab PO BEDTIME 0RF clonazepam 0.5 mg tablet 1 tab PO BID@0800,1400 0RF cyanocobalamin (vitamin B-12) 1,000 mcg tablet 1 tab PO DAILY 0RF sennosides [senna] 8.8 mg/5 mL syrup 17.6 mg PO DAILY 0RF triamcinolone acetonide 0.1 % cream 1 applic topical BID 0RF simvastatin 20 mg tablet 1 tab PO BEDTIME 0RF clonazepam 2 mg tablet 1 tab PO BEDTIME 0RF fluoxetine 10 mg capsule 1 cap PO DAILY 0RF folic acid 1 mg tablet 1 tab PO DAILY 0RF fluoxetine 20 mg capsule 1 cap PO DAILY 0RF clotrimazole 1 % cream 1 appl topical BID 0RF melatonin 1 mg tablet 1 tab PO BEDTIME 0RF cranberry 450 mg Tablet 450 mg PO DAILY 0RF Rx Instructions: administer with a meal valproic acid (as sodium salt) 250 mg/5 mL solution 1,750 mg PO BEDTIME 0RF valproic acid (as sodium salt) 250 mg/5 mL solution 1,500 mg PO DAILY 0RF Discharge Orders: Discharge Order (Routine); Ordered 12/06/21 Ordered By: David Almeida Diet: other Activity on Discharge: As tolerated Stand Alone Forms: Patient Portal Discharge page Activity Restrictions/Additional Instructions: wound care instructions:Cleanse right buttock, coccyx and right heel with wound cleanser. Then apply Woundres gel to all wounds cover them with small foam dressings daily. Care Plan Goals: Complete course of Augmentin as ordered Health Concerns: G-tube feedings; promote 60 cc an hour. Check residual every 4 hours and hold for 2 hours if greater than 250 mL. Water flush 120 mL every 8 hours Plan of Treatment: Resume previous meds prior to hospitalization Assessment: See discharge summary
--- NOTE | 2021-12-06 13:39 | P.F2F_ITS ---
Service Date Service Date: 12/06/21 Encounter Date of encounter: 12/06/21 Encounter: Inpatient hospitalization Reasons for Services Signs and symptoms assessed: Patient nonambulatory requiring G-tube feedings Reason for retirement: wound care Homebound: Leaving the home is medically contraindicated at this time without the asist of a device and/or another person due th the listed conditions above and below. Reason homebound: other (Patient bedbound. She is non ambulatory at baseline) Certification: Based on the above findings, I certify that this patient is confined to the home and needs intermittent retirement care, physical therapy and/or speech therapy, or continues to need occupational therapy. The patient is under my care, and I have initiated the establishment of the plan of care. The patient will be followed by a physician who will periodically review the plan of care.
[2021-12-06 14:02] LABS: COVID-19 Test Negative (Negative); IDNOW Serial# 16C4AD1C
== END 2021-12-06 14:41 | disposition other institution (70) | DRG 871 ==
LOC: HO.ED 11-27 05:44 → HO.EDOVER 11-27 09:50 → HO.S3 11-27 12:55
PROVIDERS: Admitting Provider Family Medicine; Emergency Provider Internal Medicine; PCP Internal Medicine; Visit Provider Hospitalist
DX: A41.9 Sepsis, unspecified organism (principal); J69.0 Pneumonitis due to inhalation of food and vomit; G93.41 Metabolic encephalopathy; E87.2 Acidosis; E87.0 Hyperosmolality and hypernatremia; E78.5 Hyperlipidemia, unspecified; R65.20 Severe sepsis without septic shock; K59.09 Other constipation; F31.9 Bipolar disorder, unspecified; R62.50 Unspecified lack of expected normal physiological development in childhood; F03.90 Unspecified dementia, unspecified severity, without behavioral disturbance, psychotic disturbance, mood disturbance, and anxiety; E87.5 Hyperkalemia; Z93.1 Gastrostomy status; Z87.01 Personal history of pneumonia (recurrent); Z74.01 Bed confinement status; Z99.3 Dependence on wheelchair; Z86.711 Personal history of pulmonary embolism; Z20.822 Contact with and (suspected) exposure to COVID-19; Z79.899 Other long term (current) drug therapy; Z66 Do not resuscitate
CPT/HCPCS: 36415; 71045; 71275; 74176; 80048; 80053; 80076; 81003; 82607; 82746; 82803; 82947; 83605; 83880; 84145; 84443; 84484; 85025; 85027; 85379; 85610; 87040; 87147; 87205; 87633; 87635; 93005; 96361; 96365; 96374; 99284; 99285; 99291; J1650; J1956; J2270; J2543; J3370; Q9967

== ENCOUNTER 2021-12-09 17:03 | Emergency (ER) | payer MEDICARE, MEDICAID, SELFPAY ==
--- NOTE | ~2021-12-09 | XR_ITS ---
EXAMINATION: XR CHEST CLINICAL INFORMATION: Aspiration, pneumonia. COMPARISON: Chest radiograph dated from 11/27/2019. TECHNIQUE: AP view of the chest was obtained. FINDINGS: Rotation of the patient limits assessment of the cardiomediastinal silhouette and left lung. There are minimal patchy opacities in the right lower lobe. No pleural effusion or pneumothorax. The cardiomediastinal silhouette is overall unchanged. No definite acute osseous abnormalities. EKG wires overlie the chest. XR/XR chest 1V IMPRESSION: Mild residual patchy opacities in the right lower lobe, significantly improved since 11/26/2021. No new focal airspace opacities.
[2021-12-09 17:16] VITALS: BP 120/77; BP 127/108; PULSE 80; PULSE 95; RESP 18; TEMP 36.6; O2SAT 100; O2SAT 85; BMI 20.9
--- NOTE | 2021-12-09 17:46 | ECG_ITS ---
Test Reason : sob Blood Pressure : / mmHG Vent. Rate : 078 BPM Atrial Rate : 078 BPM P-R Int : 134 ms QRS Dur : 058 ms QT Int : 350 ms P-R-T Axes : 072 -09 049 degrees QTc Int : 399 ms Artifact in tracing Normal sinus rhythm Probably normal EKG When compared with ECG of 26-NOV-2021 22:58, Nonspecific T wave abnormality no longer evident in Inferior leads Nonspecific T wave abnormality no longer evident in Lateral leads QT has shortened Referred By: Nehemiah Altman Electronically Signed By:TAO HYATT
[2021-12-09 18:05] LABS: MANUAL DIFF FLAG NO
[2021-12-09 18:10] LABS: Basophils Percent Auto 0.2 % (0-2); Eosinophils Percent Auto 0.1 % (0-4); Hematocrit 41.1 % (37.0-47.0); Hemoglobin 13.8 g/dl (12.0-16.0); Imm Gran Abs Auto 0.04 X10*3/uL (0.00-0.03); Imm Gran Pct Auto 0.4 % (0.0-0.4); Lymphocytes Absolute Auto 3.2 X10*3/uL (1.2-4.9); Lymphocytes Percent Auto 32.7 % (20-40); Mean Corpuscular HGB Conc 33.6 g/dl (31.0-35.0); Mean Corpuscular Hemoglobin 34.7 pg (27.0-33.0); Mean Corpuscular Volume 103.3 fL (80.0-98.0); Mean Platelet Volume 10.4 fL (9.4-12.3); Monocytes Absolute Auto 0.9 X10*3/uL (0.1-1.2); Monocytes Percent Auto 9.3 % (2-11); Neutrophils Absolute Auto 5.5 x10*3/uL (2.0-8.3); Neutrophils Percent Auto 57.3 % (45-73); Platelet Count 250 X10*3/uL (160-400); Red Blood Count 3.98 X10*6/uL (4.20-5.50); Red Cell Distribution Width 12.8 % (11.0-16.0); White Blood Count 9.7 X10*3/uL (4.8-10.8)
[2021-12-09 18:18] LABS: Lactic Acid 0.7 mmol/L (0.5-2.0)
[2021-12-09 18:20] VITALS: PULSE 76; RESP 19; O2SAT 100
[2021-12-09 18:27] LABS: B Type Natriuretic Peptide 31 pg/mL (<100)
[2021-12-09 18:34] LABS: Alanine Aminotransferase 12 U/L (0-31); Albumin Level 3.1 g/dL (3.5-5.0); Alkaline Phosphatase 129 U/L (39-117); Anion Gap 9 (12-20); Aspartate Amino Transferase 19 U/L (5-31); Bilirubin Total 0.3 mg/dL (0.0-1.0); Blood Urea Nitrogen 45 mg/dL (9-16); Calcium 9.3 mg/dL (8.4-10.2); Carbon Dioxide 36 mmol/L (22-29); Chloride 98 mmol/L (96-108); Creatinine Clr Calc Pharmacy 86.4; Estimated Glomerular Filt Rate > 60; Glucose Random 83 mg/dL (60-115); Potassium 4.4 mmol/L (3.3-5.1); Sodium 139 mmol/L (135-145)
--- NOTE | 2021-12-09 18:37 | ED_ITS ---
HPI - SOB/Dyspnea General Chief Complaint: Dyspnea Stated Complaint: LETHARGY,? PNA PER LONGTERM, NONVERBAL, Time Seen by Provider: 12/09/21 17:12 Source: EMS and RN notes reviewed History of Present Illness HPI Narrative: patient is 51 years old with history of developmental delay, bipolar disorder, tardive dyskinesia nonverbal bedbound G-tube feeding [facility] aspiration pneumonia discharged on Augmentin but patient has been allergic to Augmentin switched to clindamycin comes back as patient with desaturating to 80% after feeding with wet cough. Afebrile on arrival saturating 100% on 2 L Related Data Home Medications Medication Instructions Recorded Confirmed acetaminophen 325 mg tablet 975 mg PO TID 11/27/21 11/27/21 clonazepam 0.5 mg tablet 1 tab PO BID@0800,1400 11/27/21 11/27/21 clonazepam 2 mg tablet 1 tab PO BEDTIME 11/27/21 11/27/21 clotrimazole 1 % topical cream 1 appl TOPICAL BID 11/27/21 11/27/21 cranberry fruit 450 mg tablet 450 mg PO DAILY 11/27/21 11/27/21 (cranberry) cyanocobalamin (vitamin B-12) 1 tab PO DAILY 11/27/21 11/27/21 1,000 mcg tablet docusate sodium 50 mg/5 mL oral 100 mg PO BID 11/27/21 11/27/21 liquid (Docu) fluoxetine 10 mg capsule 1 cap PO DAILY 11/27/21 11/27/21 fluoxetine 20 mg capsule 1 cap PO DAILY 11/27/21 11/27/21 folic acid 1 mg tablet 1 tab PO DAILY 11/27/21 11/27/21 ketoconazole 2 % shampoo 1 appl TOPICAL DAILY 11/27/21 11/27/21 melatonin 1 mg tablet 1 tab PO BEDTIME 11/27/21 11/27/21 sennosides 8.8 mg/5 mL oral syrup 17.6 mg PO DAILY 11/27/21 11/27/21 (senna) simvastatin 20 mg tablet 1 tab PO BEDTIME 11/27/21 11/27/21 trazodone 50 mg tablet 1 tab PO BEDTIME 11/27/21 11/27/21 triamcinolone acetonide 0.1 % 1 applic TOPICAL BID 11/27/21 11/27/21 topical cream valproic acid (as sodium salt) 250 1,500 mg PO DAILY 11/27/21 11/27/21 mg/5 mL oral solution valproic acid (as sodium salt) 250 1,750 mg PO BEDTIME 11/27/21 11/27/21 mg/5 mL oral solution Previous Rx's Medication Instructions Recorded amoxicillin 250 mg-potassium 17.5 ml FEEDING TUBE BID 10 Days 12/03/21 clavulanate 62.5 mg/5 mL oral #350 ml suspension (Augmentin) Allergies Allergy/AdvReac Type Severity Reaction Status Date / Time ceftriaxone [From ROCEPHIN] Allergy Unknown UNKNOWN Verified 12/03/21 08:55 mirtazapine [MIRTAZAPINE] Allergy Unknown HIVES Verified 12/03/21 08:55 Review of Systems Review of Systems: Yes Unobtainable due to mental status [facility] Past Medical History Medical History Bipolar 2 disorder Chronic constipation Gastrostomy tube in place Hyperlipidemia Pulmonary emboli Tardive dyskinesia Social History Social History Household Members: Other Household Members Other:: longterm Housing: Assisted Living Facility Do you presently have visiting nurse or other home services: Yes (lives in longterm) Unable to assess alcohol history related to: Unknown Alcohol intake: unknown Patient Tobacco Use Status: Tobacco use Unknown Advance Directives: No Advance Directives Information Provided: No service: No Current occupational status: disabled Physical Exam Vital Signs: Vital Signs: Last Vital Signs Temp 97.8 F 12/09/21 17:16 Pulse 97 12/10/21 00:47 Resp 18 12/10/21 00:47 BP 133/103 H 12/09/21 23:14 Pulse Ox 94 12/10/21 00:47 Oxygen Flow Rate 2 12/09/21 17:16 BMI result Body Mass Index 20.9 Appearance: Alert. cachectic nonverbal occasional cough Eyes: PERRLA ENT: Pharynx normal. Oral Mucosa moist Neck: Normal inspection. Neck supple. CVS: Normal heart rate and rhythm. Pulses normal. Respiratory: bilateral conducted sounds. Equal air entry bilateral, no wheezing/rales/rhonchi Abdomen: Soft and nontender. Bowel sounds are present, no mass palpable, G-tube in place Skin: Skin warm and dry. Normal skin color. Normal skin turgor. Extremities: No lower extremity edema. No calf tenderness Neuro: alert and awake with contract posterior MDM - SOB/Dyspnea MDM Narrative Medical decision making narrative: . Chest x-ray without any worsening of the infiltrate labs are stable during stay in the ER patient started feeling better of her own start saturating 94% at room air patient has normal D-dimer unlikely PE the cause. Patient has mucus plug which got better. Patient is on continuous G-tube feeding advised to have a break every 4 hours for half an hour. Lab Data Attestation: I reviewed the patient's lab results. Result diagrams: 12/09/21 17:54 12/09/21 17:54 Labs: Lab Results 12/09/21 12/09/21 12/09/21 Range/Units 17:54 17:54 17:54 WBC 9.7 (4.8-10.8) X10*3/uL RBC 3.98 L (4.20-5.50) X10*6/uL Hgb 13.8 (12.0-16.0) g/dl Hct 41.1 (37.0-47.0) % MCV 103.3 H (80.0-98.0) fL MCH 34.7 H (27.0-33.0) pg MCHC 33.6 (31.0-35.0) g/dl RDW 12.8 (11.0-16.0) % Plt Count 250 (160-400) X10*3/uL MPV 10.4 (9.4-12.3) fL Immature Gran % (Auto) 0.4 (0.0-0.4) % Neut % (Auto) 57.3 (45-73) % Lymph % (Auto) 32.7 (20-40) % [place] % (Auto) 9.3 (2-11) % Eos % (Auto) 0.1 (0-4) % Baso % (Auto) 0.2 (0-2) % Lymph # (Auto) 3.2 (1.2-4.9) X10*3/uL [place] # (Auto) 0.9 (0.1-1.2) X10*3/uL Eos # (Auto) 0.0 (0.0-0.4) X10*3/uL Baso # (Auto) 0.0 (0.0-0.2) X10*3/uL Abs Immat Gran (auto) 0.04 H (0.00-0.03) X10*3/uL Absolute Neuts (auto) 5.5 (2.0-8.3) x10*3/uL Absolute Nucleated RBC 0.000 (0.0-0.012) X10*3/uL Nucleated RBC % (auto) 0.0 (0.0-0.2) /100WBC PT (9.9-13.0) SEC INR (0.9-1.1) APTT (24.1-38.0) SEC D-Dimer High Sensitivty NG/ML Sodium 139 (135-145) mmol/L Potassium 4.4 (3.3-5.1) mmol/L Chloride 98 (96-108) mmol/L Carbon Dioxide 36 H (22-29) mmol/L Anion Gap 9 L (12-20) BUN 45 H D (9-16) mg/dL Creatinine 0.63 (0.5-1.4) mg/dL Estim Creat Clear Calc 86.4 Estimated GFR > 60 Random Glucose 83 (60-115) mg/dL Lactic Acid 0.7 (0.5-2.0) mmol/L Calcium 9.3 (8.4-10.2) mg/dL Total Bilirubin 0.3 (0.0-1.0) mg/dL AST 19 D (5-31) U/L ALT 12 (0-31) U/L Alkaline Phosphatase 129 H D (39-117) U/L Troponin I High Sens (<3.5-17.0) ng/L B-Natriuretic Peptide (<100) pg/mL Total Protein 6.0 L (6.5-8.0) g/dL Albumin 3.1 L (3.5-5.0) g/dL 12/09/21 12/09/21 12/09/21 Range/Units 17:54 20:06 22:00 WBC (4.8-10.8) X10*3/uL RBC (4.20-5.50) X10*6/uL Hgb (12.0-16.0) g/dl Hct (37.0-47.0) % MCV (80.0-98.0) fL MCH (27.0-33.0) pg MCHC (31.0-35.0) g/dl RDW (11.0-16.0) % Plt Count (160-400) X10*3/uL MPV (9.4-12.3) fL Immature Gran % (Auto) (0.0-0.4) % Neut % (Auto) (45-73) % Lymph % (Auto) (20-40) % [place] % (Auto) (2-11) % Eos % (Auto) (0-4) % Baso % (Auto) (0-2) % Lymph # (Auto) (1.2-4.9) X10*3/uL [place] # (Auto) (0.1-1.2) X10*3/uL Eos # (Auto) (0.0-0.4) X10*3/uL Baso # (Auto) (0.0-0.2) X10*3/uL Abs Immat Gran (auto) (0.00-0.03) X10*3/uL Absolute Neuts (auto) (2.0-8.3) x10*3/uL Absolute Nucleated RBC (0.0-0.012) X10*3/uL Nucleated RBC % (auto) (0.0-0.2) /100WBC PT 11.1 (9.9-13.0) SEC INR 1.0 (0.9-1.1) APTT 36.1 (24.1-38.0) SEC D-Dimer High Sensitivty < 150 NG/ML Sodium (135-145) mmol/L Potassium (3.3-5.1) mmol/L Chloride (96-108) mmol/L Carbon Dioxide (22-29) mmol/L Anion Gap (12-20) BUN (9-16) mg/dL Creatinine (0.5-1.4) mg/dL Estim Creat Clear Calc Estimated GFR Random Glucose (60-115) mg/dL Lactic Acid (0.5-2.0) mmol/L Calcium (8.4-10.2) mg/dL Total Bilirubin (0.0-1.0) mg/dL AST (5-31) U/L ALT (0-31) U/L Alkaline Phosphatase (39-117) U/L Troponin I High Sens < 3.5 D < 3.5 (<3.5-17.0) ng/L B-Natriuretic Peptide 31 (<100) pg/mL Total Protein (6.5-8.0) g/dL Albumin (3.5-5.0) g/dL Discharge Plan Discharge Clinical Impression: Aspiration into lower respiratory tract Patient Disposition: Xfer LTC Instructions: Aspiration Precautions (ED) Additional Instructions: advised to hold off feeding for 30-60 minutes every 4 hours and give the feeding with reclining position. Continue clindamycin Prescriptions: No Action docusate sodium [Docu] 50 mg/5 mL liquid 100 mg PO BID 0RF acetaminophen 325 mg tablet 975 mg PO TID 0RF ketoconazole 2 % shampoo 1 appl topical DAILY 0RF trazodone 50 mg tablet 1 tab PO BEDTIME 0RF clonazepam 0.5 mg tablet 1 tab PO BID@0800,1400 0RF cyanocobalamin (vitamin B-12) 1,000 mcg tablet 1 tab PO DAILY 0RF sennosides [senna] 8.8 mg/5 mL syrup 17.6 mg PO DAILY 0RF triamcinolone acetonide 0.1 % cream 1 applic topical BID 0RF simvastatin 20 mg tablet 1 tab PO BEDTIME 0RF clonazepam 2 mg tablet 1 tab PO BEDTIME 0RF fluoxetine 10 mg capsule 1 cap PO DAILY 0RF folic acid 1 mg tablet 1 tab PO DAILY 0RF fluoxetine 20 mg capsule 1 cap PO DAILY 0RF clotrimazole 1 % cream 1 appl topical BID 0RF melatonin 1 mg tablet 1 tab PO BEDTIME 0RF cranberry 450 mg Tablet 450 mg PO DAILY 0RF Rx Instructions: administer with a meal valproic acid (as sodium salt) 250 mg/5 mL solution 1,750 mg PO BEDTIME 0RF valproic acid (as sodium salt) 250 mg/5 mL solution 1,500 mg PO DAILY 0RF amoxicillin-pot clavulanate [Augmentin] 250-62.5 mg/5 mL suspension for reconstitution 17.5 ml feeding tube BID 10 Days Qty: 350 0RF Interventions: ED Discharge Assessment Last Done: 12/10/21 01:04 Discharge Date/Time: 12/10/21 01:10
[2021-12-09 19:53] LABS: Troponin-I High Sensitivity < 3.5 ng/L (<3.5-17.0)
[2021-12-09 20:35] LABS: Troponin-I High Sensitivity < 3.5 ng/L (<3.5-17.0)
[2021-12-09 22:16] LABS: Prothrombin Time 11.1 SEC (9.9-13.0)
[2021-12-09 22:19] LABS: D Dimer High Sensitivity < 150 NG/ML; Partial Thromboplastin Time 36.1 SEC (24.1-38.0)
[2021-12-09 23:14] VITALS: BP 133/103; PULSE 97; RESP 18; O2SAT 94
[2021-12-10 00:47] VITALS: PULSE 97; RESP 18; O2SAT 94
== END 2021-12-10 01:10 ==
PROVIDERS: Emergency Provider Internal Medicine; PCP Internal Medicine
DX: J69.0 Pneumonitis due to inhalation of food and vomit (principal); R06.00 Dyspnea, unspecified; E78.5 Hyperlipidemia, unspecified; Z86.711 Personal history of pulmonary embolism; Z93.1 Gastrostomy status; Z79.02 Long term (current) use of antithrombotics/antiplatelets
CPT/HCPCS: 36415; 71045; 80053; 83605; 83880; 84484; 85025; 85379; 85610; 85730; 87040; 93005; 99283; 99284

== ENCOUNTER 2021-12-29 15:12 | Inpatient (IN) | payer MEDICARE, MEDICAID, SELFPAY ==
[2021-12-29] VITALS (7 sets, daily range): BP systolic 94–144; BP diastolic 49–79; PULSE 77–98; RESP 15–27; TEMP 37.6–38.3; O2SAT 50–100; BMI 26.2
--- NOTE | ~2021-12-29 | XR_ITS ---
EXAMINATION: XR CHEST CLINICAL INFORMATION: Shortness of breath. COMPARISON: Chest radiograph 01/03/2022 TECHNIQUE: Frontal view of the chest was obtained. FINDINGS: Multiple external artifacts overlie the thorax. Normal appearance of the cardiomediastinal structures. No effusions or pneumothoraces. No focal pulmonary consolidation identified. Grossly normal pattern of pulmonary vasculature. Mild convex rightward curvature of the thoracic spine. XR/XR chest 1V IMPRESSION: *No acute cardiopulmonary abnormalities.
--- NOTE | ~2021-12-29 | XR_ITS ---
EXAMINATION: PORTABLE CHEST 1 VIEW CLINICAL INFORMATION: ? aspiration . COMPARISON: 12/29/2021. TECHNIQUE: Portable frontal view of the chest was obtained. FINDINGS: The lungs are well expanded. No focal infiltrate, effusion, edema, or pneumothorax. Cardiac and mediastinal silhouettes are within normal limits for technique. No acute bony abnormality seen. XR/XR chest 1V IMPRESSION: No evidence of acute disease.
--- NOTE | ~2021-12-29 | XR_ITS ---
EXAMINATION: XR CHEST CLINICAL INFORMATION: Shortness of breath and hypoxia COMPARISON: 12/09/2021 TECHNIQUE: Frontal view of the chest was obtained. FINDINGS: No significant abnormality is noted involving the heart, lungs, mediastinum, bony thorax or soft tissues. XR/XR chest 1V IMPRESSION: Unremarkable examination.
--- NOTE | 2021-12-29 15:27 | ECG_ITS ---
Test Reason : Difficulty Breathing Blood Pressure : / mmHG Vent. Rate : 091 BPM Atrial Rate : 091 BPM P-R Int : 136 ms QRS Dur : 060 ms QT Int : 356 ms P-R-T Axes : 050 -31 049 degrees QTc Int : 437 ms Normal sinus rhythm Left axis deviation Septal infarct , age undetermined Abnormal ECG When compared with ECG of 09-DEC-2021 17:50, Non-specific change in ST segment in Lateral leads Referred By: Angelina Luna Electronically Signed By:JAJA DRAPER MD
--- NOTE | 2021-12-29 15:35 | ED_ITS ---
HPI - SOB/Dyspnea General Chief Complaint: Dyspnea <Angelina Luna MD - Last Filed: 12/29/21 19:10> Stated Complaint: SOB <Angelina Luna MD - Last Filed: 12/29/21 19:10> Time Seen by Provider: 12/29/21 15:26 <Angelina Luna MD - Last Filed: 12/29/21 19:10> Source: EMS <Angelina Luna MD - Last Filed: 12/29/21 19:10> Mode of arrival: EMS <Angelina Luna MD - Last Filed: 12/29/21 19:10> Limitations: altered mental status <Angelina Luna MD - Last Filed: 12/29/21 19:10> History of Present Illness HPI Narrative: Patient comes to the emergency room via EMS from a [facility]pc. It was noted that patient had severe respiratory distress, patient is nonverbal at baseline. Patient has frequent episodes of aspiration pneumonia. Oxygen saturation was in the low 60s on room air. Patient was started on non- rebreather, oxygen saturation improved to the low 60s. Patient unable to give any history. <Angelina Luna MD - Last Filed: 12/29/21 19:10> Related Data Home Medications: Home Medications Medication Instructions Recorded Confirmed acetaminophen 325 mg tablet 975 mg FEEDING TUBE TID 11/27/21 12/29/21 clonazepam 0.5 mg tablet 1 tab FEEDING TUBE BID@0800,1400 11/27/21 12/29/21 clonazepam 2 mg tablet 1 tab FEEDING TUBE BEDTIME 11/27/21 12/29/21 clotrimazole 1 % topical cream 1 appl TOPICAL MOFR 11/27/21 12/29/21 cyanocobalamin (vitamin B-12) 1 tab FEEDING TUBE DAILY 11/27/21 12/29/21 1,000 mcg tablet docusate sodium 50 mg/5 mL oral 100 mg FEEDING TUBE BID 11/27/21 12/29/21 liquid (Docu) fluoxetine 10 mg capsule 1 cap FEEDING TUBE DAILY 11/27/21 12/29/21 fluoxetine 20 mg capsule 1 cap FEEDING TUBE DAILY 11/27/21 12/29/21 folic acid 1 mg tablet 1 tab FEEDING TUBE DAILY 11/27/21 12/29/21 ketoconazole 2 % shampoo 1 appl TOPICAL DAILY 11/27/21 12/29/21 melatonin 1 mg tablet 1 tab FEEDING TUBE BEDTIME 11/27/21 12/29/21 sennosides 8.8 mg/5 mL oral syrup 17.6 mg FEEDING TUBE DAILY 11/27/21 12/29/21 (senna) simvastatin 20 mg tablet 1 tab FEEDING TUBE BEDTIME 11/27/21 12/29/21 trazodone 50 mg tablet 1 tab FEEDING TUBE BEDTIME 11/27/21 12/29/21 triamcinolone acetonide 0.1 % 1 applic TOPICAL DAILY 11/27/21 12/29/21 topical cream valproic acid (as sodium salt) 250 1,500 mg PO DAILY 11/27/21 12/29/21 mg/5 mL oral solution valproic acid (as sodium salt) 250 1,750 mg FEEDING TUBE BEDTIME 11/27/21 12/29/21 mg/5 mL oral solution cranberry 400 mg capsule 400 mg FEEDING TUBE DAILY 12/29/21 12/29/21 <Angelina Luna MD - Last Filed: 12/29/21 19:10> Allergies/Adverse Reactions: Allergies Allergy/AdvReac Type Severity Reaction Status Date / Time ceftriaxone [From ROCEPHIN] Allergy Unknown UNKNOWN Verified 12/03/21 08:55 mirtazapine [MIRTAZAPINE] Allergy Unknown HIVES Verified 12/03/21 08:55 <Angelina Luna MD - Last Filed: 12/29/21 19:10> Review of Systems Review of Systems: Yes Unobtainable due to mental condition <Angelina Luna MD - Last Filed: 12/29/21 19:10> [facility] Past Medical History Medical History: Medical History Bipolar 2 disorder Chronic constipation Gastrostomy tube in place Hyperlipidemia Pulmonary emboli Tardive dyskinesia <Angelina Luna MD - Last Filed: 12/29/21 19:10> Social History Social History: Social History Household Members: Other Household Members Other:: fpc Housing: Assisted Living Facility Do you presently have visiting nurse or other home services: Yes (lives in fpc) Unable to assess alcohol history related to: Unknown Alcohol intake: unknown Patient Tobacco Use Status: Tobacco use Unknown Advance Directives: No Advance Directives Information Provided: No service: No Current occupational status: disabled <Angelina Luna MD - Last Filed: 12/29/21 19:10> Physical Exam Vital Signs: Vital Signs: Last Vital Signs Pulse 82 12/29/21 20:16 Resp 16 12/29/21 20:16 BP 94/58 L 12/29/21 20:16 Pulse Ox 99 12/29/21 20:16 Oxygen Flow Rate 15 12/29/21 15:24 BMI result Body Mass Index 26.2 <Angelina Luna MD - Last Filed: 12/29/21 19:10> Const: Other: Appearance: Alert. Oriented X3. No acute distress. Eyes: Pupils equal, round and reactive to light. ENT: Pharynx normal. Neck: Normal inspection. Neck supple. No lymph nodes noted. No crepitus CVS: Normal heart rate and rhythm. Pulses normal. Normal S1 and S2 Respiratory: No respiratory distress. Breath sounds normal. No Wheezing. No rales Abdomen: Soft and nontender. No rigidity. No distention. Skin: Skin warm and dry. Normal skin color. Normal skin turgor. Extremities: No lower extremity edema. No Lacerations. No Rash Neuro: Oriented X 3. No motor deficit. No sensory deficit. Moving all extremities. No slurred speech. CN 2 through 12 grossly intact Psych: calm, cooperative, normal affect <Angelina Luna MD - Last Filed: 12/29/21 19:10> Course Course Course Narrative: when pt came in, her initial O2 was in the low 60s. Patient was put on a non-rebreather at 15 L, oxygen saturation only improved to the low 80s. Respiratory therapy section the patient and then Patient was switched to BiPAP, patient remained on BiPAP for 1 hour, oxygen saturation improved to 100%. Patient was weaned off, now on 4 L saturating 96%. Patient breathing comfortably. White blood cell count, lactic acid and chest x-ray within normal limits. At this time, pulmonary embolisms are not suspected. Patient being admitted to the hospitalist service. <Angelina Luna MD - Last Filed: 12/29/21 19:10> MDM - SOB/Dyspnea Lab Data Result diagrams: : 12/29/21 15:47 12/29/21 15:35 <Angelina Luna MD - Last Filed: 12/29/21 19:10> Labs: Lab Results 12/29/21 12/29/21 12/29/21 Range/Units 15:35 15:35 15:35 WBC (4.8-10.8) X10*3/uL RBC (4.20-5.50) X10*6/uL Hgb (12.0-16.0) g/dl Hct (37.0-47.0) % MCV (80.0-98.0) fL MCH (27.0-33.0) pg MCHC (31.0-35.0) g/dl RDW (11.0-16.0) % Plt Count (160-400) X10*3/uL MPV (9.4-12.3) fL Immature Gran % (Auto) (0.0-0.4) % Neut % (Auto) (45-73) % Lymph % (Auto) (20-40) % Ulster % (Auto) (2-11) % Eos % (Auto) (0-4) % Baso % (Auto) (0-2) % Lymph # (Auto) (1.2-4.9) X10*3/uL Ulster # (Auto) (0.1-1.2) X10*3/uL Eos # (Auto) (0.0-0.4) X10*3/uL Baso # (Auto) (0.0-0.2) X10*3/uL Abs Immat Gran (auto) (0.00-0.03) X10*3/uL Absolute Neuts (auto) (2.0-8.3) x10*3/uL Absolute Nucleated RBC (0.0-0.012) X10*3/uL Nucleated RBC % (auto) (0.0-0.2) /100WBC PT 10.7 (9.9-13.0) SEC INR 0.9 (0.9-1.1) VBG pH VBG pCO2 VBG pO2 VBG HCO3 VBG O2 Saturation VBG Base Excess Sodium 139 (135-145) mmol/L Potassium 4.5 (3.3-5.1) mmol/L Chloride 98 (96-108) mmol/L Carbon Dioxide 35 H (22-29) mmol/L Anion Gap 11 L (12-20) BUN 42 H (9-16) mg/dL Creatinine 0.58 (0.5-1.4) mg/dL Estim Creat Clear Calc 92.6 Estimated GFR > 60 Random Glucose 94 (60-115) mg/dL Lactic Acid 1.3 (0.5-2.0) mmol/L Calcium 9.5 (8.4-10.2) mg/dL Magnesium 2.0 (1.6-2.6) mg/dL Total Bilirubin 0.6 (0.0-1.0) mg/dL Direct Bilirubin 0.2 (0.0-0.5) mg/dL AST 17 (5-31) U/L ALT 9 (0-31) U/L Alkaline Phosphatase 128 H (39-117) U/L Troponin I High Sens (<3.5-17.0) ng/L B-Natriuretic Peptide (<100) pg/mL Total Protein 6.5 (6.5-8.0) g/dL Albumin 3.5 (3.5-5.0) g/dL COVID-19 (PRATIMA) (Negative) COVID-19 Clin Com Influenza Type A (EULALIO) (Negative) Influenza Type B (EULALIO) (Negative) Influenza A & B Note 12/29/21 12/29/21 12/29/21 Range/Units 15:35 15:35 15:35 WBC (4.8-10.8) X10*3/uL RBC (4.20-5.50) X10*6/uL Hgb (12.0-16.0) g/dl Hct (37.0-47.0) % MCV (80.0-98.0) fL MCH (27.0-33.0) pg MCHC (31.0-35.0) g/dl RDW (11.0-16.0) % Plt Count (160-400) X10*3/uL MPV (9.4-12.3) fL Immature Gran % (Auto) (0.0-0.4) % Neut % (Auto) (45-73) % Lymph % (Auto) (20-40) % Ulster % (Auto) (2-11) % Eos % (Auto) (0-4) % Baso % (Auto) (0-2) % Lymph # (Auto) (1.2-4.9) X10*3/uL Ulster # (Auto) (0.1-1.2) X10*3/uL Eos # (Auto) (0.0-0.4) X10*3/uL Baso # (Auto) (0.0-0.2) X10*3/uL Abs Immat Gran (auto) (0.00-0.03) X10*3/uL Absolute Neuts (auto) (2.0-8.3) x10*3/uL Absolute Nucleated RBC (0.0-0.012) X10*3/uL Nucleated RBC % (auto) (0.0-0.2) /100WBC PT (9.9-13.0) SEC INR (0.9-1.1) VBG pH Cancelled VBG pCO2 Cancelled VBG pO2 Cancelled VBG HCO3 Cancelled VBG O2 Saturation Cancelled VBG Base Excess Cancelled Sodium (135-145) mmol/L Potassium (3.3-5.1) mmol/L Chloride (96-108) mmol/L Carbon Dioxide (22-29) mmol/L Anion Gap (12-20) BUN (9-16) mg/dL Creatinine (0.5-1.4) mg/dL Estim Creat Clear Calc Estimated GFR Random Glucose (60-115) mg/dL Lactic Acid (0.5-2.0) mmol/L Calcium (8.4-10.2) mg/dL Magnesium (1.6-2.6) mg/dL Total Bilirubin (0.0-1.0) mg/dL Direct Bilirubin (0.0-0.5) mg/dL AST (5-31) U/L ALT (0-31) U/L Alkaline Phosphatase (39-117) U/L Troponin I High Sens < 3.5 (<3.5-17.0) ng/L B-Natriuretic Peptide 38 (<100) pg/mL Total Protein (6.5-8.0) g/dL Albumin (3.5-5.0) g/dL COVID-19 (PRATIMA) Negative (Negative) COVID-19 Clin Com See Note Influenza Type A (EULALIO) (Negative) Influenza Type B (EULALIO) (Negative) Influenza A & B Note 12/29/21 12/29/21 12/29/21 Range/Units 15:39 15:47 15:47 WBC 8.1 (4.8-10.8) X10*3/uL RBC 4.07 L (4.20-5.50) X10*6/uL Hgb 14.0 (12.0-16.0) g/dl Hct 42.3 (37.0-47.0) % MCV 103.9 H (80.0-98.0) fL MCH 34.4 H (27.0-33.0) pg MCHC 33.1 (31.0-35.0) g/dl RDW 12.7 (11.0-16.0) % Plt Count 233 (160-400) X10*3/uL MPV 10.2 (9.4-12.3) fL Immature Gran % (Auto) 0.2 (0.0-0.4) % Neut % (Auto) 47.6 (45-73) % Lymph % (Auto) 44.0 H (20-40) % Ulster % (Auto) 7.5 (2-11) % Eos % (Auto) 0.5 (0-4) % Baso % (Auto) 0.2 (0-2) % Lymph # (Auto) 3.5 (1.2-4.9) X10*3/uL Ulster # (Auto) 0.6 (0.1-1.2) X10*3/uL Eos # (Auto) 0.0 (0.0-0.4) X10*3/uL Baso # (Auto) 0.0 (0.0-0.2) X10*3/uL Abs Immat Gran (auto) 0.02 (0.00-0.03) X10*3/uL Absolute Neuts (auto) 3.8 (2.0-8.3) x10*3/uL Absolute Nucleated RBC 0.000 (0.0-0.012) X10*3/uL Nucleated RBC % (auto) 0.0 (0.0-0.2) /100WBC PT (9.9-13.0) SEC INR (0.9-1.1) VBG pH 7.31 L VBG pCO2 76 VBG pO2 50 VBG HCO3 39 H VBG O2 Saturation 72.0 VBG Base Excess 9.5 Sodium (135-145) mmol/L Potassium (3.3-5.1) mmol/L Chloride (96-108) mmol/L Carbon Dioxide (22-29) mmol/L Anion Gap (12-20) BUN (9-16) mg/dL Creatinine (0.5-1.4) mg/dL Estim Creat Clear Calc Estimated GFR Random Glucose (60-115) mg/dL Lactic Acid (0.5-2.0) mmol/L Calcium (8.4-10.2) mg/dL Magnesium (1.6-2.6) mg/dL Total Bilirubin (0.0-1.0) mg/dL Direct Bilirubin (0.0-0.5) mg/dL AST (5-31) U/L ALT (0-31) U/L Alkaline Phosphatase (39-117) U/L Troponin I High Sens (<3.5-17.0) ng/L B-Natriuretic Peptide (<100) pg/mL Total Protein (6.5-8.0) g/dL Albumin (3.5-5.0) g/dL COVID-19 (PRATIMA) (Negative) COVID-19 Clin Com Influenza Type A (EULALIO) Negative (Negative) Influenza Type B (EULALIO) Negative (Negative) Influenza A & B Note See Note <Angelina Luna MD - Last Filed: 12/29/21 19:10> Discharge Plan Discharge Clinical Impression: Hypoxic, Mucus plugging of bronchi <Angelina Luna MD - Last Filed: 12/29/21 19:10> Patient Disposition: Admitted As Inpatient <Angelina Luna MD - Last Filed: 12/29/21 19:10>
[2021-12-29 15:45] LABS: Venous Blood Gas Refer to POC result
[2021-12-29 15:46] LABS: VBG Base Excess 9.5 mmol/L; VBG HCO3 39 mmol/L (22-26); VBG pCO2 76 mmHg; VBG pH 7.31 (7.32-7.43); VBG pO2 50 mmHg
[2021-12-29 15:49] LABS: INTERNATIONAL NORM RATIO 0.9 (0.9-1.1); Prothrombin Time 10.7 SEC (9.9-13.0)
[2021-12-29 15:51] LABS: MANUAL DIFF FLAG NO
[2021-12-29 15:54] LABS: Basophils Percent Auto 0.2 % (0-2); Eosinophils Percent Auto 0.5 % (0-4); Hematocrit 42.3 % (37.0-47.0); Imm Gran Abs Auto 0.02 X10*3/uL (0.00-0.03); Imm Gran Pct Auto 0.2 % (0.0-0.4); Lymphocytes Absolute Auto 3.5 X10*3/uL (1.2-4.9); Mean Corpuscular HGB Conc 33.1 g/dl (31.0-35.0); Mean Corpuscular Hemoglobin 34.4 pg (27.0-33.0); Mean Corpuscular Volume 103.9 fL (80.0-98.0); Mean Platelet Volume 10.2 fL (9.4-12.3); Monocytes Absolute Auto 0.6 X10*3/uL (0.1-1.2); Monocytes Percent Auto 7.5 % (2-11); Neutrophils Absolute Auto 3.8 x10*3/uL (2.0-8.3); Neutrophils Percent Auto 47.6 % (45-73); Platelet Count 233 X10*3/uL (160-400); Red Blood Count 4.07 X10*6/uL (4.20-5.50); Red Cell Distribution Width 12.7 % (11.0-16.0); White Blood Count 8.1 X10*3/uL (4.8-10.8)
[2021-12-29 15:56] LABS: Lactic Acid 1.3 mmol/L (0.5-2.0)
[2021-12-29] MEDS: Piperacillin Sodium/Tazobactam 3.375 GM in 0.9 % Sodium Chloride 50 ML IV (16:00)
[2021-12-29 16:02] LABS: Alanine Aminotransferase 9 U/L (0-31); Albumin Level 3.5 g/dL (3.5-5.0); Alkaline Phosphatase 128 U/L (39-117); Anion Gap 11 (12-20); Aspartate Amino Transferase 17 U/L (5-31); Bilirubin Direct 0.2 mg/dL (0.0-0.5); Bilirubin Total 0.6 mg/dL (0.0-1.0); Blood Urea Nitrogen 42 mg/dL (9-16); Calcium 9.5 mg/dL (8.4-10.2); Carbon Dioxide 35 mmol/L (22-29); Chloride 98 mmol/L (96-108); Creatinine Clr Calc Pharmacy 92.6; Estimated Glomerular Filt Rate > 60; Glucose Random 94 mg/dL (60-115); Potassium 4.5 mmol/L (3.3-5.1); Sodium 139 mmol/L (135-145); Total Protein 6.5 g/dL (6.5-8.0)
[2021-12-29 16:06] LABS: COVID-19 Test Negative (Negative); IDNOW Serial# 16C4AD1C
[2021-12-29 16:08] LABS: B Type Natriuretic Peptide 38 pg/mL (<100); Troponin-I High Sensitivity < 3.5 ng/L (<3.5-17.0)
[2021-12-29 16:12] LABS: IDNOW Serial# 55D5AD1C; Influenza A Negative (Negative); Influenza B2 Negative (Negative)
--- NOTE | 2021-12-29 17:46 | PHA.MEDREC ---
Pharmacy Consult ? Medication Reconciliation Pharmacy has completed the medication reconciliation.
[2021-12-29] MEDS: 0.9 % Sodium Chloride 1,000 ML 999 ML IVCONT ×2 (19:11→20:26)
--- NOTE | 2021-12-29 20:23 | P.HPHOSP_ITS ---
History of Present Illness Date of Service: 12/29/21 Chief Complaint: hypoxic This is a 51-year-old female with history of developmental delay, bipolar disorder, tardive dyskinesia, who comes in from retirement is wheelchair bed- bound and G-tube dependent presents with hypoxia. According to the retirement director at bedside patient usually has difficulty clearing her secretions and has had mucus plugging on several occasion brought into the ED for the same. Patient is nonverbal at bedside therefore unable to get much history from her. According to the staff at bedside, patient became hypoxic and had difficulty around noontime, on arrival of EMS, patient was found to be hypoxic at 60%. On arrival to the ED patient noted to be hypoxic at 50% on 15 L of non- rebreather, patient was placed on BiPAP with improvement of her O2, patient is currently on 2 L satting 100%. Labs are significant for WBC count of 8.1, pH of 7.31, labs otherwise unremarkable, chest x-ray negative Patient given 1 dose of Zosyn will be admitted for further management due to the hypoxia Review of Systems Review of Systems: Yes all other systems are reviewed and are negative [facility] Medical History Bipolar 2 disorder Chronic constipation Gastrostomy tube in place Hyperlipidemia Pulmonary emboli Tardive dyskinesia Pertinent family history: no known family history, unable to obtain given pt mentation Social History Household Members: Other Household Members Other:: retirement Housing: Assisted Living Facility Do you presently have visiting nurse or other home services: Yes (lives in retirement) Unable to assess alcohol history related to: Unknown Alcohol intake: unknown Patient Tobacco Use Status: Tobacco use Unknown Advance Directives: No Advance Directives Information Provided: No service: No Current occupational status: disabled Meds Allergies Allergy/AdvReac Type Severity Reaction Status Date / Time ceftriaxone [From ROCEPHIN] Allergy Unknown UNKNOWN Verified 12/03/21 08:55 mirtazapine [MIRTAZAPINE] Allergy Unknown HIVES Verified 12/03/21 08:55 Active Medications: Current Medications Pharmacy Consult (Consult Rx Perform Med Rec) 1 each MISCELLANE ONCE PRN PRN Reason: Consult order Home Medications Medication Instructions Recorded Confirmed Last Taken Type acetaminophen 325 mg tablet 975 mg FEEDING TUBE TID 11/27/21 12/29/21 12/29/21 History clonazepam 0.5 mg tablet 1 tab FEEDING TUBE BID@0800,1400 11/27/21 12/29/21 12/28/21 History clonazepam 2 mg tablet 1 tab FEEDING TUBE BEDTIME 11/27/21 12/29/21 12/28/21 History clotrimazole 1 % topical cream 1 appl TOPICAL MOFR 11/27/21 12/29/21 12/27/21 History cyanocobalamin (vitamin B-12) 1 tab FEEDING TUBE DAILY 11/27/21 12/29/21 12/29/21 History 1,000 mcg tablet docusate sodium 50 mg/5 mL oral 100 mg FEEDING TUBE BID 11/27/21 12/29/21 12/29/21 History liquid (Docu) fluoxetine 10 mg capsule 1 cap FEEDING TUBE DAILY 11/27/21 12/29/21 12/29/21 History fluoxetine 20 mg capsule 1 cap FEEDING TUBE DAILY 11/27/21 12/29/21 12/29/21 History folic acid 1 mg tablet 1 tab FEEDING TUBE DAILY 11/27/21 12/29/21 12/29/21 History ketoconazole 2 % shampoo 1 appl TOPICAL DAILY 11/27/21 12/29/21 12/29/21 History melatonin 1 mg tablet 1 tab FEEDING TUBE BEDTIME 11/27/21 12/29/21 12/28/21 History sennosides 8.8 mg/5 mL oral syrup 17.6 mg FEEDING TUBE DAILY 11/27/21 12/29/21 12/29/21 History (senna) simvastatin 20 mg tablet 1 tab FEEDING TUBE BEDTIME 11/27/21 12/29/21 12/28/21 History trazodone 50 mg tablet 1 tab FEEDING TUBE BEDTIME 11/27/21 12/29/21 12/28/21 History triamcinolone acetonide 0.1 % 1 applic TOPICAL DAILY 11/27/21 12/29/21 12/29/21 History topical cream valproic acid (as sodium salt) 250 1,500 mg PO DAILY 11/27/21 12/29/21 12/29/21 History mg/5 mL oral solution valproic acid (as sodium salt) 250 1,750 mg FEEDING TUBE BEDTIME 11/27/21 12/29/21 12/28/21 History mg/5 mL oral solution cranberry 400 mg capsule 400 mg FEEDING TUBE DAILY 12/29/21 12/29/21 12/29/21 History Physical Exam Vital Signs and Narrative: Vital Signs: Last Vital Signs Pulse 82 12/29/21 20:16 Resp 16 12/29/21 20:16 BP 94/58 L 12/29/21 20:16 Pulse Ox 99 12/29/21 20:16 Oxygen Flow Rate 15 12/29/21 15:24 BMI result Body Mass Index 26.2 Results Labs CBC and Chem 7: 12/30/21 05:36 12/30/21 05:36 Labs: Laboratory Results - last 24 hr 12/29/21 12/29/21 12/29/21 15:35 15:35 15:35 MCV MCH MCHC RDW Plt Count MPV Immature Gran % (Auto) Neut % (Auto) Lymph % (Auto) Sebastian % (Auto) Eos % (Auto) Baso % (Auto) Lymph # (Auto) Sebastian # (Auto) Eos # (Auto) Baso # (Auto) Abs Immat Gran (auto) Absolute Neuts (auto) Absolute Nucleated RBC Nucleated RBC % (auto) PT 10.7 INR 0.9 VBG pH VBG pCO2 VBG pO2 VBG HCO3 VBG O2 Saturation VBG Base Excess Anion Gap 11 L Estim Creat Clear Calc 92.6 Estimated GFR > 60 Random Glucose 94 Lactic Acid 1.3 Calcium 9.5 Magnesium 2.0 Total Bilirubin 0.6 Direct Bilirubin 0.2 AST 17 ALT 9 Alkaline Phosphatase 128 H Troponin I High Sens B-Natriuretic Peptide Total Protein 6.5 Albumin 3.5 COVID-19 (PRATIMA) COVID-19 Clin Com Influenza Type A (EULALIO) Influenza Type B (EULALIO) Influenza A & B Note 12/29/21 12/29/21 12/29/21 15:35 15:35 15:35 MCV MCH MCHC RDW Plt Count MPV Immature Gran % (Auto) Neut % (Auto) Lymph % (Auto) Sebastian % (Auto) Eos % (Auto) Baso % (Auto) Lymph # (Auto) Sebastian # (Auto) Eos # (Auto) Baso # (Auto) Abs Immat Gran (auto) Absolute Neuts (auto) Absolute Nucleated RBC Nucleated RBC % (auto) PT INR VBG pH Cancelled VBG pCO2 Cancelled VBG pO2 Cancelled VBG HCO3 Cancelled VBG O2 Saturation Cancelled VBG Base Excess Cancelled Anion Gap Estim Creat Clear Calc Estimated GFR Random Glucose Lactic Acid Calcium Magnesium Total Bilirubin Direct Bilirubin AST ALT Alkaline Phosphatase Troponin I High Sens < 3.5 B-Natriuretic Peptide 38 Total Protein Albumin COVID-19 (PRATIMA) Negative COVID-19 Clin Com See Note Influenza Type A (EULALIO) Influenza Type B (EULALIO) Influenza A & B Note 12/29/21 12/29/21 12/29/21 15:39 15:47 15:47 MCV 103.9 H MCH 34.4 H MCHC 33.1 RDW 12.7 Plt Count 233 MPV 10.2 Immature Gran % (Auto) 0.2 Neut % (Auto) 47.6 Lymph % (Auto) 44.0 H Sebastian % (Auto) 7.5 Eos % (Auto) 0.5 Baso % (Auto) 0.2 Lymph # (Auto) 3.5 Sebastian # (Auto) 0.6 Eos # (Auto) 0.0 Baso # (Auto) 0.0 Abs Immat Gran (auto) 0.02 Absolute Neuts (auto) 3.8 Absolute Nucleated RBC 0.000 Nucleated RBC % (auto) 0.0 PT INR VBG pH 7.31 L VBG pCO2 76 VBG pO2 50 VBG HCO3 39 H VBG O2 Saturation 72.0 VBG Base Excess 9.5 Anion Gap Estim Creat Clear Calc Estimated GFR Random Glucose Lactic Acid Calcium Magnesium Total Bilirubin Direct Bilirubin AST ALT Alkaline Phosphatase Troponin I High Sens B-Natriuretic Peptide Total Protein Albumin COVID-19 (PRATIMA) COVID-19 Clin Com Influenza Type A (EULALIO) Negative Influenza Type B (EULALIO) Negative Influenza A & B Note See Note Imaging Radiologist's Impressions: Impressions Chest X-Ray 12/29/21 16:03 IMPRESSION: Unremarkable examination. Assessment and Plan (1) Acute respiratory failure with hypoxia: Status: Acute (2) Mucus plugging of bronchi: Status: Acute Plan 51-year-old female with developmental delay, chronically bed-bound presents to the hospital with hypoxia found to be hypoxic respiratory failure secondary to likely mucus plugging # acute hypoxic respiratory failure - no evidence of pneumonia on x-ray - no leukocytosis, afebrile - will treat with frequent suction - O2 as required - titrate O2 as tolerated # history of mucus plugging - patient has difficulty clearing secretions - G-tube in place - will consult RT for frequent suction # will continue all her other meds DVT prophylaxis: Lovenox Given the hypoxia, patient will require medically necessary 2 night admission for further management and evaluation Quality Stroke Does the patient have a stroke diagnosis?: No VTE Prior VTE?: No VTE Risk Level:: Medical - moderate - high VTE Device Contraindication: Treatment Not Indicated VTE Drug Contraindication: N/A - Med Ordered
[2021-12-29] MEDS: Lactated Ringers 1,000 ML 80 ML IVCONT (21:59)
[2021-12-29] MEDS: Heparin Sodium,Porcine 5,000 UNIT/ML VIAL 5000 UNIT SUBCUT (22:09)
[2021-12-29 23:12] LABS: Glucose, Whole Blood 76 mg/dL (60-115)
[2021-12-29] MEDS: Acetaminophen Supp 650 MG SUPP.RECT PR (23:12)
[2021-12-30] VITALS (7 sets, daily range): BP systolic 118–145; BP diastolic 60–80; PULSE 72–80; RESP 16–20; TEMP 36.6–37; O2SAT 95–100
[2021-12-30] MEDS: Dextrose 5 % and Lactated Ring 1,000 ML 80 ML IVCONT ×2 (00:08→12:25)
[2021-12-30 06:08] LABS: MANUAL DIFF FLAG NO
[2021-12-30 06:29] LABS: Anion Gap 13 (12-20); Basophils Percent Auto 0.2 % (0-2); Blood Urea Nitrogen 25 mg/dL (9-16); Calcium 9.5 mg/dL (8.4-10.2); Carbon Dioxide 27 mmol/L (22-29); Chloride 104 mmol/L (96-108); Creatinine Clr Calc Pharmacy 95.9; Estimated Glomerular Filt Rate > 60; Glucose Random 92 mg/dL (60-115); Hematocrit 37.6 % (37.0-47.0); Hemoglobin 12.4 g/dl (12.0-16.0); Imm Gran Abs Auto 0.07 X10*3/uL (0.00-0.03); Imm Gran Pct Auto 0.5 % (0.0-0.4); Lymphocytes Absolute Auto 1.9 X10*3/uL (1.2-4.9); Lymphocytes Percent Auto 12.2 % (20-40); Mean Corpuscular Hemoglobin 34.5 pg (27.0-33.0); Mean Corpuscular Volume 104.7 fL (80.0-98.0); Monocytes Percent Auto 6.4 % (2-11); Neutrophils Absolute Auto 12.5 x10*3/uL (2.0-8.3); Neutrophils Percent Auto 80.7 % (45-73); Platelet Count 186 X10*3/uL (160-400); Potassium 4.2 mmol/L (3.3-5.1); Red Blood Count 3.59 X10*6/uL (4.20-5.50); Red Cell Distribution Width 12.9 % (11.0-16.0); Sodium 140 mmol/L (135-145); White Blood Count 15.5 X10*3/uL (4.8-10.8)
[2021-12-30] MEDS: Piperacillin Sodium/Tazobactam 3.375 GM in 0.9 % Sodium Chloride 50 ML IV ×3 (06:42→19:19)
--- NOTE | 2021-12-30 07:10 | PM.EVENT ---
Event Note Date of Service: 12/30/21 Event Note: Patient had a fever of 101 at around 23:00 which I was not informed of. Patient did developed positive blood cultures this morning, at this time will continue her Zosyn, and obtain repeat blood cultures as well lactic acid Patient otherwise hemodynamically stable
[2021-12-30 07:44] LABS: Lactic Acid 1.3 mmol/L (0.5-2.0)
[2021-12-30] MEDS: Heparin Sodium,Porcine 5,000 UNIT/ML VIAL 5000 UNIT SUBCUT ×2 (08:58→22:23)
--- NOTE | 2021-12-30 15:54 | MHC.CM.PN ---
Addendum entered by Nury Brown 12/31/21 11:21: CM SPOKE TO PTS SHAHZAD MITTAL VIA T/C MEDICARE RIGHTS WERE DELIVERED SHE WAS ALSO INFORMED THE PT IS LIKELY TO DC TOMORROW WITH LIQUID AUGMENTIN PER MD ROUNDS Addendum entered by Nury Brown 12/30/21 15:58: CM ATTEMPTED TO CONTACT PTS SHAHZAD MITTAL [phone] TO DELIVER IMM HOWEVER HER VM BOX HAS NOT BEEN SET UP. IMM WILL BE MAILED AND CM WILL TRY CALL AGAIN TOMORROW Original Note: CM SPOKE TO KEN, ([phone]) TAILERCPA OF PTS SN[facility], SHE REPORTS PT IS DEPENDENT FOR CARE WHICH IS PROVIDED BY STAFF. SHE IS ALSO ACTIVE WITH [facility]. SHE REPORTS THE PT GOES BETWEEN A HOSPITAL BED, WHEEL CHAIR AND RECLINER AND REQUIRES A CLARKE LIFT. PT HAS A GUARDIAN, SHAHZAD GABRIEL AND A MOLST ON FILE PT IS ON CONTINUOUS TUBE FEEDS SINCE LAST DC, KEN REPORTS IT SEEMS TO BE GOING WELL AND EVERYONE HAS BEEN TRAINED AT THE . PT IS COVID-19 VACCINATED. CURRENT DC PLAN IS RETUNR TO THE SNF VIA [facility] KEN REPORTS IT CAN BE DIFFICULT TO TAKE PTS BACK ON THE WEEKEND HOWEVER THEY COULD DO IT IF NECESSARY
--- NOTE | 2021-12-30 16:12 | P.PNIM_ITS ---
Subjective Subjective Date of Service: 12/30/21 Interval History: Fever spike overnight. Culture sent Review of Systems Unable to obtain secondary to nonverbal status Physical Exam Vital Signs: Vital Signs: Last Vital Signs Temp 97.9 F 12/30/21 15:08 Pulse 76 12/30/21 15:08 Resp 18 12/30/21 15:08 BP 145/80 H 12/30/21 11:18 Pulse Ox 99 12/30/21 15:08 Oxygen Flow Rate 15 12/29/21 15:24 BMI result Body Mass Index 26.2 Const: Other: Somnolent but arouses to verbal stimuli Resp: Other: Diminished at bases with scattered rhonchi weak cough Cardio: Other: Soft nontender nondistended normoactive bowel sounds Objective Data Active Medications Acetaminophen (Acetaminophen Supp 650 Mg Supp.Rect) 650 mg [place] Q6H PRN PRN Reason: Pain, Mild (Pain Scale 1-3) Last Admin: 12/29/21 23:12 Dose: 650 mg Documented by: KIMBERLY Heparin Sodium (Porcine) (Heparin Sodium,Porcine 5,000 Unit/Ml Vial) 5,000 unit SUBCUT Q12H [facility] Last Admin: 12/30/21 08:58 Dose: 5,000 unit Documented by: JIGNA Lactated Ringer's (Lr) 1,000 mls @ 80 mls/hr IVCONT .[id number] [facility] Last Admin: 12/30/21 08:58 Dose: Not Given Documented by: JIGNA Non-Admin Reason: IV Running Dextrose/Lactated Ringer's (D5lr) 1,000 mls @ 80 mls/hr IVCONT .[id number] [facility] Last Admin: 12/30/21 12:25 Dose: 80 mls/hr Documented by: JIGNA Piperacillin Sod/Tazobactam (Sod 3.375 gm/ Sodium Chloride) 50 mls @ 100 mls/hr IV Q6H [facility] Last Infusion: 12/30/21 13:16 Dose: 0 mls/hr Documented by: JIGNA Ondansetron HCl (Ondansetron Hcl 4 Mg/2 Ml Vial) 4 mg IVPUSH Q8H PRN PRN Reason: Nausea and Vomiting Pharmacy Consult (Consult Rx Perform Med Rec) 1 each MISCELLANE ONCE PRN PRN Reason: Consult order Sodium Chloride (0.9 % Sodium Chloride Flush 3 Ml Syringe) 3 ml IVFLUSH QSHIFT [facility] Last Admin: 12/30/21 15:05 Dose: Not Given Documented by: JIGNA Non-Admin Reason: IV Running Labs CBC & Chem 7: 12/30/21 05:36 12/30/21 05:36 Labs: Laboratory Results - last 24 hr 12/29/21 12/29/21 12/29/21 15:47 15:47 23:07 WBC 8.1 MCV MCH MCHC RDW Plt Count MPV Immature Gran % (Auto) Neut % (Auto) Lymph % (Auto) [place] % (Auto) Eos % (Auto) Baso % (Auto) Lymph # (Auto) [place] # (Auto) Eos # (Auto) Baso # (Auto) Abs Immat Gran (auto) Absolute Neuts (auto) Absolute Nucleated RBC Nucleated RBC % (auto) Anion Gap Estim Creat Clear Calc Estimated GFR POC Glucose 76 Random Glucose Lactic Acid Calcium Influenza Type A (EULALIO) Negative Influenza Type B (EULALIO) Negative Influenza A & B Note See Note 12/30/21 12/30/21 12/30/21 05:36 05:36 07:24 WBC 15.5 H MCV 104.7 H MCH 34.5 H MCHC 33.0 RDW 12.9 Plt Count 186 MPV 11.0 Immature Gran % (Auto) 0.5 H Neut % (Auto) 80.7 H Lymph % (Auto) 12.2 L [place] % (Auto) 6.4 Eos % (Auto) 0.0 Baso % (Auto) 0.2 Lymph # (Auto) 1.9 [place] # (Auto) 1.0 Eos # (Auto) 0.0 Baso # (Auto) 0.0 Abs Immat Gran (auto) 0.07 H Absolute Neuts (auto) 12.5 H Absolute Nucleated RBC 0.000 Nucleated RBC % (auto) 0.0 Anion Gap 13 Estim Creat Clear Calc 95.9 Estimated GFR > 60 POC Glucose Random Glucose 92 Lactic Acid 1.3 Calcium 9.5 Influenza Type A (EULALIO) Influenza Type B (EULALIO) Influenza A & B Note Microbiology Microbiology Results: Microbiology 12/29/21 15:47 Blood Culture - Preliminary Blood - Venous Prelim: GPC Gram Stain only Assessment and Plan (1) Acute respiratory failure with hypoxia: Status: Acute (2) Bipolar 2 disorder: Status: Acute Plan 51-year-old female with developmental delay, chronically bed-bound presents to the hospital with hypoxia found to be hypoxic respiratory failure secondary to likely mucus plugging 1.Acute hypoxic respiratory failure(negative workup thus far) -continue empiric Zosyn -ask pulmonary input in am 2.Severe developmental delay/dysphagia -continue tube feeds/meds as outpatient -adjust as indicated DVT prophylaxis: Lovenox Will require additional hospital stay for further investigation into hypoxic respiratory failure Quality Stroke Does the patient have a stroke diagnosis?: No VTE Prior VTE?: No VTE Risk Level:: Medical - moderate - high VTE Device Contraindication: Treatment Not Indicated VTE Drug Contraindication: N/A - Med Ordered
[2021-12-31] MEDS: Piperacillin Sodium/Tazobactam 3.375 GM in 0.9 % Sodium Chloride 50 ML IV ×4 (00:10→18:34)
[2021-12-31] MEDS: 0.9 % Sodium Chloride Flush 3 ML SYRINGE IVFLUSH (00:11)
[2021-12-31] MEDS: Dextrose 5 % and Lactated Ring 1,000 ML 80 ML IVCONT ×2 (00:59→12:30)
[2021-12-31 01:45] LABS: Glucose, Whole Blood 116 mg/dL (60-115)
[2021-12-31 03:39] VITALS: BP 152/80; PULSE 71; RESP 18; TEMP 36.4; O2SAT 98
[2021-12-31 06:01] LABS: MANUAL DIFF FLAG NO
[2021-12-31 06:04] LABS: Basophils Percent Auto 0.2 % (0-2); Hematocrit 34.7 % (37.0-47.0); Hemoglobin 11.9 g/dl (12.0-16.0); Imm Gran Abs Auto 0.02 X10*3/uL (0.00-0.03); Imm Gran Pct Auto 0.2 % (0.0-0.4); Mean Corpuscular HGB Conc 34.3 g/dl (31.0-35.0); Mean Corpuscular Volume 102.1 fL (80.0-98.0); Monocytes Absolute Auto 0.7 X10*3/uL (0.1-1.2); Monocytes Percent Auto 7.1 % (2-11); Neutrophils Absolute Auto 6.8 x10*3/uL (2.0-8.3); Neutrophils Percent Auto 71.5 % (45-73); Platelet Count 186 X10*3/uL (160-400); Red Cell Distribution Width 12.6 % (11.0-16.0); White Blood Count 9.5 X10*3/uL (4.8-10.8)
[2021-12-31 06:44] LABS: Alanine Aminotransferase 10 U/L (0-31); Albumin Level 3.2 g/dL (3.5-5.0); Alkaline Phosphatase 86 U/L (39-117); Anion Gap 11 (12-20); Aspartate Amino Transferase 16 U/L (5-31); Bilirubin Total 1.3 mg/dL (0.0-1.0); Blood Urea Nitrogen 10 mg/dL (9-16); Calcium 9.3 mg/dL (8.4-10.2); Carbon Dioxide 26 mmol/L (22-29); Chloride 106 mmol/L (96-108); Creatinine Clr Calc Pharmacy 94.2; Estimated Glomerular Filt Rate > 60; Glucose Fasting 121 mg/dL (60-99); Potassium 3.9 mmol/L (3.3-5.1); Sodium 139 mmol/L (135-145); Total Protein 5.8 g/dL (6.5-8.0)
[2021-12-31 07:49] VITALS: BP 129/70; PULSE 69; RESP 16; TEMP 36.8; O2SAT 98
[2021-12-31] MEDS: Heparin Sodium,Porcine 5,000 UNIT/ML VIAL 5000 UNIT SUBCUT ×2 (08:46→21:48)
--- NOTE | 2021-12-31 10:29 | P.PNIM_ITS ---
Subjective Subjective Date of Service: 12/31/21 Interval History: No acute issues overnight. Remains afebrile Review of Systems Unable to obtain secondary to nonverbal status Physical Exam Vital Signs: Vital Signs: Last Vital Signs Temp 98.3 F 12/31/21 07:49 Pulse 69 12/31/21 07:49 Resp 16 12/31/21 07:49 BP 129/70 12/31/21 07:49 Pulse Ox 98 12/31/21 07:49 Oxygen Flow Rate 15 12/29/21 15:24 BMI result Body Mass Index 26.2 Const: Other: Somnolent but arouses to verbal stimuli Resp: Other: Diminished at bases with scattered rhonchi weak cough Cardio: Other: Soft nontender nondistended normoactive bowel sounds Objective Data Active Medications Acetaminophen (Acetaminophen Supp 650 Mg Supp.Rect) 650 mg IA Q6H PRN PRN Reason: Pain, Mild (Pain Scale 1-3) Last Admin: 12/29/21 23:12 Dose: 650 mg Documented by: KIMBERLY Heparin Sodium (Porcine) (Heparin Sodium,Porcine 5,000 Unit/Ml Vial) 5,000 unit SUBCUT Q12H [facility] Last Admin: 12/31/21 08:46 Dose: 5,000 unit Documented by: JIGNA Dextrose/Lactated Ringer's (D5lr) 1,000 mls @ 80 mls/hr IVCONT .[id number] [facility] Last Admin: 12/31/21 00:59 Dose: 80 mls/hr Documented by: LIDYA Piperacillin Sod/Tazobactam (Sod 3.375 gm/ Sodium Chloride) 50 mls @ 100 mls/hr IV Q6H [facility] Last Infusion: 12/31/21 06:28 Dose: 0 mls/hr Documented by: LIDYA Ondansetron HCl (Ondansetron Hcl 4 Mg/2 Ml Vial) 4 mg IVPUSH Q8H PRN PRN Reason: Nausea and Vomiting Pharmacy Consult (Consult Rx Perform Med Rec) 1 each MISCELLANE ONCE PRN PRN Reason: Consult order Sodium Chloride (0.9 % Sodium Chloride Flush 3 Ml Syringe) 3 ml IVFLUSH QSHIFT [facility] Last Admin: 12/31/21 07:18 Dose: Not Given Documented by: JIGNA Non-Admin Reason: IV Running Labs CBC & Chem 7: 12/31/21 05:53 12/31/21 05:53 Labs: Laboratory Results - last 24 hr 12/31/21 12/31/21 12/31/21 01:22 05:53 05:53 MCV 102.1 H MCH 35.0 H MCHC 34.3 RDW 12.6 Plt Count 186 MPV 10.0 Immature Gran % (Auto) 0.2 Neut % (Auto) 71.5 Lymph % (Auto) 21.0 [place] % (Auto) 7.1 Eos % (Auto) 0.0 Baso % (Auto) 0.2 Lymph # (Auto) 2.0 [place] # (Auto) 0.7 Eos # (Auto) 0.0 Baso # (Auto) 0.0 Abs Immat Gran (auto) 0.02 Absolute Neuts (auto) 6.8 Absolute Nucleated RBC 0.000 Nucleated RBC % (auto) 0.0 Anion Gap 11 L Estim Creat Clear Calc 94.2 Estimated GFR > 60 POC Glucose 116 H Fasting Glucose 121 H Calcium 9.3 Total Bilirubin 1.3 H AST 16 ALT 10 Alkaline Phosphatase 86 D Total Protein 5.8 L Albumin 3.2 L Microbiology Microbiology Results: Microbiology 12/30/21 07:00 Blood Culture - Preliminary Blood - Venous No growth after 24 hours. 12/30/21 06:50 Blood Culture - Preliminary Blood - Venous No growth after 24 hours. 12/29/21 15:47 Blood Culture - Preliminary Blood - Venous Gram positive cocci 12/29/21 15:47 Blood Culture - Preliminary Blood - Venous No growth after 24 hours. Assessment and Plan (1) Acute respiratory failure with hypoxia: Status: Acute (2) Bipolar 2 disorder: Status: Acute Plan 51-year-old female with developmental delay, chronically bed-bound presents to the hospital with hypoxia found to be hypoxic respiratory failure secondary to likely mucus plugging 1.Acute hypoxic respiratory failure(negative workup thus far) -continue empiric Zosyn -ask pulmonary input in am;query DC back to longterm 2.Severe developmental delay/dysphagia -continue tube feeds/meds as outpatient -adjust as indicated DVT prophylaxis: Lovenox Will require additional hospital stay for further investigation into hypoxic respiratory failure Quality Stroke Does the patient have a stroke diagnosis?: No VTE Prior VTE?: No VTE Risk Level:: Medical - moderate - high VTE Device Contraindication: Treatment Not Indicated VTE Drug Contraindication: N/A - Med Ordered
--- NOTE | 2021-12-31 11:40 | P.CONPL_ITS ---
History of Present Illness History of Present Illness Consult date: 12/31/21 Requesting physician: David Almeida Chief complaint: Hypoxic resp failure Narrative: 51 years old female from a intermediate, brought mainly because of the finding of hypoxemia. [place] : This is a 51-year-old female with history of developmental delay, bipolar disorder, tardive dyskinesia, who has had dysphagia, and now is on tube feedings with PEG tube. She is wheelchair bed-bound and has G-tube .? According to the intermediate director at bedside patient usually has difficulty clearing her secretions and has had mucus plugging on several occasion brought into the ED for the same.? Patient is nonverbal at bedside therefore unable to get much history from her.? According to the staff at bedside, patient became hypoxic and had difficulty around noontime yesterday. On arrival of EMS, patient was found to be hypoxic at 60%. On arrival to the ED patient noted to be hypoxic at 50% on 15 L of non- rebreather, patient was placed on BiPAP with improvement of her O2, patient is currently on 2 L /Mt . The reason for her becoming hypoxic is not clear, Patient was given 1 dose of Zosyn in the ER . More details not available, however it seems that this patient has been prone to pulmonary aspirations and mucus plugging in the past. Review of Systems Review of Systems: Yes Unobtainable due to mental condition PMFSH Past Medical History Medical History (Updated 12/31/21 @ 11:54 by Terell Millard MD) Bipolar 2 disorder Chronic constipation Developmental delay, severe Gastrostomy tube in place Hyperlipidemia Pulmonary emboli Tardive dyskinesia Social History Social History Household Members: Other Household Members Other:: intermediate Housing: Assisted Living Facility Do you presently have visiting nurse or other home services: Yes (lives in [facility]) Unable to assess alcohol history related to: Unknown Alcohol intake: unknown Patient Tobacco Use Status: Tobacco use Unknown Advance Directives: No Advance Directives Information Provided: No service: No Current occupational status: disabled Meds Allergies Allergy/AdvReac Type Severity Reaction Status Date / Time ceftriaxone [From ROCEPHIN] Allergy Unknown UNKNOWN Verified 12/03/21 08:55 mirtazapine [MIRTAZAPINE] Allergy Unknown HIVES Verified 12/03/21 08:55 Active Medications: Current Medications Acetaminophen (Acetaminophen Supp 650 Mg Supp.Rect) 650 mg [place] Q6H PRN PRN Reason: Pain, Mild (Pain Scale 1-3) Last Admin: 12/29/21 23:12 Dose: 650 mg Documented by: Heparin Sodium (Porcine) (Heparin Sodium,Porcine 5,000 Unit/Ml Vial) 5,000 unit SUBCUT Q12H [facility] Last Admin: 12/31/21 08:46 Dose: 5,000 unit Documented by: Dextrose/Lactated Ringer's (D5lr) 1,000 mls @ 80 mls/hr IVCONT .[id number] [facility] Last Admin: 12/31/21 00:59 Dose: 80 mls/hr Documented by: Piperacillin Sod/Tazobactam (Sod 3.375 gm/ Sodium Chloride) 50 mls @ 100 mls/hr IV Q6H [facility] Last Infusion: 12/31/21 06:28 Dose: Infused Documented by: Piperacillin Sod/Tazobactam (Sod 3.375 gm/ Sodium Chloride) 50 mls @ 100 mls/hr IV Q6H [facility] Ondansetron HCl (Ondansetron Hcl 4 Mg/2 Ml Vial) 4 mg IVPUSH Q8H PRN PRN Reason: Nausea and Vomiting Pharmacy Consult (Consult Rx Perform Med Rec) 1 each MISCELLANE ONCE PRN PRN Reason: Consult order Sodium Chloride (0.9 % Sodium Chloride Flush 3 Ml Syringe) 3 ml IVFLUSH QSHIFT [facility] Last Admin: 12/31/21 07:18 Dose: Not Given Documented by: Home Medications Medication Instructions Recorded Confirmed Last Taken Type acetaminophen 325 mg tablet 975 mg FEEDING TUBE TID 11/27/21 12/29/21 12/29/21 History clonazepam 0.5 mg tablet 1 tab FEEDING TUBE BID@0800,1400 11/27/21 12/29/21 12/28/21 History clonazepam 2 mg tablet 1 tab FEEDING TUBE BEDTIME 11/27/21 12/29/21 12/28/21 History clotrimazole 1 % topical cream 1 appl TOPICAL MOFR 11/27/21 12/29/21 12/27/21 History cyanocobalamin (vitamin B-12) 1 tab FEEDING TUBE DAILY 11/27/21 12/29/21 12/29/21 History 1,000 mcg tablet docusate sodium 50 mg/5 mL oral 100 mg FEEDING TUBE BID 11/27/21 12/29/21 12/29/21 History liquid (Docu) fluoxetine 10 mg capsule 1 cap FEEDING TUBE DAILY 11/27/21 12/29/21 12/29/21 History fluoxetine 20 mg capsule 1 cap FEEDING TUBE DAILY 11/27/21 12/29/21 12/29/21 History folic acid 1 mg tablet 1 tab FEEDING TUBE DAILY 11/27/21 12/29/21 12/29/21 History ketoconazole 2 % shampoo 1 appl TOPICAL DAILY 11/27/21 12/29/21 12/29/21 History melatonin 1 mg tablet 1 tab FEEDING TUBE BEDTIME 11/27/21 12/29/21 12/28/21 History sennosides 8.8 mg/5 mL oral syrup 17.6 mg FEEDING TUBE DAILY 11/27/21 12/29/21 12/29/21 History (senna) simvastatin 20 mg tablet 1 tab FEEDING TUBE BEDTIME 11/27/21 12/29/21 12/28/21 History trazodone 50 mg tablet 1 tab FEEDING TUBE BEDTIME 11/27/21 12/29/21 12/28/21 History triamcinolone acetonide 0.1 % 1 applic TOPICAL DAILY 11/27/21 12/29/21 12/29/21 History topical cream valproic acid (as sodium salt) 250 1,500 mg PO DAILY 11/27/21 12/29/21 12/29/21 History mg/5 mL oral solution valproic acid (as sodium salt) 250 1,750 mg FEEDING TUBE BEDTIME 11/27/21 12/29/21 12/28/21 History mg/5 mL oral solution cranberry 400 mg capsule 400 mg FEEDING TUBE DAILY 12/29/21 12/29/21 12/29/21 History Physical Exam Vital Signs: Vital Signs: Last Vital Signs Temp 98.3 F 12/31/21 07:49 Pulse 69 12/31/21 07:49 Resp 16 12/31/21 07:49 BP 129/70 12/31/21 07:49 Pulse Ox 98 12/31/21 07:49 Oxygen Flow Rate 15 12/29/21 15:24 BMI result Body Mass Index 26.2 Patient is the a nonverbal, she has generalized stiffness of the body. Oral examination reveals her teeth to be in poor hygienic condition. She does not open her mouth. Chest examination reveals percussion note to be resonant, breath sounds are somewhat distant. A few inspiratory crepitations heard over the left base. Cardiovascular examination is within normal limits. Abdomen has PEG tube in place in the epigastric area it is flat without any palpable mass. Const: General: healthy appearing, comfortable, no acute distress, alert and awake Orientation/consciousness: patient oriented x3 HEENT: Head: Yes normal to inspection General nose exam: No nasal polyps present and No nasal discharge present Face and sinus: Yes sinuses nontender Mouth: oropharynx normal Throat: Yes posterior oropharynx normal Eyes: General: appearance normal, both eyes and all related structures Neck: Neck: Yes normal visual inspection, Yes no lymphadenopathy, Yes trachea midline and Yes no JVD Thyroid: Thyroid normal Cardio: Palpation: normal PMI Rate: regular rate Rhythm: regular rhythm Heart sounds: Gallop heart sound present and Murmur heart sound present Peripheral pulses: Peripheral pulses 2+ throughout GI: Palpation (GI): Soft to palpation, Tenderness to palpation present (GI), No hepatosplenomegaly present and Palpable mass present Auscultation: normal bowel sounds Back/Spine/Pelvis: Thoracic/Lumbar Spine: thoracic and lumbar spine normal to inspection Skin: General skin exam: no rashes or lesions noted Neuro: General: patient oriented x3 and no focal motor deficits Cranial nerves: Yes CN's II-XII intact bilaterally Extrem: General: Yes normal to inspection, Yes no clubbing, cyanosis or edema and Yes no calf tenderness Psych: Speech and movement: Normal speech and movement present Results Laboratory Findings CBC and BMP: 12/31/21 05:53 12/31/21 05:53 ABG, PT/INR, D-dimer: PT/INR, D-dimer PT 10.7 SEC (9.9-13.0) 12/29/21 15:35 INR 0.9 (0.9-1.1) 12/29/21 15:35 Abnormal lab findings: Abnormal Labs 12/29/21 12/29/21 12/29/21 15:35 15:39 15:47 WBC RBC 4.07 L Hgb Hct MCV 103.9 H MCH 34.4 H Immature Gran % (Auto) Neut % (Auto) Lymph % (Auto) 44.0 H Abs Immat Gran (auto) Absolute Neuts (auto) VBG pH 7.31 L VBG HCO3 39 H Carbon Dioxide 35 H Anion Gap 11 L BUN 42 H POC Glucose Fasting Glucose Total Bilirubin Alkaline Phosphatase 128 H Total Protein Albumin 12/30/21 12/30/21 12/31/21 05:36 05:36 01:22 WBC 15.5 H RBC 3.59 L Hgb Hct MCV 104.7 H MCH 34.5 H Immature Gran % (Auto) 0.5 H Neut % (Auto) 80.7 H Lymph % (Auto) 12.2 L Abs Immat Gran (auto) 0.07 H Absolute Neuts (auto) 12.5 H VBG pH VBG HCO3 Carbon Dioxide Anion Gap BUN 25 H POC Glucose 116 H Fasting Glucose Total Bilirubin Alkaline Phosphatase Total Protein Albumin 12/31/21 12/31/21 05:53 05:53 WBC RBC 3.40 L Hgb 11.9 L Hct 34.7 L MCV 102.1 H MCH 35.0 H Immature Gran % (Auto) Neut % (Auto) Lymph % (Auto) Abs Immat Gran (auto) Absolute Neuts (auto) VBG pH VBG HCO3 Carbon Dioxide Anion Gap 11 L BUN POC Glucose Fasting Glucose 121 H Total Bilirubin 1.3 H Alkaline Phosphatase Total Protein 5.8 L Albumin 3.2 L Microbiology: Microbiology 12/30/21 07:00 Blood - Venous Blood Culture - Preliminary No growth after 24 hours. 12/30/21 06:50 Blood - Venous Blood Culture - Preliminary No growth after 24 hours. 12/29/21 15:47 Blood - Venous Blood Culture - Preliminary Gram positive cocci 12/29/21 15:47 Blood - Venous Blood Culture - Preliminary No growth after 24 hours. Diagnostic Findings Chest x-ray: report reviewed and image reviewed Assessment and Plan (1) Developmental delay, severe: Status: Acute (2) Acute respiratory failure with hypoxia: Status: Acute (3) Aspiration pneumonia: Status: Acute Plan This patient is a definite candidate for recurrent pulmonary aspirations, and mucus plugging. She is also candidate for basilar atelectasis. At present the chest x-ray does not show any clear-cut pneumonia. However given the fact that she developed hypoxemia relatively quickly, it seems that she may have aspirated food particles or her own secretions. Recc . I think we should empirically treat her for pulmonary aspiration/pneumonia. Can start her on IV Zosyn, and as soon as she is improved and stable she can be continued on Augmentin suspension for 7- 10 days. Continue oxygen supplementation and wean off slowly if O2 sat remain above 90%. DuoNeb updraft Q 4-6 hours p.r.n. or increased respiratory distress. Thank you very much for asking me to see this patient. Procedures Date of Service Date of Service: 12/31/21
[2021-12-31 12:00] VITALS: BP 155/87; PULSE 77; RESP 16; TEMP 37.2; O2SAT 98
--- NOTE | 2021-12-31 12:06 | MHC.CM.PN ---
CARE TENDERS [facility]NA UPDATED IN [facility]. NO PLAN FOR DC TODAY.
[2021-12-31 15:15] VITALS: BP 168/80; PULSE 102; RESP 18; TEMP 37.7; O2SAT 98
[2021-12-31 20:00] VITALS: BP 149/79; PULSE 85; RESP 18; TEMP 37.7; O2SAT 96
[2021-12-31 23:32] VITALS: BP 153/89; PULSE 95; RESP 18; TEMP 37.2; O2SAT 97
[2022-01-01] MEDS: Piperacillin Sodium/Tazobactam 3.375 GM in 0.9 % Sodium Chloride 50 ML IV ×4 (00:18→18:17)
[2022-01-01 04:00] VITALS: BP 154/88; PULSE 80; RESP 17; TEMP 37; O2SAT 98
[2022-01-01 06:04] LABS: MANUAL DIFF FLAG NO
[2022-01-01 06:19] LABS: Basophils Percent Auto 0.2 % (0-2); Eosinophils Percent Auto 0.1 % (0-4); Hematocrit 35.3 % (37.0-47.0); Imm Gran Abs Auto 0.02 X10*3/uL (0.00-0.03); Imm Gran Pct Auto 0.2 % (0.0-0.4); Lymphocytes Absolute Auto 1.8 X10*3/uL (1.2-4.9); Lymphocytes Percent Auto 22.4 % (20-40); Mean Corpuscular Hemoglobin 34.6 pg (27.0-33.0); Mean Corpuscular Volume 101.7 fL (80.0-98.0); Mean Platelet Volume 10.1 fL (9.4-12.3); Monocytes Absolute Auto 0.8 X10*3/uL (0.1-1.2); Monocytes Percent Auto 9.6 % (2-11); Neutrophils Absolute Auto 5.6 x10*3/uL (2.0-8.3); Neutrophils Percent Auto 67.5 % (45-73); Platelet Count 200 X10*3/uL (160-400); Red Blood Count 3.47 X10*6/uL (4.20-5.50); Red Cell Distribution Width 12.3 % (11.0-16.0); White Blood Count 8.2 X10*3/uL (4.8-10.8)
[2022-01-01 06:40] LABS: Alanine Aminotransferase 10 U/L (0-31); Albumin Level 3.2 g/dL (3.5-5.0); Alkaline Phosphatase 80 U/L (39-117); Anion Gap 12 (12-20); Aspartate Amino Transferase 17 U/L (5-31); Bilirubin Total 1.3 mg/dL (0.0-1.0); Blood Urea Nitrogen 8 mg/dL (9-16); Calcium 9.4 mg/dL (8.4-10.2); Carbon Dioxide 26 mmol/L (22-29); Chloride 106 mmol/L (96-108); Estimated Glomerular Filt Rate > 60; Glucose Fasting 95 mg/dL (60-99); Potassium 3.7 mmol/L (3.3-5.1); Sodium 140 mmol/L (135-145); Total Protein 5.9 g/dL (6.5-8.0)
[2022-01-01 06:56] VITALS: BP 150/80; PULSE 84; RESP 18; TEMP 36.9; O2SAT 99
[2022-01-01] MEDS: Heparin Sodium,Porcine 5,000 UNIT/ML VIAL 5000 UNIT SUBCUT ×2 (08:16→20:26)
[2022-01-01] MEDS: 0.9 % Sodium Chloride Flush 3 ML SYRINGE IVFLUSH ×3 (08:17→23:03)
[2022-01-01 11:04] VITALS: BP 152/90; PULSE 74; RESP 16; TEMP 36.6; O2SAT 94
--- NOTE | 2022-01-01 12:07 | HO.PM.IMPN ---
Subjective Subjective Date of Service: 01/01/22 Interval History: No acute issues overnight. Remains afebrile Review of Systems Unable to obtain secondary to nonverbal status Physical Exam Vital Signs: Vital Signs: Last Vital Signs Temp 98 F 01/01/22 11:04 Pulse 74 01/01/22 11:04 Resp 16 01/01/22 11:04 BP 152/90 H 01/01/22 11:04 Pulse Ox 94 01/01/22 11:04 Oxygen Flow Rate 15 12/29/21 15:24 BMI result Body Mass Index 26.2 Const: Other: Somnolent but arouses to verbal stimuli Resp: Other: Diminished at bases with scattered rhonchi weak cough Cardio: Other: Soft nontender nondistended normoactive bowel sounds Objective Data Active Medications Acetaminophen (Acetaminophen Supp 650 Mg Supp.Rect) 650 mg [place] Q6H PRN PRN Reason: Pain, Mild (Pain Scale 1-3) Last Admin: 12/29/21 23:12 Dose: 650 mg Documented by: KIMBERLY Heparin Sodium (Porcine) (Heparin Sodium,Porcine 5,000 Unit/Ml Vial) 5,000 unit SUBCUT Q12H [facility] Last Admin: 01/01/22 08:16 Dose: 5,000 unit Documented by: DAGOBERTO Piperacillin Sod/Tazobactam (Sod 3.375 gm/ Sodium Chloride) 50 mls @ 100 mls/hr IV Q6H [facility] Last Infusion: 01/01/22 06:43 Dose: 0 mls/hr Documented by: GIOVANNA Ondansetron HCl (Ondansetron Hcl 4 Mg/2 Ml Vial) 4 mg IVPUSH Q8H PRN PRN Reason: Nausea and Vomiting Pharmacy Consult (Consult Rx Perform Med Rec) 1 each MISCELLANE ONCE PRN PRN Reason: Consult order Sodium Chloride (0.9 % Sodium Chloride Flush 3 Ml Syringe) 3 ml IVFLUSH QSHIFT [facility] Last Admin: 01/01/22 08:17 Dose: 3 ml Documented by: DAGOBERTO Labs CBC & Chem 7: 01/01/22 05:52 01/01/22 05:52 Labs: Laboratory Results - last 24 hr 01/01/22 01/01/22 05:52 05:52 MCV 101.7 H MCH 34.6 H MCHC 34.0 RDW 12.3 Plt Count 200 MPV 10.1 Immature Gran % (Auto) 0.2 Neut % (Auto) 67.5 Lymph % (Auto) 22.4 [place] % (Auto) 9.6 Eos % (Auto) 0.1 Baso % (Auto) 0.2 Lymph # (Auto) 1.8 [place] # (Auto) 0.8 Eos # (Auto) 0.0 Baso # (Auto) 0.0 Abs Immat Gran (auto) 0.02 Absolute Neuts (auto) 5.6 Absolute Nucleated RBC 0.000 Nucleated RBC % (auto) 0.0 Anion Gap 12 Estim Creat Clear Calc 91.0 Estimated GFR > 60 Fasting Glucose 95 Calcium 9.4 Total Bilirubin 1.3 H AST 17 ALT 10 Alkaline Phosphatase 80 Total Protein 5.9 L Albumin 3.2 L Microbiology Microbiology Results: Microbiology 12/30/21 07:00 Blood Culture - Preliminary Blood - Venous No growth after 48 hours. 12/30/21 06:50 Blood Culture - Preliminary Blood - Venous No growth after 48 hours. 12/29/21 15:47 Blood Culture - Preliminary Blood - Venous Gram positive cocci Coag negative Staphylococcus 12/29/21 15:47 Blood Culture - Preliminary Blood - Venous No growth after 48 hours. Assessment and Plan (1) Acute respiratory failure with hypoxia: Status: Acute (2) Developmental delay, severe: Status: Acute Plan 51-year-old female with developmental delay, chronically bed-bound presents to the hospital with hypoxia found to be hypoxic respiratory failure secondary to likely mucus plugging 1.Acute hypoxic respiratory failure(negative workup thus far) -continue empiric Zosyn(4)... He switch to Augmentin upon discharge -ask pulmonary input in am;[facility] 2.Severe developmental delay/dysphagia -continue tube feeds/meds as outpatient -adjust as indicated DVT prophylaxis: Lovenox Will require additional hospital stay for further investigation into hypoxic respiratory failure Quality Stroke Does the patient have a stroke diagnosis?: No VTE Prior VTE?: No VTE Risk Level:: Medical - moderate - high VTE Device Contraindication: Treatment Not Indicated VTE Drug Contraindication: N/A - Med Ordered
[2022-01-01 15:20] VITALS: BP 132/84; PULSE 113; RESP 18; TEMP 37; O2SAT 96
[2022-01-01 19:43] VITALS: BP 126/90; PULSE 107; RESP 18; O2SAT 98
[2022-01-01 23:46] VITALS: BP 150/86; PULSE 89; RESP 18; TEMP 36.2; O2SAT 95
[2022-01-02] MEDS: Piperacillin Sodium/Tazobactam 3.375 GM in 0.9 % Sodium Chloride 50 ML IV ×5 (00:28→23:51)
[2022-01-02 03:36] VITALS: BP 139/79; PULSE 89; RESP 17; TEMP 36.1; O2SAT 98
[2022-01-02 06:23] LABS: MANUAL DIFF FLAG NO
[2022-01-02 06:28] LABS: Basophils Percent Auto 0.1 % (0-2); Eosinophils Percent Auto 0.1 % (0-4); Hematocrit 38.3 % (37.0-47.0); Imm Gran Abs Auto 0.02 X10*3/uL (0.00-0.03); Imm Gran Pct Auto 0.2 % (0.0-0.4); Lymphocytes Absolute Auto 1.9 X10*3/uL (1.2-4.9); Lymphocytes Percent Auto 21.4 % (20-40); Mean Corpuscular HGB Conc 33.9 g/dl (31.0-35.0); Mean Corpuscular Hemoglobin 34.5 pg (27.0-33.0); Mean Corpuscular Volume 101.6 fL (80.0-98.0); Mean Platelet Volume 9.8 fL (9.4-12.3); Monocytes Percent Auto 10.9 % (2-11); Neutrophils Percent Auto 67.3 % (45-73); Platelet Count 268 X10*3/uL (160-400); Red Blood Count 3.77 X10*6/uL (4.20-5.50); Red Cell Distribution Width 12.7 % (11.0-16.0); White Blood Count 8.9 X10*3/uL (4.8-10.8)
[2022-01-02 06:49] VITALS: BP 148/72; PULSE 75; RESP 18; TEMP 36.6; O2SAT 91
[2022-01-02 09:07] LABS: Alanine Aminotransferase 11 U/L (0-31); Albumin Level 3.4 g/dL (3.5-5.0); Alkaline Phosphatase 85 U/L (39-117); Anion Gap 10 (12-20); Aspartate Amino Transferase 13 U/L (5-31); Bilirubin Total 0.8 mg/dL (0.0-1.0); Calcium 9.8 mg/dL (8.4-10.2); Carbon Dioxide 29 mmol/L (22-29); Chloride 109 mmol/L (96-108); Creatinine Clr Calc Pharmacy 81.3; Estimated Glomerular Filt Rate > 60; Glucose Fasting 153 mg/dL (60-99); Potassium 4.3 mmol/L (3.3-5.1); Sodium 144 mmol/L (135-145); Total Protein 6.3 g/dL (6.5-8.0)
[2022-01-02 09:47] LABS: Blood Urea Nitrogen 18 mg/dL (9-16)
[2022-01-02] MEDS: Heparin Sodium,Porcine 5,000 UNIT/ML VIAL 5000 UNIT SUBCUT ×2 (10:39→21:27)
[2022-01-02] MEDS: 0.9 % Sodium Chloride Flush 3 ML SYRINGE IVFLUSH ×3 (10:46→21:27)
[2022-01-02 11:02] VITALS: BP 142/70; PULSE 82; RESP 18; TEMP 36.6; O2SAT 91
--- NOTE | 2022-01-02 14:55 | HO.PM.IMPN ---
Subjective Subjective Date of Service: 01/02/22 Interval History: No acute issues overnight. Remains afebrile Review of Systems Unable to obtain secondary to nonverbal status Physical Exam Vital Signs: Vital Signs: Last Vital Signs Temp 97.9 F 01/02/22 11:02 Pulse 82 01/02/22 11:02 Resp 18 01/02/22 11:02 BP 142/70 H 01/02/22 11:02 Pulse Ox 91 L 01/02/22 11:02 Oxygen Flow Rate 15 12/29/21 15:24 BMI result Body Mass Index 26.2 Const: Other: Somnolent but arouses to verbal stimuli Resp: Other: Diminished at bases with scattered rhonchi weak cough Cardio: Other: Soft nontender nondistended normoactive bowel sounds Objective Data Active Medications Acetaminophen (Acetaminophen Supp 650 Mg Supp.Rect) 650 mg MA Q6H PRN PRN Reason: Pain, Mild (Pain Scale 1-3) Last Admin: 12/29/21 23:12 Dose: 650 mg Documented by: KIMBERLY Heparin Sodium (Porcine) (Heparin Sodium,Porcine 5,000 Unit/Ml Vial) 5,000 unit SUBCUT Q12H [facility] Last Admin: 01/02/22 10:39 Dose: 5,000 unit Documented by: KALEIGH Piperacillin Sod/Tazobactam (Sod 3.375 gm/ Sodium Chloride) 50 mls @ 100 mls/hr IV Q6H [facility] Last Infusion: 01/02/22 13:52 Dose: 0 mls/hr Documented by: KALEIGH Ondansetron HCl (Ondansetron Hcl 4 Mg/2 Ml Vial) 4 mg IVPUSH Q8H PRN PRN Reason: Nausea and Vomiting Pharmacy Consult (Consult Rx Perform Med Rec) 1 each MISCELLANE ONCE PRN PRN Reason: Consult order Sodium Chloride (0.9 % Sodium Chloride Flush 3 Ml Syringe) 3 ml IVFLUSH QSHIFT [facility] Last Admin: 01/02/22 10:46 Dose: 3 ml Documented by: KALEIGH Labs CBC & Chem 7: 01/02/22 05:53 01/02/22 05:53 Labs: Laboratory Results - last 24 hr 01/02/22 01/02/22 05:53 05:53 MCV 101.6 H MCH 34.5 H MCHC 33.9 RDW 12.7 Plt Count 268 D MPV 9.8 Immature Gran % (Auto) 0.2 Neut % (Auto) 67.3 Lymph % (Auto) 21.4 [place] % (Auto) 10.9 Eos % (Auto) 0.1 Baso % (Auto) 0.1 Lymph # (Auto) 1.9 [place] # (Auto) 1.0 Eos # (Auto) 0.0 Baso # (Auto) 0.0 Abs Immat Gran (auto) 0.02 Absolute Neuts (auto) 6.0 Absolute Nucleated RBC 0.000 Nucleated RBC % (auto) 0.0 Anion Gap 10 L Estim Creat Clear Calc 81.3 Estimated GFR > 60 Fasting Glucose 153 H Calcium 9.8 Total Bilirubin 0.8 AST 13 ALT 11 Alkaline Phosphatase 85 Total Protein 6.3 L Albumin 3.4 L Microbiology Microbiology Results: Microbiology 12/29/21 15:47 Blood Culture - Final Blood - Venous Enterococcus faecalis Coag negative Staphylococcus Assessment and Plan (1) Acute respiratory failure with hypoxia: Status: Acute (2) Aspiration pneumonia: Status: Acute (3) Developmental delay, severe: Status: Acute Plan 51-year-old female with developmental delay, chronically bed-bound presents to the hospital with hypoxia found to be hypoxic respiratory failure secondary to likely mucus plugging 1.Acute hypoxic respiratory failure(negative workup thus far) -continue empiric Zosyn(5)... He switch to Augmentin upon discharge -ask pulmonary input in am;query DC back to detention 2.Severe developmental delay/dysphagia -continue tube feeds/meds as outpatient -adjust as indicated DVT prophylaxis: Lovenox Will require additional hospital stay for further investigation into hypoxic respiratory failure Quality Stroke Does the patient have a stroke diagnosis?: No VTE Prior VTE?: No VTE Risk Level:: Medical - moderate - high VTE Device Contraindication: Treatment Not Indicated VTE Drug Contraindication: N/A - Med Ordered
[2022-01-02 15:23] VITALS: BP 136/93; PULSE 116; RESP 18; TEMP 36.6; O2SAT 94
[2022-01-02 19:09] VITALS: BP 132/74; PULSE 117; RESP 18; TEMP 36.7; O2SAT 92
[2022-01-02 23:55] VITALS: BP 145/90; PULSE 117; RESP 17; TEMP 36.4; O2SAT 94
[2022-01-03] VITALS (7 sets, daily range): BP systolic 97–152; BP diastolic 57–117; PULSE 106–126; RESP 14–18; TEMP 36.4–37.8; O2SAT 95–100
--- NOTE | 2022-01-03 | ECG_ITS ---
Test Reason : md order Blood Pressure : / mmHG Vent. Rate : 138 BPM Atrial Rate : 138 BPM P-R Int : 112 ms QRS Dur : 066 ms QT Int : 306 ms P-R-T Axes : 073 -27 033 degrees QTc Int : 463 ms Artifact in tracing Poor data quality, interpretation may be adversely affected possible sinus tachycardia Nonspecific ST and T wave abnormality When compared with ECG of 29-DEC-2021 15:26, due to quality, cannot compare Referred By: Wilian Eng Electronically Signed By:TAO HYATT
[2022-01-03] MEDS: Acetaminophen Supp 650 MG SUPP.RECT PR ×2 (00:27→19:22)
[2022-01-03] MEDS: Piperacillin Sodium/Tazobactam 3.375 GM in 0.9 % Sodium Chloride 50 ML IV ×4 (05:41→23:58)
[2022-01-03] MEDS: Heparin Sodium,Porcine 5,000 UNIT/ML VIAL 5000 UNIT SUBCUT ×2 (09:05→22:24)
[2022-01-03] MEDS: 0.9 % Sodium Chloride Flush 3 ML SYRINGE IVFLUSH ×3 (09:06→22:47)
--- NOTE | 2022-01-03 09:57 | PM.DS ---
DS: Providers Provider Date of Service: 01/03/22 Date of admission: 12/29/21 20:18 Date of discharge: 01/03/22 Primary care physician: Carlo Das MD Consults: 12/31/21 09:43 Consult to Pulmonology Routine Consulting Provider: Terell Millard Reason for consultation: Hypoxia...query mucus plugging DS: Diagnosis Discharge Diagnosis (1) Acute respiratory failure with hypoxia: Status: Acute (2) Aspiration pneumonia: Status: Acute (3) Developmental delay, severe: Status: Acute DS: Summary Hospital Course Hospital Course: This is a 51-year-old female with history of developmental delay, bipolar disorder, tardive dyskinesia, who comes in from [facility] is wheelchair bed-bound and G-tube dependent presents with hypoxia.? According to the [facility] director at bedside patient usually has difficulty clearing her secretions and has had mucus plugging on several occasion brought into the ED for the same.? Patient is nonverbal at bedside therefore unable to get much history from her.? According to the staff at bedside, patient became hypoxic and had difficulty around noontime, on arrival of EMS, patient was found to be hypoxic at 60%. On arrival to the ED patient noted to be hypoxic at 50% on 15 L of non-rebreather, patient was placed on BiPAP with improvement of her O2, patient is currently on 2 L satting 100%. Labs are significant for WBC count of 8.1, pH of 7.31, labs otherwise unremarkable, chest x-ray negative Hospital course Patient admitted started on IV Zosyn and Pulmonary consult placed. Pulmonary's input was that this is likely chronic microaspiration and the patient should complete of course of Zosyn in the hospital followed by oral Augmentin in the outpatient side. She continued to be stable. Day of discharge is medically acceptable for transfer back to [facility] Time Spent with Patient Time attestation: Total time spent providing and/or coordinating discharge services: Discharge coordination time: Greater than 30 minutes Quality: Safe Use of Opioids Does Pt have an Active Cancer Diagnosis on the Problem List?: No Quality: Stroke Does the patient have a stroke diagnosis?: No Physical Exam Vital Signs: Vital Signs: Last Vital Signs Temp 98.3 F 01/03/22 07:47 Pulse 113 H 01/03/22 07:47 Resp 18 01/03/22 07:47 BP 147/85 H 01/03/22 07:47 Pulse Ox 98 01/03/22 07:47 Oxygen Flow Rate 15 12/29/21 15:24 BMI result Body Mass Index 26.2 Const: Other: Somnolent but arouses to verbal stimuli Resp: Other: Diminished at bases with scattered rhonchi weak cough Cardio: Other: Soft nontender nondistended normoactive bowel sounds DS: Data Data Completed and Pending Labs on day of discharge: Preliminary micro results at discharge 12/30/21 07:00 Blood Culture - Preliminary Blood - Venous No growth after 48 hours. 12/30/21 06:50 Blood Culture - Preliminary Blood - Venous No growth after 48 hours. 12/29/21 15:47 Blood Culture - Preliminary Blood - Venous No growth after 48 hours. Discharge Plan Discharge Patient Disposition: Xfer Other Discharge Diagnosis: Acute hypoxic respiratory failure secondary to chronic aspiration Referrals: Carlo Das MD [Primary Care Provider] - 1 Week Discharge Medications: New amoxicillin-pot clavulanate 250-62.5 mg/5 mL suspension for reconstitution 17.5 ml feeding tube BID 10 Days Qty: 350 0RF Continued docusate sodium [Docu] 50 mg/5 mL liquid 100 mg feeding tube BID 0RF acetaminophen 325 mg tablet 975 mg feeding tube TID 0RF ketoconazole 2 % shampoo 1 appl topical DAILY 0RF trazodone 50 mg tablet 1 tab feeding tube BEDTIME 0RF clonazepam 0.5 mg tablet 1 tab feeding tube BID@0800,1400 0RF cyanocobalamin (vitamin B-12) 1,000 mcg tablet 1 tab feeding tube DAILY 0RF sennosides [senna] 8.8 mg/5 mL syrup 17.6 mg feeding tube DAILY 0RF triamcinolone acetonide 0.1 % cream 1 applic topical DAILY 0RF simvastatin 20 mg tablet 1 tab feeding tube BEDTIME 0RF clonazepam 2 mg tablet 1 tab feeding tube BEDTIME 0RF fluoxetine 10 mg capsule 1 cap feeding tube DAILY 0RF folic acid 1 mg tablet 1 tab feeding tube DAILY 0RF fluoxetine 20 mg capsule 1 cap feeding tube DAILY 0RF clotrimazole 1 % cream 1 appl topical MOFR 0RF melatonin 1 mg tablet 1 tab feeding tube BEDTIME 0RF valproic acid (as sodium salt) 250 mg/5 mL solution 1,750 mg feeding tube BEDTIME 0RF valproic acid (as sodium salt) 250 mg/5 mL solution 1,500 mg PO DAILY 0RF cranberry 400 mg Capsule 400 mg feeding tube DAILY 0RF Rx Instructions: administer with a meal Discharge Orders: Discharge Order (Routine); Ordered 01/03/22 Ordered By: David Almeida Stand Alone Forms: Patient Portal Discharge page Care Plan Goals: Complete course of Augmentin via G-tube Health Concerns: Resume all previous therapies and medication Plan of Treatment: Follow-up with PCP as scheduled Assessment: See discharge summary
--- NOTE | 2022-01-03 13:34 | MHC.CM.PN ---
PATIENT RETURNING HOME TODAY WITH RESUMPTION OF HER [facility]. RN AWARE OF PLAN. IMM 01/03 IN CHART
[2022-01-03] MEDS: 0.9 % Sodium Chloride 500 ML IV (20:27)
[2022-01-03 20:40] LABS: Lactic Acid 0.8 mmol/L (0.5-2.0)
[2022-01-04] VITALS (7 sets, daily range): BP systolic 133–193; BP diastolic 79–105; PULSE 100–127; RESP 16–22; TEMP 35.7–37.9; O2SAT 96–100; BMI 26.2
[2022-01-04] MEDS: Piperacillin Sodium/Tazobactam 3.375 GM in 0.9 % Sodium Chloride 50 ML IV ×4 (06:10→23:48)
[2022-01-04] MEDS: Heparin Sodium,Porcine 5,000 UNIT/ML VIAL 5000 UNIT SUBCUT ×2 (08:36→20:32)
[2022-01-04] MEDS: 0.9 % Sodium Chloride Flush 3 ML SYRINGE IVFLUSH ×3 (08:37→23:45)
[2022-01-04] MEDS: vancomycin HCL 1,250 MG in 0.9 % Sodium Chloride 250 ML 166.67 MG IV (08:37)
--- NOTE | 2022-01-04 12:22 | HO.PM.IMPN ---
Subjective Subjective Date of Service: 01/04/22 Interval History: No acute issues overnight. Tachycardic without fever Review of Systems Unable to obtain secondary to nonverbal status Physical Exam Vital Signs: Vital Signs: Last Vital Signs Temp 100.2 F 01/04/22 11:49 Pulse 126 H 01/04/22 11:49 Resp 22 H 01/04/22 11:49 BP 140/88 H 01/04/22 11:49 Pulse Ox 100 01/04/22 11:49 Oxygen Flow Rate 15 12/29/21 15:24 BMI result Body Mass Index 26.2 Const: Other: Somnolent but arouses to verbal stimuli Resp: Other: Diminished at bases with scattered rhonchi weak cough Cardio: Other: Soft nontender nondistended normoactive bowel sounds Objective Data Active Medications Acetaminophen (Acetaminophen Supp 650 Mg Supp.Rect) 650 mg [place] Q6H PRN PRN Reason: Pain, Mild (Pain Scale 1-3) Last Admin: 01/03/22 19:22 Dose: 650 mg Documented by: KALEIGH Heparin Sodium (Porcine) (Heparin Sodium,Porcine 5,000 Unit/Ml Vial) 5,000 unit SUBCUT Q12H [facility] Last Admin: 01/04/22 08:36 Dose: 5,000 unit Documented by: HALI Piperacillin Sod/Tazobactam (Sod 3.375 gm/ Sodium Chloride) 50 mls @ 100 mls/hr IV Q6H [facility] Last Infusion: 01/04/22 06:44 Dose: 0 mls/hr Documented by: HALI Vancomycin HCl 1,000 mg/ (Sodium Chloride) 270 mls @ 270 mls/hr IV Q12H [facility] Ondansetron HCl (Ondansetron Hcl 4 Mg/2 Ml Vial) 4 mg IVPUSH Q8H PRN PRN Reason: Nausea and Vomiting Pharmacy Consult (Consult Rx Perform Med Rec) 1 each MISCELLANE ONCE PRN PRN Reason: Consult order Pharmacy Consult (Consult Rx Vancomycin Dosing) 1 each MISCELLANE DAILY PRN PRN Reason: Consult order Sodium Chloride (0.9 % Sodium Chloride Flush 3 Ml Syringe) 3 ml IVFLUSH QSHIFT [facility] Last Admin: 01/04/22 08:37 Dose: 3 ml Documented by: HALI Labs CBC & Chem 7: 01/02/22 05:53 01/02/22 05:53 Labs: Laboratory Results - last 24 hr 01/03/22 20:25 Lactic Acid 0.8 Microbiology Microbiology Results: Microbiology 12/30/21 07:00 Blood Culture - Final Blood - Venous No growth after 5 days. 12/30/21 06:50 Blood Culture - Final Blood - Venous No growth after 5 days. 12/29/21 15:47 Blood Culture - Final Blood - Venous No growth after 5 days. Assessment and Plan (1) Acute respiratory failure with hypoxia: Status: Acute (2) Chronic constipation: Status: Acute Plan 51-year-old female with developmental delay, chronically bed-bound presents to the hospital with hypoxia found to be hypoxic respiratory failure secondary to likely mucus plugging 1.Acute hypoxic respiratory failure(negative workup thus far) -continue empiric Zosyn(5)... add Vanco secondary to por BC(/ enterococcus) -ID consult 2.Severe developmental delay/dysphagia -continue tube feeds/meds as outpatient -adjust as indicated DVT prophylaxis: Lovenox Will require additional hospital stay for further investigation into hypoxic respiratory failure Quality Stroke Does the patient have a stroke diagnosis?: No VTE Prior VTE?: No VTE Risk Level:: Medical - moderate - high VTE Device Contraindication: Treatment Not Indicated VTE Drug Contraindication: N/A - Med Ordered
--- NOTE | 2022-01-04 12:27 | MHC.CM.PN ---
PATIENT IS NOW ON [employer] AND PLAN IS FOR AN [facility] TRANSFER HALFWAY, RN, DIDI ([phone]) UPDATED WITH REASON FOR PATIENT NOT LEAVING LAST NIGHT DIDI EXPRESSED CONCERN THAT NO CALL WAS MADE TO INFORM THE HALFWAY THAT PATIENT WOULD NOT BE RETURNING SHE ALSO ASKS THAT PATIENT'S SISTER, SHAHZAD [phone] BE UPDATED WITH PATIENT PROGRESS. MESSAGE LEFT ON VOICEMAIL WITH REQUEST TO CALL THIS LEAVE MANAGER BACK. NO PATIENT DETAIL LEFT ON VOICEMAIL.
[2022-01-04] MEDS: Acetaminophen Supp 650 MG SUPP.RECT PR (12:41)
--- NOTE | 2022-01-04 15:01 | P.CNID_ITS ---
History of Present Illness Data of Consult Service Date: 01/04/22 Requesting physician: David Almeida Primary Care Provider: Carlo Das MD HPI Reason for consult: hypoxia She presents with respiratory distress and shortness of breath from [facility]. She has no fever or chills. She has had recurrent mucus plugging/aspiration Review of Systems Review of Systems: Yes Unobtainable due to mental status PMFSH Past Medical History Medical History Bipolar 2 disorder Chronic constipation Developmental delay, severe Gastrostomy tube in place Hyperlipidemia Pulmonary emboli Tardive dyskinesia Family History Family history: reviewed and not pertinent Social History Social History Household Members: Other Household Members Other:: [facility] Housing: Assisted Living Facility Do you presently have visiting nurse or other home services: Yes (lives in [facility]) Unable to assess alcohol history related to: Unknown Alcohol intake: unknown Patient Tobacco Use Status: Tobacco use Unknown Advance Directives: No Advance Directives Information Provided: No service: No Current occupational status: disabled Meds Allergies Allergy/AdvReac Type Severity Reaction Status Date / Time ceftriaxone [From ROCEPHIN] Allergy Unknown UNKNOWN Verified 12/03/21 08:55 mirtazapine [MIRTAZAPINE] Allergy Unknown HIVES Verified 12/03/21 08:55 Active Medications: Current Medications Acetaminophen (Acetaminophen Supp 650 Mg Supp.Rect) 650 mg MA Q6H PRN PRN Reason: Pain, Mild (Pain Scale 1-3) Last Admin: 01/04/22 12:41 Dose: 650 mg Documented by: Heparin Sodium (Porcine) (Heparin Sodium,Porcine 5,000 Unit/Ml Vial) 5,000 unit SUBCUT Q12H [facility] Last Admin: 01/04/22 08:36 Dose: 5,000 unit Documented by: Piperacillin Sod/Tazobactam (Sod 3.375 gm/ Sodium Chloride) 50 mls @ 100 mls/hr IV Q6H [facility] Last Infusion: 01/04/22 13:36 Dose: Infused Documented by: Vancomycin HCl 1,000 mg/ (Sodium Chloride) 270 mls @ 270 mls/hr IV Q12H [facility] Ondansetron HCl (Ondansetron Hcl 4 Mg/2 Ml Vial) 4 mg IVPUSH Q8H PRN PRN Reason: Nausea and Vomiting Pharmacy Consult (Consult Rx Perform Med Rec) 1 each MISCELLANE ONCE PRN PRN Reason: Consult order Pharmacy Consult (Consult Rx Vancomycin Dosing) 1 each MISCELLANE DAILY PRN PRN Reason: Consult order Sodium Chloride (0.9 % Sodium Chloride Flush 3 Ml Syringe) 3 ml IVFLUSH QSHIFT [facility] Last Admin: 01/04/22 08:37 Dose: 3 ml Documented by: Home Medications Medication Instructions Recorded Confirmed Last Taken Type acetaminophen 325 mg tablet 975 mg FEEDING TUBE TID 11/27/21 12/29/21 12/29/21 History clonazepam 0.5 mg tablet 1 tab FEEDING TUBE BID@0800,1400 11/27/21 12/29/21 12/28/21 History clonazepam 2 mg tablet 1 tab FEEDING TUBE BEDTIME 11/27/21 12/29/21 12/28/21 History clotrimazole 1 % topical cream 1 appl TOPICAL MOFR 11/27/21 12/29/21 12/27/21 History cyanocobalamin (vitamin B-12) 1 tab FEEDING TUBE DAILY 11/27/21 12/29/21 12/29/21 History 1,000 mcg tablet docusate sodium 50 mg/5 mL oral 100 mg FEEDING TUBE BID 11/27/21 12/29/21 12/29/21 History liquid (Docu) fluoxetine 10 mg capsule 1 cap FEEDING TUBE DAILY 11/27/21 12/29/21 12/29/21 History fluoxetine 20 mg capsule 1 cap FEEDING TUBE DAILY 11/27/21 12/29/21 12/29/21 History folic acid 1 mg tablet 1 tab FEEDING TUBE DAILY 11/27/21 12/29/21 12/29/21 History ketoconazole 2 % shampoo 1 appl TOPICAL DAILY 11/27/21 12/29/21 12/29/21 History melatonin 1 mg tablet 1 tab FEEDING TUBE BEDTIME 11/27/21 12/29/21 12/28/21 History sennosides 8.8 mg/5 mL oral syrup 17.6 mg FEEDING TUBE DAILY 11/27/21 12/29/21 12/29/21 History (senna) simvastatin 20 mg tablet 1 tab FEEDING TUBE BEDTIME 11/27/21 12/29/21 12/28/21 History trazodone 50 mg tablet 1 tab FEEDING TUBE BEDTIME 11/27/21 12/29/21 12/28/21 History triamcinolone acetonide 0.1 % 1 applic TOPICAL DAILY 11/27/21 12/29/21 12/29/21 History topical cream valproic acid (as sodium salt) 250 1,500 mg PO DAILY 11/27/21 12/29/21 12/29/21 History mg/5 mL oral solution valproic acid (as sodium salt) 250 1,750 mg FEEDING TUBE BEDTIME 11/27/21 12/29/21 12/28/21 History mg/5 mL oral solution cranberry 400 mg capsule 400 mg FEEDING TUBE DAILY 12/29/21 12/29/21 12/29/21 History Physical Exam Vital Signs: Vital Signs: Last Vital Signs Temp 98.7 F 01/04/22 14:26 Pulse 127 H 01/04/22 14:26 Resp 20 01/04/22 14:26 BP 133/83 01/04/22 14:26 Pulse Ox 100 01/04/22 14:26 Oxygen Flow Rate 15 12/29/21 15:24 BMI result Body Mass Index 26.2 Const: General: cooperative HEENT: Head: Yes normal to inspection Mouth: Normal oral and palatal mucosa present Resp: Effort & Inspection: decreased respiratory effort Cardio: Rate: regular rate Rhythm: regular rhythm GI: Palpation (GI): Soft to palpation and nontender Skin: General skin exam: no rashes or lesions noted Results Labs CBC & Chem 7: 01/02/22 05:53 01/02/22 05:53 Microbiology Microbiology Results: Microbiology 12/30/21 07:00 Blood - Venous Blood Culture - Final No growth after 5 days. 12/30/21 06:50 Blood - Venous Blood Culture - Final No growth after 5 days. 12/29/21 15:47 Blood - Venous Blood Culture - Final No growth after 5 days. 12/29/21 15:47 Blood - Venous Blood Culture - Final Enterococcus faecalis Coag negative Staphylococcus Assessment and Plan (1) Acute respiratory failure with hypoxia: Status: Acute CXR is unremarkable and PE has been evaluated Likely this is mucus plugging She has some improvements and there is no MRSA found (2) Hypoxic: Status: Acute (3) Mucus plugging of bronchi: Status: Acute Plan Would continue Zosyn 5-7 d total Stop Vancomycin Thin secretions if able
[2022-01-04] MEDS: vancomycin HCL 1,000 MG in 0.9 % Sodium Chloride 250 ML 270 MG IV (20:36)
[2022-01-05 04:00] VITALS: BP 135/85; PULSE 100; RESP 18; TEMP 37.1; O2SAT 99
[2022-01-05] MEDS: Piperacillin Sodium/Tazobactam 3.375 GM in 0.9 % Sodium Chloride 50 ML IV ×3 (05:43→19:06)
[2022-01-05 06:22] LABS: MANUAL DIFF FLAG NO
[2022-01-05 06:34] LABS: Basophils Percent Auto 0.4 % (0-2); Hematocrit 39.3 % (37.0-47.0); Hemoglobin 13.1 g/dl (12.0-16.0); Imm Gran Abs Auto 0.03 X10*3/uL (0.00-0.03); Imm Gran Pct Auto 0.3 % (0.0-0.4); Lymphocytes Absolute Auto 1.3 X10*3/uL (1.2-4.9); Lymphocytes Percent Auto 14.2 % (20-40); Mean Corpuscular HGB Conc 33.3 g/dl (31.0-35.0); Mean Corpuscular Hemoglobin 34.5 pg (27.0-33.0); Mean Corpuscular Volume 103.4 fL (80.0-98.0); Mean Platelet Volume 9.6 fL (9.4-12.3); Monocytes Absolute Auto 0.9 X10*3/uL (0.1-1.2); Monocytes Percent Auto 9.9 % (2-11); Neutrophils Absolute Auto 7.1 x10*3/uL (2.0-8.3); Neutrophils Percent Auto 75.2 % (45-73); Platelet Count 328 X10*3/uL (160-400); Red Cell Distribution Width 12.7 % (11.0-16.0); White Blood Count 9.5 X10*3/uL (4.8-10.8)
[2022-01-05 06:52] LABS: Alanine Aminotransferase 11 U/L (0-31); Albumin Level 3.6 g/dL (3.5-5.0); Alkaline Phosphatase 83 U/L (39-117); Anion Gap 12 (12-20); Aspartate Amino Transferase 13 U/L (5-31); Bilirubin Total 0.7 mg/dL (0.0-1.0); Blood Urea Nitrogen 34 mg/dL (9-16); Carbon Dioxide 29 mmol/L (22-29); Chloride 109 mmol/L (96-108); Creatinine Clr Calc Pharmacy 82.6; Estimated Glomerular Filt Rate > 60; Glucose Fasting 133 mg/dL (60-99); Sodium 146 mmol/L (135-145); Total Protein 6.4 g/dL (6.5-8.0)
[2022-01-05 07:41] VITALS: BP 140/90; PULSE 112; RESP 17; TEMP 36.4; O2SAT 98
--- NOTE | 2022-01-05 08:38 | PC.NURSE ---
Skin/Wound assessment completed. Patient has blanchable redness to coccyx and a skin tear to right elbow. Barrier cream applied to coccyx/buttocks and Xeroform applied to skin tear covered with foam dressing.
[2022-01-05] MEDS: vancomycin HCL 1,000 MG in 0.9 % Sodium Chloride 250 ML 270 MG IV (09:24)
[2022-01-05] MEDS: Heparin Sodium,Porcine 5,000 UNIT/ML VIAL 5000 UNIT SUBCUT ×2 (09:25→20:44)
[2022-01-05] MEDS: 0.9 % Sodium Chloride Flush 3 ML SYRINGE IVFLUSH ×2 (09:25→17:14)
--- NOTE | 2022-01-05 10:39 | P.PNIM_ITS ---
Subjective Subjective Date of Service: 01/05/22 Interval History: f/u on PNA interval history: clinically is doing fine, vitals stable, not able to get anything out of her Review of Systems Review of Systems: Yes Unobtainable due to mental status Physical Exam Vital Signs: Vital Signs: Last Vital Signs Temp 97.6 F 01/05/22 07:41 Pulse 112 H 01/05/22 07:41 Resp 17 01/05/22 07:41 BP 140/90 H 01/05/22 07:41 Pulse Ox 98 01/05/22 07:41 Oxygen Flow Rate 15 12/29/21 15:24 BMI result Body Mass Index 26.2 Const: Other: General: alert, no acute distress Resp: ronchi CVS: S1,S2,RRR GI: +BS, NT, no distention Skin: No rash Neuro: no focal deficit noted Psych: flat affect Objective Data Active Medications Acetaminophen (Acetaminophen Supp 650 Mg Supp.Rect) 650 mg [place] Q6H PRN PRN Reason: Pain, Mild (Pain Scale 1-3) Last Admin: 01/04/22 12:41 Dose: 650 mg Documented by: LORENE Heparin Sodium (Porcine) (Heparin Sodium,Porcine 5,000 Unit/Ml Vial) 5,000 unit SUBCUT Q12H [facility] Last Admin: 01/05/22 09:25 Dose: 5,000 unit Documented by: AZAM Piperacillin Sod/Tazobactam (Sod 3.375 gm/ Sodium Chloride) 50 mls @ 100 mls/hr IV Q6H [facility] Last Infusion: 01/05/22 06:13 Dose: 0 mls/hr Documented by: CARLA Vancomycin HCl 1,000 mg/ (Sodium Chloride) 270 mls @ 270 mls/hr IV Q12H [facility] Last Admin: 01/05/22 09:24 Dose: 270 mls/hr Documented by: AZAM Ondansetron HCl (Ondansetron Hcl 4 Mg/2 Ml Vial) 4 mg IVPUSH Q8H PRN PRN Reason: Nausea and Vomiting Pharmacy Consult (Consult Rx Perform Med Rec) 1 each MISCELLANE ONCE PRN PRN Reason: Consult order Pharmacy Consult (Consult Rx Vancomycin Dosing) 1 each MISCELLANE DAILY PRN PRN Reason: Consult order Sodium Chloride (0.9 % Sodium Chloride Flush 3 Ml Syringe) 3 ml IVFLUSH QSHIFT [facility] Last Admin: 01/05/22 09:25 Dose: 3 ml Documented by: AZAM Labs CBC & Chem 7: 01/05/22 06:07 01/05/22 06:07 Labs: Laboratory Results - last 24 hr 01/05/22 01/05/22 06:07 06:07 MCV 103.4 H MCH 34.5 H MCHC 33.3 RDW 12.7 Plt Count 328 MPV 9.6 Immature Gran % (Auto) 0.3 Neut % (Auto) 75.2 H Lymph % (Auto) 14.2 L [place] % (Auto) 9.9 Eos % (Auto) 0.0 Baso % (Auto) 0.4 Lymph # (Auto) 1.3 [place] # (Auto) 0.9 Eos # (Auto) 0.0 Baso # (Auto) 0.0 Abs Immat Gran (auto) 0.03 Absolute Neuts (auto) 7.1 Absolute Nucleated RBC 0.000 Nucleated RBC % (auto) 0.0 Anion Gap 12 Estim Creat Clear Calc 82.6 Estimated GFR > 60 Fasting Glucose 133 H Calcium 10.0 Total Bilirubin 0.7 AST 13 ALT 11 Alkaline Phosphatase 83 Total Protein 6.4 L Albumin 3.6 Microbiology Microbiology Results: Microbiology 12/30/21 07:00 Blood Culture - Final Blood - Venous No growth after 5 days. 12/30/21 06:50 Blood Culture - Final Blood - Venous No growth after 5 days. Assessment and Plan (1) Acute respiratory failure with hypoxia: Status: Acute (2) Chronic constipation: Status: Acute Plan 51-year-old female with developmental delay, chronically bed-bound presents to the hospital with hypoxia found to be hypoxic respiratory failure secondary to likely mucus plugging 1.Acute hypoxic respiratory failure(negative workup thus far) -continue empiric Zosyn(6)... add Vanco secondary to por BC(1/2 enterococcus)--for total of 7 days per ID, so stop Abx tomorrow 2.Severe developmental delay/dysphagia -continue tube feeds/meds as outpatient -adjust as indicated DVT prophylaxis: Lovenox need for hospital staty for ongoing IV Abx for pneumoia, IV ending tomorrow per ID recommendation Quality Stroke Does the patient have a stroke diagnosis?: No VTE Prior VTE?: No VTE Risk Level:: Medical - moderate - high VTE Device Contraindication: Treatment Not Indicated VTE Drug Contraindication: N/A - Med Ordered
--- NOTE | 2022-01-05 10:51 | MHC.CLN ---
F/U PT IS DEPENDENT ON GTUBE FOR NUTRITION SUPPORT PT WAS RECEIVING PROMOTE AT 60ML/HR WITH 120CC [facility]WF Q 8 HRS PROVIDES 1440KCALS, 90G PROTEIN, 1568ML TOTAL WATER FROM FORMULA AND FLUSHES PROMOTE FORMULA OVER EXCEEDING PROTEIN NEEDS RECOMMEND CHANGING FORMULA TO JEVITY 1.0 AT MAX GOAL RATE 55ML/HR WITH 120ML FWF Q 6 HRS TO PROVIDE 1399KCALS (28KCALS/KG), 58G PROTEIN (1.15G/KG), 1582ML TOTAL WATER FROM FORMULA AND FLUSH (31ML/KG) MONITOR TOLERANCE, RESIDUALS AND LYTES
--- NOTE | 2022-01-05 11:05 | MHC.CM.PN ---
Per ROUNDS discussion, Patient is not yet medically cleared for dc (IV VANCO & IV Zosyn); returning to his [facility] is the plan and CM will continue top follow.
[2022-01-05 11:12] VITALS: BP 155/89; PULSE 100; RESP 18; TEMP 36.9; O2SAT 95
--- NOTE | 2022-01-05 13:49 | PC.NURSE ---
Patient found hard breathing due to accumulation of mucus in the throat. We suctioned, pumped up her O2 to 3 L and called respiratory who came up to suction. Patient's vital signs are stable.
[2022-01-05 15:33] VITALS: BP 174/109; PULSE 130; RESP 16; TEMP 36; O2SAT 95
[2022-01-05 19:15] VITALS: BP 143/81; PULSE 117; RESP 16; TEMP 36.2; O2SAT 97
[2022-01-05 19:28] LABS: Vancomycin Trough 20.9 mcg/mL (10.0-20.0)
--- NOTE | 2022-01-05 19:43 | PHA.PROG ---
Admission Date/Time: December 29, 2021 20:18 Indication: Weight in k kg Adjusted body weight in Kg: [place] body weight in Kg: Obesity Dosing Indication % IBW: Serum Creatinine - Last 168 Hours 12/30/21 12/31/21 01/01/22 05:36 05:53 05:52 Creatinine 0.56 0.57 0.59 01/02/22 01/05/22 05:53 06:07 Creatinine 0.66 0.65 Estimated CrCl and GFR - Last 168 Hours 12/30/21 12/31/21 01/01/22 05:36 05:53 05:52 Estim Creat Clear Calc 95.9 94.2 91.0 Estimated GFR > 60 > 60 > 60 01/02/22 01/05/22 05:53 06:07 Estim Creat Clear Calc 81.3 82.6 Estimated GFR > 60 > 60 Vancomycin Loading Dose: Current Vancomycin Dosing Regimen: Vancomycin Monitoring using AUC goal of 400 - 600 range with trough as surrogate marker: Date and Time for next Vancomycin Level to be drawn: Vancomycin Trough 20.9 mcg/mL (10.0-20.0) H 01/05/22 18:58 Pharmacist Comments on Vancomycin Plan:Trough 20.9 will hold 1 gm tonight redraw random trough ian at 0700 and reduced dose to 750 mg depending on morning random Vancomycin dosing will take advantage of [employer] as a clinical decision support tool that uses Bayesian modeling to calculate individual patient's pharmacokinetic parameters and forecast the patient's drug concentration time course with the target goal AUC 24 range of 400 - 600 mg/L/hr.
[2022-01-05 23:02] VITALS: PULSE 119; RESP 20; TEMP 36.7; O2SAT 98
[2022-01-06] VITALS (8 sets, daily range): BP systolic 97–136; BP diastolic 67–81; PULSE 102–114; RESP 16–30; TEMP 36.3–36.9; O2SAT 94–100
[2022-01-06] MEDS: Piperacillin Sodium/Tazobactam 3.375 GM in 0.9 % Sodium Chloride 50 ML IV (00:12)
[2022-01-06] MEDS: Morphine Sulfate 2 MG/ML CARTRIDGE 1 MG IVPUSH (01:15)
--- NOTE | 2022-01-06 01:54 | PM.EVENT ---
Event Note Date of Service: 01/06/22 Event Note: Acute hypoxic respiratory failure: Around 01:30 on 01/06/2022, patient became acutely hypoxic. RN mentioned that patient: Changed when they checked oxygen it was in 30s; immediately patient was placed on non-rebreather; given her history concerned she might have mucus plug; none RN tried oral suctioning with no significant output; followed by respiratory therapist tried nasal suctioning, deep suctioning, oral suctioning; no mucus plug was noted; Patient continued to be hypoxic to 60s to 70s; tachycardic to 126; Spoke to ICU attending Dr. Gillette who suggested high-flow; given patient is DNR DNI options are limited. CPAP is contraindicated given the risk of aspiration/barotrauma if mucus plug; Few minutes diarrhea patient oxygenation started to improve and color normalized currently on non-rebreather saturating at 96%; Will continue to monitor closely Patient is alert and awake.
--- NOTE | 2022-01-06 04:14 | PC.NURSE ---
Upon initial assessment at 0100- pt cyanotic, labored/shallow breathing, diaphoretic, LS rhonchi throughout, SpO2 30s, RR 30s, HR 150-160s. Attempted to oropharyngeal suction pt- tolerated well but with minimal effect. Placed on 15L/100% NRB, SpO2 50-60s. RT/MD notified and to bedside. Multiple attempts to suction pt by RT, bloody secretions noted. CXR ordered and done. Given morphine 1 mg IVP x1. Eventually, SpO2 slowly increased to 90s via NRB. Pt appears comfortable, breathing easy/non labored- oxygen titrated down to 3L NC, SpO2 92% at this time.
[2022-01-06 07:21] LABS: Basophils Percent Auto 0.2 % (0-2); Hematocrit 44.9 % (37.0-47.0); Hemoglobin 14.1 g/dl (12.0-16.0); Imm Gran Abs Auto 0.21 X10*3/uL (0.00-0.03); Lymphocytes Absolute Auto 0.7 X10*3/uL (1.2-4.9); Lymphocytes Percent Auto 3.3 % (20-40); MANUAL DIFF FLAG SCAN; Mean Corpuscular HGB Conc 31.4 g/dl (31.0-35.0); Mean Corpuscular Hemoglobin 34.2 pg (27.0-33.0); Mean Platelet Volume 9.5 fL (9.4-12.3); Monocytes Absolute Auto 2.6 X10*3/uL (0.1-1.2); Monocytes Percent Auto 12.2 % (2-11); Neutrophils Absolute Auto 17.7 x10*3/uL (2.0-8.3); Neutrophils Percent Auto 83.3 % (45-73); Platelet Count 398 X10*3/uL (160-400); Red Blood Count 4.12 X10*6/uL (4.20-5.50); Red Cell Distribution Width 12.5 % (11.0-16.0); SCAN SMEAR FLAG 1; White Blood Count 21.3 X10*3/uL (4.8-10.8)
[2022-01-06 07:31] LABS: Alanine Aminotransferase 23 U/L (0-31); Albumin Level 3.9 g/dL (3.5-5.0); Alkaline Phosphatase 97 U/L (39-117); Anion Gap 15 (12-20); Aspartate Amino Transferase 32 U/L (5-31); Bilirubin Total 0.5 mg/dL (0.0-1.0); Blood Urea Nitrogen 44 mg/dL (9-16); Calcium 10.3 mg/dL (8.4-10.2); Carbon Dioxide 31 mmol/L (22-29); Chloride 108 mmol/L (96-108); Creatinine Clr Calc Pharmacy 63.9; Estimated Glomerular Filt Rate > 60; Glucose Fasting 98 mg/dL (60-99); Sodium 150 mmol/L (135-145)
[2022-01-06 07:34] LABS: Vancomycin Random 13.2 mcg/mL (15-20)
[2022-01-06 07:59] LABS: SLIDE REVIEW VERIFIED
[2022-01-06] MEDS: vancomycin HCL 500 MG in 0.9 % Sodium Chloride 100 ML 110 MG IV ×2 (09:23→20:51)
[2022-01-06] MEDS: Heparin Sodium,Porcine 5,000 UNIT/ML VIAL 5000 UNIT SUBCUT ×2 (09:23→20:53)
[2022-01-06] MEDS: 0.9 % Sodium Chloride Flush 3 ML SYRINGE IVFLUSH ×3 (09:24→20:55)
[2022-01-06] MEDS: Acetaminophen Supp 650 MG SUPP.RECT PR (09:42)
--- NOTE | 2022-01-06 10:00 | PC.NURSE ---
Addendum entered by Racheal Edwards RN 01/06/22 16:38: Tube feed resumed 16:30 per MD at 40 ml/hr Jevity per orders. No residual before tube feeding initiated. 120 ml H2O flushed. Original Note: Pt noted to have secretions gurgling in throat, unable to swallow secretions, tachycardic. RT oropharyngeal suctioned 09:30 with thick red secretions removed. Pt tube feeding paused per MD for concern of aspiration.
--- NOTE | 2022-01-06 12:21 | P.PNIM_ITS ---
Subjective Subjective Date of Service: 01/06/22 Interval History: f/u on PNA interval history: Patient had change in condition overnight becoming very hypoxic and attributed to mucus plug but seem to have recovered Review of Systems Unable to obtain secondary to nonverbal status Physical Exam Vital Signs: Vital Signs: Last Vital Signs Temp 97.3 F 01/06/22 10:56 Pulse 104 H 01/06/22 10:56 Resp 18 01/06/22 10:56 BP 110/72 01/06/22 10:56 Pulse Ox 100 01/06/22 10:56 Oxygen Flow Rate 15 12/29/21 15:24 BMI result Body Mass Index 26.2 Const: Other: General: non communicative, no distress at moment Resp: leilani CVS: S1,S2,RRR GI: +BS, NT, no distention Skin: No rash Neuro: no focal deficit noted Psych: flat affect Objective Data Active Medications Acetaminophen (Acetaminophen Supp 650 Mg Supp.Rect) 650 mg [place] Q6H PRN PRN Reason: Pain, Mild (Pain Scale 1-3) Last Admin: 01/06/22 09:42 Dose: 650 mg Documented by: SUSAN Heparin Sodium (Porcine) (Heparin Sodium,Porcine 5,000 Unit/Ml Vial) 5,000 unit SUBCUT Q12H COUNT INCLUDES THE [facility] Last Admin: 01/06/22 09:23 Dose: 5,000 unit Documented by: SUSAN Vancomycin HCl 500 mg/ Sodium (Chloride) 110 mls @ 110 mls/hr IV Q12H COUNT INCLUDES THE [facility] Last Infusion: 01/06/22 10:34 Dose: 0 mls/hr Documented by: SUSAN Ondansetron HCl (Ondansetron Hcl 4 Mg/2 Ml Vial) 4 mg IVPUSH Q8H PRN PRN Reason: Nausea and Vomiting Pharmacy Consult (Consult Rx Perform Med Rec) 1 each MISCELLANE ONCE PRN PRN Reason: Consult order Pharmacy Consult (Consult Rx Vancomycin Dosing) 1 each MISCELLANE DAILY PRN PRN Reason: Consult order Sodium Chloride (0.9 % Sodium Chloride Flush 3 Ml Syringe) 3 ml IVFLUSH QSHIFT COUNT INCLUDES THE [facility] Last Admin: 01/06/22 09:24 Dose: 3 ml Documented by: SUSAN Labs CBC & Chem 7: 01/06/22 06:57 01/06/22 06:57 Labs: Laboratory Results - last 24 hr 01/05/22 01/06/22 01/06/22 18:58 06:57 06:57 MCV 109.0 H D MCH 34.2 H MCHC 31.4 RDW 12.5 Plt Count 398 MPV 9.5 Immature Gran % (Auto) 1.0 H Neut % (Auto) 83.3 H Lymph % (Auto) 3.3 L [place] % (Auto) 12.2 H Eos % (Auto) 0.0 Baso % (Auto) 0.2 Lymph # (Auto) 0.7 L [place] # (Auto) 2.6 H Eos # (Auto) 0.0 Baso # (Auto) 0.0 Abs Immat Gran (auto) 0.21 H Absolute Neuts (auto) 17.7 H Absolute Nucleated RBC 0.000 Nucleated RBC % (auto) 0.0 Smear Tech's Comments VERIFIED Anion Gap Estim Creat Clear Calc Estimated GFR Fasting Glucose Calcium Total Bilirubin AST ALT Alkaline Phosphatase Total Protein Albumin Vancomycin Trough 20.9 H Random Vancomycin 13.2 L 01/06/22 06:57 MCV MCH MCHC RDW Plt Count MPV Immature Gran % (Auto) Neut % (Auto) Lymph % (Auto) [place] % (Auto) Eos % (Auto) Baso % (Auto) Lymph # (Auto) [place] # (Auto) Eos # (Auto) Baso # (Auto) Abs Immat Gran (auto) Absolute Neuts (auto) Absolute Nucleated RBC Nucleated RBC % (auto) Smear Tech's Comments Anion Gap 15 Estim Creat Clear Calc 63.9 Estimated GFR > 60 Fasting Glucose 98 Calcium 10.3 H Total Bilirubin 0.5 AST 32 H D ALT 23 Alkaline Phosphatase 97 Total Protein 7.0 Albumin 3.9 Vancomycin Trough Random Vancomycin Assessment and Plan (1) Acute respiratory failure with hypoxia: Status: Acute (2) Chronic constipation: Status: Acute Plan 51-year-old female with developmental delay, chronically bed-bound presents to the hospital with hypoxia found to be hypoxic respiratory failure secondary to likely mucus plugging 1.Acute hypoxic respiratory failure due to recurrent aspiration event as did ovenight, unfortunately this will continue to be an issues with no clear remedy, I don't event think a trach will resolved this. -continue empiric Zosyn(7)... add Vanco secondary to por BC(1/2 enterococcus)--for total of 7 days per ID, so stopping Abx after today 2.Severe developmental delay/dysphagia -continue tube feeds/meds as outpatient -adjust as indicated DVT prophylaxis: Lovenox need for hospital staty for ongoing IV Abx for pneumoia, IV ending tomorrow per ID recommendation, Overall poor prognosis and I think hospice is appropriate and will discuss with HCP Quality Stroke Does the patient have a stroke diagnosis?: No VTE Prior VTE?: No VTE Risk Level:: Medical - moderate - high VTE Device Contraindication: Treatment Not Indicated VTE Drug Contraindication: N/A - Med Ordered
[2022-01-07] VITALS (7 sets, daily range): BP systolic 126–160; BP diastolic 68–99; PULSE 78–122; RESP 16–22; TEMP 36.3–37.4; O2SAT 93–100
[2022-01-07 06:48] LABS: MANUAL DIFF FLAG NO
[2022-01-07 06:55] LABS: Basophils Percent Auto 0.2 % (0-2); Hematocrit 40.1 % (37.0-47.0); Hemoglobin 13.1 g/dl (12.0-16.0); Imm Gran Abs Auto 0.04 X10*3/uL (0.00-0.03); Imm Gran Pct Auto 0.4 % (0.0-0.4); Lymphocytes Absolute Auto 1.6 X10*3/uL (1.2-4.9); Lymphocytes Percent Auto 13.9 % (20-40); Mean Corpuscular HGB Conc 32.7 g/dl (31.0-35.0); Mean Corpuscular Volume 107.2 fL (80.0-98.0); Mean Platelet Volume 9.7 fL (9.4-12.3); Monocytes Absolute Auto 0.8 X10*3/uL (0.1-1.2); Monocytes Percent Auto 7.1 % (2-11); Neutrophils Absolute Auto 8.9 x10*3/uL (2.0-8.3); Neutrophils Percent Auto 78.4 % (45-73); Platelet Count 348 X10*3/uL (160-400); Red Blood Count 3.74 X10*6/uL (4.20-5.50); Red Cell Distribution Width 12.4 % (11.0-16.0); White Blood Count 11.4 X10*3/uL (4.8-10.8)
[2022-01-07 07:52] LABS: Alanine Aminotransferase 21 U/L (0-31); Albumin Level 3.5 g/dL (3.5-5.0); Alkaline Phosphatase 86 U/L (39-117); Anion Gap 8 (12-20); Aspartate Amino Transferase 16 U/L (5-31); Bilirubin Total 0.5 mg/dL (0.0-1.0); Blood Urea Nitrogen 40 mg/dL (9-16); Calcium 9.9 mg/dL (8.4-10.2); Carbon Dioxide 35 mmol/L (22-29); Chloride 111 mmol/L (96-108); Creatinine Clr Calc Pharmacy 75.6; Estimated Glomerular Filt Rate > 60; Glucose Fasting 144 mg/dL (60-99); Potassium 3.9 mmol/L (3.3-5.1); Sodium 150 mmol/L (135-145); Total Protein 6.3 g/dL (6.5-8.0)
--- NOTE | 2022-01-07 09:45 | HO.PM.IMPN ---
Subjective Subjective Date of Service: 01/07/22 Interval History: f/u on PNA due to aspiration interval history:No change overnight, appear fairly comfortable, no hypoxia, O2 sat 100 on 3 liters. Sodium remains high Review of Systems Unable to obtain secondary to nonverbal status Physical Exam Vital Signs: Vital Signs: Last Vital Signs Temp 97.3 F 01/07/22 07:28 Pulse 110 H 01/07/22 07:28 Resp 20 01/07/22 07:28 BP 142/99 H 01/07/22 07:28 Pulse Ox 100 01/07/22 07:28 Oxygen Flow Rate 15 12/29/21 15:24 BMI result Body Mass Index 26.2 Const: Other: General: non communicative, no distress at moment Resp: leilani CVS: S1,S2,RRR GI: +BS, NT, no distention Skin: No rash Neuro: no focal deficit noted Psych: flat affect Objective Data Active Medications Acetaminophen (Acetaminophen Supp 650 Mg Supp.Rect) 650 mg [place] Q6H PRN PRN Reason: Pain, Mild (Pain Scale 1-3) Last Admin: 01/06/22 09:42 Dose: 650 mg Documented by: SUSAN Heparin Sodium (Porcine) (Heparin Sodium,Porcine 5,000 Unit/Ml Vial) 5,000 unit SUBCUT Q12H [facility] Last Admin: 01/06/22 20:53 Dose: 5,000 unit Documented by: COREY Vancomycin HCl 500 mg/ Sodium (Chloride) 110 mls @ 110 mls/hr IV Q12H [facility] Last Infusion: 01/06/22 21:58 Dose: 0 mls/hr Documented by: COREY Ondansetron HCl (Ondansetron Hcl 4 Mg/2 Ml Vial) 4 mg IVPUSH Q8H PRN PRN Reason: Nausea and Vomiting Pharmacy Consult (Consult Rx Perform Med Rec) 1 each MISCELLANE ONCE PRN PRN Reason: Consult order Pharmacy Consult (Consult Rx Vancomycin Dosing) 1 each MISCELLANE DAILY PRN PRN Reason: Consult order Sodium Chloride (0.9 % Sodium Chloride Flush 3 Ml Syringe) 3 ml IVFLUSH QSHIFT [facility] Last Admin: 01/06/22 20:55 Dose: 3 ml Documented by: COREY Labs CBC & Chem 7: 01/07/22 06:30 01/07/22 06:30 Labs: Laboratory Results - last 24 hr 12/29/21 12/30/21 12/31/21 15:35 05:36 05:53 MCV MCH MCHC RDW Plt Count MPV Immature Gran % (Auto) Neut % (Auto) Lymph % (Auto) [place] % (Auto) Eos % (Auto) Baso % (Auto) Lymph # (Auto) [place] # (Auto) Eos # (Auto) Baso # (Auto) Abs Immat Gran (auto) Absolute Neuts (auto) Absolute Nucleated RBC Nucleated RBC % (auto) Sodium 139 140 139 Anion Gap Estim Creat Clear Calc Estimated GFR Fasting Glucose Calcium Total Bilirubin AST ALT Alkaline Phosphatase Total Protein Albumin 01/01/22 01/02/22 01/05/22 05:52 05:53 06:07 MCV MCH MCHC RDW Plt Count MPV Immature Gran % (Auto) Neut % (Auto) Lymph % (Auto) [place] % (Auto) Eos % (Auto) Baso % (Auto) Lymph # (Auto) [place] # (Auto) Eos # (Auto) Baso # (Auto) Abs Immat Gran (auto) Absolute Neuts (auto) Absolute Nucleated RBC Nucleated RBC % (auto) Sodium 140 144 146 H Anion Gap Estim Creat Clear Calc Estimated GFR Fasting Glucose Calcium Total Bilirubin AST ALT Alkaline Phosphatase Total Protein Albumin 01/06/22 01/07/22 01/07/22 06:57 06:30 06:30 MCV 107.2 H MCH 35.0 H MCHC 32.7 RDW 12.4 Plt Count 348 MPV 9.7 Immature Gran % (Auto) 0.4 Neut % (Auto) 78.4 H Lymph % (Auto) 13.9 L [place] % (Auto) 7.1 Eos % (Auto) 0.0 Baso % (Auto) 0.2 Lymph # (Auto) 1.6 [place] # (Auto) 0.8 Eos # (Auto) 0.0 Baso # (Auto) 0.0 Abs Immat Gran (auto) 0.04 H Absolute Neuts (auto) 8.9 H Absolute Nucleated RBC 0.000 Nucleated RBC % (auto) 0.0 Sodium 150 H 150 H Anion Gap 8 L Estim Creat Clear Calc 75.6 Estimated GFR > 60 Fasting Glucose 144 H Calcium 9.9 Total Bilirubin 0.5 AST 16 D ALT 21 Alkaline Phosphatase 86 Total Protein 6.3 L Albumin 3.5 Assessment and Plan (1) Acute respiratory failure with hypoxia: Status: Acute (2) Chronic constipation: Status: Acute Plan 51-year-old female with developmental delay, chronically bed-bound presents to the hospital with hypoxia found to be hypoxic respiratory failure secondary to likely mucus plugging 1.Acute hypoxic respiratory failure due to recurrent aspiration event as did ovenight, unfortunately this will continue to be an issues with no clear remedy, I don't event think a trach will resolved this. -continue empiric Zosyn(7)... add Vanco secondary to por BC(/ enterococcus)--for total of 7 days per ID (completed) -wean off O2 2.Severe developmental delay/dysphagia -continue tube feeds/meds as outpatient -adjust as indicated 3. Hypernatremia--due to decrease water intake. Increase water in the tube feed and recheck sodium DVT prophylaxis: Lovenox need for hospital staty for ongoing IV Abx for pneumoia, Herpnatremia that needs fluid adjustement Overall poor prognosis and I think hospice is appropriate and discussed with sister who is HCP.. no decision made, anticipate dc in 1 to 2 days Quality Stroke Does the patient have a stroke diagnosis?: No VTE Prior VTE?: No VTE Risk Level:: Medical - moderate - high VTE Device Contraindication: Treatment Not Indicated VTE Drug Contraindication: N/A - Med Ordered
[2022-01-07] MEDS: LORazepam 2 MG/ML VIAL 1 MG IVPUSH ×2 (10:00→10:05)
[2022-01-07 10:03] LABS: Glucose, Whole Blood 123 mg/dL (60-115)
[2022-01-07] MEDS: levETIRAcetam in NaCl (iso-os) 500 MG/100 ML PIGGYBACK 400 MG IV (10:30)
--- NOTE | 2022-01-07 11:38 | MHC.CM.PN ---
CALL TO DDS DAAYNNA CALLAHAN @ [phone]. PER CONVERSATION , THERE ARE NO DDS OBJECTIONS TO PATIENT BEING MADE HOSPICE LEVEL OF CARE [facility] STATES THAT BECAUSE FAMILY IS MAKING THE DECISION (SISTER/GUARDIAN) AND THE PRISON AGREES, THEN DDS IS HONORING FAMILY WISHES. MOLST AND PROGRESS NOTES TO BE FAXED TO [place] AT [phone]. WAS PRESENT FOR CALL AND UPDATED [facility] WITH PATIENT STATUS. REFERRAL TO [facility]. PLAN IS FOR PATIENT TO REMAIN FOR THE WEEKEND WITH PLANS TO TRANSITION (? BACK TO [facility]) FOR HOSPICE CARE OR POSSIBLY GIP
--- NOTE | 2022-01-07 12:31 | P.ACPN_ITS ---
Advanced Care Planning Note Advanced Care Planning Note Time spent (in minutes): 30 Narrative: Following earlier discussion with patient sister Yuko (Permanent Guardian) about patient not improving condition with her main difficulty been dysphagia and inability to handle secretions resulting frequent mucus plug resulting in aspiration and hypoxia, having to be suctioned very frequently with high amount of fluid suction out resulting in dehydration, and more fluid given result in more secretion ( vicious cirlce of a sort), at this point even a tracheostomy will not solve the problem, unfortunately her overall condition continues to decline and unlikely to improve, on top of evverything she had a tonic clonic seizure this morning treate with Ativan and Keppra and this has resulted in more hypoxia and possibly have resulted in more aspirations--She hs been treted with full course of Antibiotics. I discussed over all poor and worsening prognosis with her Sister Yuko who unfortnately is presently in [place] and concluded that Hospice/comfort care is best course of treatment at this time and she is agreable to this. I flory discussed with DDS with no objection to the treatment plan. Hospice consult is being requested, will give Ativan for seizure and morphine for respiratory distress. Conversation with sister lesvia procced with hospice/comfort care was witnessed by DAYANNA Schwartz and Conversation with DDS was in conjuntion with camp program director Jessica DAmour Problems Discussed (1) Acute respiratory failure with hypoxia: (2) Chronic constipation:
--- NOTE | 2022-01-07 13:06 | MHC.CLN ---
F/U PT IS DEPENDENT ON GTUBE FOR NUTRITION SUPPORT PT RECEIVING JEVITY 1.0 AT MAX GOAL RATE 55ML/HR WITH 300ML [facility]WF Q 6 HRS PROVIDES 1399KCALS (28KCALS/KG), 58G PROTEIN (1.15G/KG), 2302ML TOTAL WATER FROM FORMULA AND FLUSH (45.6ML/KG) ADJUST FREE WATER NEEDED R/T SERUM NA MONITOR TOLERANCE, RESIDUALS AND LYTES PT IS PENDING HOSPICE SERVICE PER MD WILL FOLLOW WITH TEAM AND PROVIDE SUPPORT NEEDED
--- NOTE | 2022-01-07 15:22 | MHC.CM.PN ---
[facility] FIND PATIENT NOT GIP LEVEL OF CARE. [facility]IA[facility] WILL REACH OUT TO SISTER/GUARDIAN ABOUT TRANSITIONING PATIENT BACK TO [facility] IF POSSIBLE CARE TENDERS [facility] UPDATED IN [facility] (PATIENT HAS BEEN ACTIVE WITH AGENCY)
[2022-01-07] MEDS: Morphine Sulfate 2 MG/ML CARTRIDGE IVPUSH (16:15)
[2022-01-07] MEDS: 0.9 % Sodium Chloride Flush 3 ML SYRINGE IVFLUSH ×2 (16:18→19:57)
[2022-01-08] VITALS (12 sets, daily range): BP systolic 156–161; BP diastolic 78–94; PULSE 112–150; RESP 18–34; TEMP 36.4–37.3; O2SAT 86–100
[2022-01-08] MEDS: Morphine Sulfate 2 MG/ML CARTRIDGE IVPUSH ×7 (03:18→21:58)
[2022-01-08] MEDS: LORazepam 2 MG/ML VIAL 1 MG IVPUSH (05:24)
--- NOTE | 2022-01-08 06:29 | PC.NURSE ---
Patient noted to be having a seizure by aide while doing rounds at 0520. This RN at bedside to assess, pt indeed having jerking movements to upper body, gazing off to the side and face is very red/gasping for air. Pt vitals taken: T 99.2, HR 150, BP 161/78, RR 34, O2 86 on NRB. PRN ativan administered. Dr. Eng notified of events. Orders for HFNC and deep suction. Respiratory at bedside. Deep suction done (very little and pink tinged) and to start HFNC (55L, 90%), NRB in place as well. Pt sats at 93%. PRN morphine given for increased RR.
[2022-01-08] MEDS: levETIRAcetam in NaCl (iso-os) 500 MG/100 ML PIGGYBACK 400 MG IV ×2 (08:26→19:50)
[2022-01-08] MEDS: 0.9 % Sodium Chloride Flush 3 ML SYRINGE IVFLUSH ×3 (08:27→19:52)
--- NOTE | 2022-01-08 08:30 | HO.PM.IMPN ---
Subjective Subjective Date of Service: 01/08/22 Interval History: F/u on comfort measure due to recurent aspiration, seizure and failure to thrive, patient had another seizure this morning and is being given more keppr and ativan Review of Systems Review of Systems: Yes Unobtainable due to mental status Physical Exam Vital Signs: Vital Signs: Last Vital Signs Temp 99.2 F 01/08/22 05:31 Pulse 150 H 01/08/22 05:31 Resp 34 H 01/08/22 05:53 BP 161/78 H 01/08/22 05:31 Pulse Ox 93 01/08/22 06:00 Oxygen Flow Rate 15 12/29/21 15:24 BMI result Body Mass Index 26.2 Const: Other: At present, unresponsive, looks comfortable no seizure activity, breathing is comfortable. Objective Data Active Medications Acetaminophen (Acetaminophen Supp 650 Mg Supp.Rect) 650 mg [place] Q6H PRN PRN Reason: Pain, Mild (Pain Scale 1-3) Last Admin: 01/06/22 09:42 Dose: 650 mg Documented by: SUSAN Levetiracetam (Keppra) 500 mg in 100 mls @ 400 mls/hr IV Q12H [facility] Last Admin: 01/08/22 08:26 Dose: 400 mls/hr Documented by: SUSAN Lorazepam (Lorazepam 2 Mg/Ml Vial) 1 mg IVPUSH Q2H PRN PRN Reason: anxiety or seizure Last Admin: 01/08/22 05:24 Dose: 1 mg Documented by: ADAM Lorazepam (Lorazepam 2 Mg/Ml Vial) 2 mg IVPUSH Q5M PRN PRN Reason: Seizures Morphine Sulfate (Morphine Sulfate 2 Mg/Ml Cartridge) 2 mg IVPUSH Q2H PRN; Protocol PRN Reason: resp distress/comfort Last Admin: 01/08/22 05:53 Dose: 2 mg Documented by: ADAM Ondansetron HCl (Ondansetron Hcl 4 Mg/2 Ml Vial) 4 mg IVPUSH Q8H PRN PRN Reason: Nausea and Vomiting Pharmacy Consult (Consult Rx Perform Med Rec) 1 each MISCELLANE ONCE PRN PRN Reason: Consult order Pharmacy Consult (Consult Rx Vancomycin Dosing) 1 each MISCELLANE DAILY PRN PRN Reason: Consult order Sodium Chloride (0.9 % Sodium Chloride Flush 3 Ml Syringe) 3 ml IVFLUSH QSHIFT [facility] Last Admin: 01/08/22 08:27 Dose: 3 ml Documented by: SUSAN Labs CBC & Chem 7: 01/07/22 06:30 01/07/22 06:30 Labs: Laboratory Results - last 24 hr 01/07/22 01/07/22 09:59 18:58 POC Glucose 123 H Vancomycin Trough 10.0 Assessment and Plan (1) Acute respiratory failure with hypoxia: Status: Acute (2) Chronic constipation: Status: Acute Plan 51-year-old female with developmental delay, chronically bed-bound presents to the hospital with hypoxia found to be hypoxic respiratory failure secondary to likely mucus plugging/Dysphagia, aspriation pneumonia, Sepsis/ entercoccus bacteremia, hospital course complicated by recurrent aspirations, mucus pluging requiring constant suction and seizures, hypernatremia and overall failure to thrive. Decsion made on 01/07 her guardian (sister Yuko and Nephew) and decision supported by DDS. Plan: Continue Comfort care with morphine for respiratory distress/comfort, Ativan for anxiety and seizure, Keppra for seizure, scopolamine to control secretions. Quality Stroke Does the patient have a stroke diagnosis?: No VTE Prior VTE?: No VTE Risk Level:: Medical - moderate - high VTE Device Contraindication: Treatment Not Indicated VTE Drug Contraindication: N/A - Med Ordered
[2022-01-09] VITALS: RESP 30
[2022-01-09 02:40] VITALS: RESP 30
[2022-01-09] MEDS: Morphine Sulfate 2 MG/ML CARTRIDGE IVPUSH ×6 (02:40→21:53)
[2022-01-09 06:11] VITALS: RESP 32
[2022-01-09] MEDS: 0.9 % Sodium Chloride Flush 3 ML SYRINGE IVFLUSH ×3 (09:20→19:53)
[2022-01-09] MEDS: levETIRAcetam in NaCl (iso-os) 500 MG/100 ML PIGGYBACK 400 MG IV ×2 (09:20→19:52)
--- NOTE | 2022-01-09 14:45 | HO.PM.IMPN ---
Subjective Subjective Date of Service: 01/10/22 Interval History: F/u on comfort measure due to recurent aspiration, seizure and failure to thrive, patient had another seizure this morning and is being given more keppr and ativan Review of Systems Unable to obtain secondary to nonverbal status Physical Exam Vital Signs: Vital Signs: Last Vital Signs Temp 99.2 F 01/08/22 05:31 Pulse 150 H 01/08/22 05:31 Resp 32 H 01/09/22 06:11 BP 161/78 H 01/08/22 05:31 Pulse Ox 93 01/08/22 06:00 Oxygen Flow Rate 15 12/29/21 15:24 BMI result Body Mass Index 26.2 Const: Other: At present, unresponsive, looks comfortable no seizure activity, breathing is comfortable. Objective Data Active Medications Acetaminophen (Acetaminophen Supp 650 Mg Supp.Rect) 650 mg [place] Q6H PRN PRN Reason: Pain, Mild (Pain Scale 1-3) Last Admin: 01/06/22 09:42 Dose: 650 mg Documented by: SUSAN Levetiracetam (Keppra) 500 mg in 100 mls @ 400 mls/hr IV Q12H [facility] Last Infusion: 01/09/22 09:54 Dose: 0 mls/hr Documented by: SUSAN Lorazepam (Lorazepam 2 Mg/Ml Vial) 1 mg IVPUSH Q2H PRN PRN Reason: anxiety or seizure Last Admin: 01/08/22 05:24 Dose: 1 mg Documented by: ADAM Lorazepam (Lorazepam 2 Mg/Ml Vial) 2 mg IVPUSH Q5M PRN PRN Reason: Seizures Morphine Sulfate (Morphine Sulfate 2 Mg/Ml Cartridge) 2 mg IVPUSH Q1H PRN; Protocol PRN Reason: resp distress/comfort Last Admin: 01/08/22 16:33 Dose: 2 mg Documented by: SUSAN Morphine Sulfate (Morphine Sulfate 2 Mg/Ml Cartridge) 2 mg IVPUSH Q4H [facility]; Protocol Last Admin: 01/09/22 14:32 Dose: 2 mg Documented by: SUSAN Ondansetron HCl (Ondansetron Hcl 4 Mg/2 Ml Vial) 4 mg IVPUSH Q8H PRN PRN Reason: Nausea and Vomiting Pharmacy Consult (Consult Rx Perform Med Rec) 1 each MISCELLANE ONCE PRN PRN Reason: Consult order Pharmacy Consult (Consult Rx Vancomycin Dosing) 1 each MISCELLANE DAILY PRN PRN Reason: Consult order Sodium Chloride (0.9 % Sodium Chloride Flush 3 Ml Syringe) 3 ml IVFLUSH QSHIFT [facility] Last Admin: 01/09/22 09:20 Dose: 3 ml Documented by: SUSAN Labs CBC & Chem 7: 01/07/22 06:30 01/07/22 06:30 Assessment and Plan (1) Developmental delay, severe: Status: Acute (2) Acute respiratory failure with hypoxia: Status: Acute (3) Mucus plugging of bronchi: Status: Acute (4) Bipolar 2 disorder: Status: Acute Plan 51-year-old female with developmental delay, chronically bed-bound presents to the hospital with hypoxia found to be hypoxic respiratory failure secondary to likely mucus plugging/Dysphagia, aspriation pneumonia, Sepsis/ entercoccus bacteremia, hospital course complicated by recurrent aspirations, mucus pluging requiring constant suction and seizures, hypernatremia and overall failure to thrive. Decsion made on 01/07 her guardian (sister Yuko and Nephew) and decision supported by DDS. Plan: Continue Comfort care with morphine for respiratory distress/comfort, Ativan for anxiety and seizure, Keppra for seizure, scopolamine to control secretions. Quality Stroke Does the patient have a stroke diagnosis?: No VTE Prior VTE?: No VTE Risk Level:: Medical - moderate - high VTE Device Contraindication: Treatment Not Indicated VTE Drug Contraindication: N/A - Med Ordered
[2022-01-09 21:53] VITALS: RESP 30
[2022-01-09 23:32] VITALS: RESP 32
[2022-01-10 02:23] VITALS: RESP 32
[2022-01-10] MEDS: Morphine Sulfate 2 MG/ML CARTRIDGE IVPUSH ×4 (02:23→11:21)
[2022-01-10 06:08] VITALS: RESP 30
[2022-01-10] MEDS: 0.9 % Sodium Chloride Flush 3 ML SYRINGE IVFLUSH ×2 (07:57→18:33)
[2022-01-10] MEDS: levETIRAcetam in NaCl (iso-os) 500 MG/100 ML PIGGYBACK 400 MG IV ×2 (07:57→18:31)
[2022-01-10] MEDS: LORazepam 2 MG/ML VIAL 1 MG IVPUSH (07:57)
--- NOTE | 2022-01-10 10:28 | HO.PM.IMPN ---
Subjective Subjective Date of Service: 02/03/22 Interval History: Fairly comfortable, no further report of seizure Review of Systems Unable to obtain secondary to nonverbal status Physical Exam Vital Signs: Vital Signs: Last Vital Signs Temp 99.2 F 01/08/22 05:31 Pulse 150 H 01/08/22 05:31 Resp 30 H 01/10/22 06:08 BP 161/78 H 01/08/22 05:31 Pulse Ox 93 01/08/22 06:00 Oxygen Flow Rate 15 12/29/21 15:24 BMI result Body Mass Index 26.2 Const: Other: At present, unresponsive, looks comfortable no seizure activity, breathing is comfortable. Objective Data Active Medications Acetaminophen (Acetaminophen Supp 650 Mg Supp.Rect) 650 mg MT Q6H PRN PRN Reason: Pain, Mild (Pain Scale 1-3) Last Admin: 01/06/22 09:42 Dose: 650 mg Documented by: SUSAN Levetiracetam (Keppra) 500 mg in 100 mls @ 400 mls/hr IV Q12H [facility] Last Infusion: 01/10/22 08:45 Dose: 0 mls/hr Documented by: KALEIGH Lorazepam (Lorazepam 2 Mg/Ml Vial) 1 mg IVPUSH Q2H PRN PRN Reason: anxiety or seizure Last Admin: 01/10/22 07:57 Dose: 1 mg Documented by: KALEIGH Lorazepam (Lorazepam 2 Mg/Ml Vial) 2 mg IVPUSH Q5M PRN PRN Reason: Seizures Morphine Sulfate (Morphine Sulfate 2 Mg/Ml Cartridge) 2 mg IVPUSH Q1H PRN; Protocol PRN Reason: resp distress/comfort Last Admin: 01/08/22 16:33 Dose: 2 mg Documented by: SUSAN Morphine Sulfate (Morphine Sulfate 2 Mg/Ml Cartridge) 2 mg IVPUSH Q4H [facility]; Protocol Last Admin: 01/10/22 09:09 Dose: 2 mg Documented by: KALEIGH Ondansetron HCl (Ondansetron Hcl 4 Mg/2 Ml Vial) 4 mg IVPUSH Q8H PRN PRN Reason: Nausea and Vomiting Pharmacy Consult (Consult Rx Perform Med Rec) 1 each MISCELLANE ONCE PRN PRN Reason: Consult order Pharmacy Consult (Consult Rx Vancomycin Dosing) 1 each MISCELLANE DAILY PRN PRN Reason: Consult order Sodium Chloride (0.9 % Sodium Chloride Flush 3 Ml Syringe) 3 ml IVFLUSH QSHIFT [facility] Last Admin: 01/10/22 07:57 Dose: 3 ml Documented by: KALEIGH Labs CBC & Chem 7: 01/07/22 06:30 01/07/22 06:30 Assessment and Plan (1) Nontraumatic hematoma of soft tissue: Status: Acute (2) Abrasion of elbow, right: Status: Acute (3) Chronic constipation: Status: Acute Plan 51-year-old female with developmental delay, chronically bed-bound presents to the hospital with hypoxia found to be hypoxic respiratory failure secondary to likely mucus plugging/Dysphagia, aspriation pneumonia, Sepsis/ entercoccus bacteremia, hospital course complicated by recurrent aspirations, mucus pluging requiring constant suction and seizures, hypernatremia and overall failure to thrive. Decsion made on 01/07 her guardian (sister Yuko and Nephew) and decision supported by DDS. Plan: Continue Comfort care with morphine for respiratory distress/comfort, Ativan for anxiety and seizure, Keppra for seizure, scopolamine to control secretions. Discussed potentially restarting tube fee with sister again yesterday and to keep on with comfort measures..Adjust mornine for comfort inpatient for comofort care on iv pain meds Quality Stroke Does the patient have a stroke diagnosis?: No VTE Prior VTE?: No VTE Risk Level:: Medical - moderate - high VTE Device Contraindication: Treatment Not Indicated VTE Drug Contraindication: N/A - Med Ordered
[2022-01-10 11:21] VITALS: RESP 27
[2022-01-10 12:29] VITALS: RESP 23
--- NOTE | 2022-01-10 12:38 | HO.WOUNDCONS ---
History of Present Illness Data of Consult Service Date: 01/10/22 Requesting physician: Wilian Eng Primary Care Provider: Carlo Das MD [facility] Reason for consult: skin changes of the heels and coccyx [id number]: 51 year old female with developmental delay, tardive dyskinesia, recent refractory seizures and chronic mucous plugging with acute respiratory failure and hypoxia. 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 We were asked to evaluate her for deep tissue injury in the setting of palliative care picture. Review of Systems Review of Systems: patient is nonverbal [facility], [facility] Medical History Bipolar 2 disorder Chronic constipation Developmental delay, severe Gastrostomy tube in place Hyperlipidemia Pulmonary emboli Tardive dyskinesia Social History Household Members: Other Household Members Other:: long term Housing: Assisted Living Facility Do you presently have visiting nurse or other home services: Yes (lives in long term) Unable to assess alcohol history related to: Unknown Alcohol intake: unknown Patient Tobacco Use Status: Tobacco use Unknown service: No Current occupational status: disabled Meds Allergies Allergy/AdvReac Type Severity Reaction Status Date / Time ceftriaxone [From ROCEPHIN] Allergy Unknown UNKNOWN Verified 12/03/21 08:55 mirtazapine [MIRTAZAPINE] Allergy Unknown HIVES Verified 12/03/21 08:55 Active Medications: Current Medications Acetaminophen (Acetaminophen Supp 650 Mg Supp.Rect) 650 mg [place] Q6H PRN PRN Reason: Pain, Mild (Pain Scale 1-3) Last Admin: 01/06/22 09:42 Dose: 650 mg Documented by: Levetiracetam (Keppra) 500 mg in 100 mls @ 400 mls/hr IV Q12H [facility] Last Infusion: 01/10/22 08:45 Dose: Infused Documented by: Lorazepam (Lorazepam 2 Mg/Ml Vial) 1 mg IVPUSH Q2H PRN PRN Reason: anxiety or seizure Last Admin: 01/10/22 07:57 Dose: 1 mg Documented by: Lorazepam (Lorazepam 2 Mg/Ml Vial) 2 mg IVPUSH Q5M PRN PRN Reason: Seizures Morphine Sulfate (Morphine Sulfate 2 Mg/Ml Cartridge) 2 mg IVPUSH Q1H PRN; Protocol PRN Reason: resp distress/comfort Last Admin: 01/10/22 11:21 Dose: 2 mg Documented by: Morphine Sulfate (Morphine Sulfate 2 Mg/Ml Cartridge) 4 mg IVPUSH Q4H [facility]; Protocol Last Admin: 01/10/22 11:10 Dose: Not Given Documented by: Ondansetron HCl (Ondansetron Hcl 4 Mg/2 Ml Vial) 4 mg IVPUSH Q8H PRN PRN Reason: Nausea and Vomiting Pharmacy Consult (Consult Rx Perform Med Rec) 1 each MISCELLANE ONCE PRN PRN Reason: Consult order Pharmacy Consult (Consult Rx Vancomycin Dosing) 1 each MISCELLANE DAILY PRN PRN Reason: Consult order Sodium Chloride (0.9 % Sodium Chloride Flush 3 Ml Syringe) [facility] Last Admin: 01/10/22 07:57 Dose: 3 ml Documented by: Home Medications Medication Instructions Recorded Confirmed Last Taken Type acetaminophen 325 mg tablet 975 mg FEEDING TUBE TID 11/27/21 12/29/21 12/29/21 History clonazepam 0.5 mg tablet 1 tab FEEDING TUBE BID@0800,1400 11/27/21 12/29/21 12/28/21 History clonazepam 2 mg tablet 1 tab FEEDING TUBE BEDTIME 11/27/21 12/29/21 12/28/21 History clotrimazole 1 % topical cream 1 appl TOPICAL MOFR 11/27/21 12/29/21 12/27/21 History cyanocobalamin (vitamin B-12) 1 tab FEEDING TUBE DAILY 11/27/21 12/29/21 12/29/21 History 1,000 mcg tablet docusate sodium 50 mg/5 mL oral 100 mg FEEDING TUBE BID 11/27/21 12/29/21 12/29/21 History liquid (Docu) fluoxetine 10 mg capsule 1 cap FEEDING TUBE DAILY 11/27/21 12/29/21 12/29/21 History fluoxetine 20 mg capsule 1 cap FEEDING TUBE DAILY 11/27/21 12/29/21 12/29/21 History folic acid 1 mg tablet 1 tab FEEDING TUBE DAILY 11/27/21 12/29/21 12/29/21 History ketoconazole 2 % shampoo 1 appl TOPICAL DAILY 11/27/21 12/29/21 12/29/21 History melatonin 1 mg tablet 1 tab FEEDING TUBE BEDTIME 11/27/21 12/29/21 12/28/21 History sennosides 8.8 mg/5 mL oral syrup 17.6 mg FEEDING TUBE DAILY 11/27/21 12/29/21 12/29/21 History (senna) simvastatin 20 mg tablet 1 tab FEEDING TUBE BEDTIME 11/27/21 12/29/21 12/28/21 History trazodone 50 mg tablet 1 tab FEEDING TUBE BEDTIME 11/27/21 12/29/21 12/28/21 History triamcinolone acetonide 0.1 % 1 applic TOPICAL DAILY 11/27/21 12/29/21 12/29/21 History topical cream valproic acid (as sodium salt) 250 1,500 mg PO DAILY 11/27/21 12/29/21 12/29/21 History mg/5 mL oral solution valproic acid (as sodium salt) 250 1,750 mg FEEDING TUBE BEDTIME 11/27/21 12/29/21 12/28/21 History mg/5 mL oral solution cranberry 400 mg capsule 400 mg FEEDING TUBE DAILY 12/29/21 12/29/21 12/29/21 History Physical Exam Vital Signs and Narrative: Vital Signs: Last Vital Signs Temp 99.2 F 01/08/22 05:31 Pulse 150 H 01/08/22 05:31 Resp 23 H 01/10/22 12:29 BP 161/78 H 01/08/22 05:31 Pulse Ox 93 01/08/22 06:00 Oxygen Flow Rate 15 12/29/21 15:24 BMI result Body Mass Index 26.2 Her upper extremities show spasticity. She tracks me very well with her eyes. Her facial muscles are fixed in the open mouth position. She is wearing a open vented mask at 4 L of oxygen. I do not have a oxygen saturation at this time. All of her chronic monitoring has been discontinued in the setting of CM0/DNR/ DNI. She does not nod or blink her eyes to communicate. In general, she is well cared for. Her hygiene is excellent. The medial aspect of her heels do not show any evidence of ulceration but show bogginess. She is wearing PUPP boots. No associated redness. We cautiously assist her onto her left side and remove the Allevyn for a look at her coccygeum. There is darkened tissue here, about [id number]. There is decreased blanching of the periwound. There is no ulcerative nature to this darkened tissue as it is fully covered with intact epithelial tissue. No drainage. No redness or edema. No streaking or warmth. No odor. The Alleyn is replaced and she is assisted back to supine position, no obvious stridor or increased labor of breathing. An Allevyn on her right elbow shows a superficial abrasion. Results Labs CBC and Chem 7: 01/07/22 06:30 01/07/22 06:30 Assessment and Plan (1) Nontraumatic hematoma of soft tissue: Status: Acute (2) Abrasion of elbow, right: Status: Acute Plan 51-year-old female comes in from [facility] with acute respiratory failure, hypoxia, mucus plugging in the setting of cognitive impairment, poor mobility and spasticity with developmental delay, nonveral and recent increase in seizure activity for whom the decision of CLIENT RELATIONS REPRESENTATIVE/DNR/DNI has been made by the family. The question is raised as to whether she has deep soft tissue injury over her coccyx. It is likely that she does, but caution should be used in defining this as a pressure injury alone as there are multiple confounding factors. She is at risk of DTI because of poor mobility and challenge to makes her needs known - unclear to me how she communicates pain. The skin change is over a bony prominence. However, she appears to be well cared for and her skin integrity is good. She is hypoxic, therfore her wounds are hypoxic. She is no longer getting any nutrition - clearly there is no goal to granulate new tissue. Also, science is evolving in wound care that supports dark skin changes in gravity dependent areas that could suggest impending lividity at or near times near . This may not be straight forward pressure injury. Agree with Allevyn for protection and palliative support. Usually, a CLIENT RELATIONS REPRESENTATIVE patient is not turned unless the patient indicates that they are uncomfortable. No further recommendations. Discussed briefly with her family that her skin integrity is good and she is getting good care. Her hygiene is excellent.
--- NOTE | 2022-01-10 13:30 | MHC.CLN ---
F/U PT IS WITHOUT DIET ORDER CURRENTLY PT IS [facility] [employer] PER MD IF TF TO BE RE-STARTED PER FAMILY WISHES; RECOMMEND JEVITY 1.0 AT MAX GOAL RATE 55ML/HR WITH 300ML FWF Q 6 HRS PROVIDES 1399KCALS (28KCALS/KG), 58G PROTEIN (1.15G/KG), 2302ML TOTAL WATER FROM FORMULA AND FLUSH (45.6ML/KG) WILL ADD FEED FROM FLOOR DIET R/T [facility] [employer] WILL FOLLOW WITH TEAM AND PROVIDE SUPPORT NEEDED
[2022-01-10] MEDS: Morphine Sulfate 2 MG/ML CARTRIDGE 4 MG IVPUSH ×2 (14:35→18:33)
--- NOTE | 2022-01-10 15:48 | MHC.CM.PN ---
Female 51 DX Hypoxic respiratory failure. [facility]. 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 Family @ bedside. Met with 2nd proxy this am. Education provided re DRYING ROOM OPERATOR. He understands that a discharge plan may be needed. T/W discussed need to transfer hospice patient from the Acute level of care. Yuko the 1st HCP drove up from [place]. She arrived this afternoon. Emotional support and encouragement were provided. DP PT passes @ [facility] vs transfer to SNF on hospice. CM will follow.
[2022-01-10 21:50] VITALS: RESP 16
[2022-01-10 23:42] VITALS: BP 172/89; PULSE 138; RESP 18; TEMP 36.8; O2SAT 96
[2022-01-11] VITALS (7 sets, daily range): BP systolic 123; BP diastolic 82; PULSE 120; RESP 15–36; TEMP 36.7; O2SAT 92
[2022-01-11] MEDS: 0.9 % Sodium Chloride Flush 3 ML SYRINGE IVFLUSH ×4 (00:35→19:09)
[2022-01-11] MEDS: Morphine Sulfate 2 MG/ML CARTRIDGE 4 MG IVPUSH ×5 (02:11→21:27)
[2022-01-11] MEDS: levETIRAcetam in NaCl (iso-os) 500 MG/100 ML PIGGYBACK 400 MG IV ×2 (07:19→19:08)
[2022-01-11] MEDS: LORazepam 2 MG/ML VIAL 1 MG IVPUSH ×2 (08:08→10:28)
--- NOTE | 2022-01-11 12:19 | MHC.CM.PN ---
[facility] PLANNED TO COMMUNICATE WITH [facility] TO DETERMINE IF THEY ARE ABLE TO SUPPOR PATIENT IN THE HOME UNDER HOSPICE CARE. NO RESPONSE IN ALLSCRIPTS CALL TO [facility] NURSE AT [phone] NEED FOR A PLAN WAS DISCUSSED. HOME VERSUS SNF ON HOSPICE AND CHOICES WILL BE NEEDED [facility] CONTACT TO CALL THIS PARACHUTE CUSHION INSTALLER BACK.
--- NOTE | 2022-01-11 13:17 | MHC.CM.PN ---
CASE MANAGEMENT ATTMEPTING TO SECURE A DC PLAN (HOME VERSUS SNF) WITH HOSPICE SERVICES CALL TO SHELTER [phone] STAFF MEMBER REPRTS THAT SHE IS NOT AWARE OF ANY DECISION MADE ABOUT PATIENT RETURNING HOME THIS SHOEMAKING CUTTER ASKED FOR DAYANNA TOLBERT'S BEST CONTACT NUMBER SHE ASKS THAT THIS SHOEMAKING CUTTER CALL INFORMATION SYSTEMS PROFESSOR, BOWEN @ [phone] INSTEAD CALL MADE AND BOWEN SAYS THAT HE DOES NOT HAVE ANY IDEA WHAT THE PLAN IS AND THAT SHOULD BE ADDRESSED WITH DAYANNA TOLBERT THIS SHOEMAKING CUTTER ASKED FOR DIDI'S NUMBER BOWEN ASKED THIS SHOEMAKING CUTTER TO CALL THE SHELTER BACK, HE DOES NOT HAVE DIDI'S NUMBER UPON REVIEW OF NOTES, THIS SHOEMAKING CUTTER FOUND NUMBER CALL TO DIDI AT [phone] AND NO ANSWER DETAILED VOICEMAIL LEFT WITH TWO CALL BACK NUMBERS FOR THIS SHOEMAKING CUTTER. CALL TO [facility] AT [phone] RN HAS LEFT MESSAGES FOR RN BUT NO SUCCESSFUL CONTACT HAS BEEN MADE [facility] IS CONTRACTED WITH [facility] REFERRAL PLACED. KYRIE PIKE (IN ROOM) AWARE AND SHE IS WAITING TO SPEAK WITH HOSPITALIST. HOSPITALIST MADE AWARE.
--- NOTE | 2022-01-11 14:54 | HO.PM.IMPN ---
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 Breathing comfortably Review of Systems Unable to obtain Physical Exam Vital Signs: Vital Signs: Last Vital Signs Temp 98.1 F 01/11/22 06:52 Pulse 120 H 01/11/22 06:52 Resp 20 01/11/22 11:46 BP 123/82 01/11/22 06:52 Pulse Ox 92 01/11/22 06:52 Oxygen Flow Rate 15 12/29/21 15:24 BMI result Body Mass Index 26.2 Const: Other: Somnolent but appears comfortable Resp: Other: Diminished with scattered rhonchi throughout Cardio: Other: No S4; positive S1-S2; no S3 murmurs rubs or gallops GI: Other: Soft nontender nondistended normoactive bowel sounds Extrem: Other: No edema bilaterally Objective Data Active Medications Acetaminophen (Acetaminophen Supp 650 Mg Supp.Rect) 650 mg SD Q6H PRN PRN Reason: Pain, Mild (Pain Scale 1-3) Last Admin: 01/06/22 09:42 Dose: 650 mg Documented by: SUSAN Levetiracetam (Keppra) 500 mg in 100 mls @ 400 mls/hr IV Q12H [facility] Last Infusion: 01/11/22 07:39 Dose: 0 mls/hr Documented by: KELSEY Lorazepam (Lorazepam 2 Mg/Ml Vial) 1 mg IVPUSH Q2H PRN PRN Reason: anxiety or seizure Last Admin: 01/11/22 10:28 Dose: 1 mg Documented by: KELSEY Lorazepam (Lorazepam 2 Mg/Ml Vial) 2 mg IVPUSH Q5M PRN PRN Reason: Seizures Morphine Sulfate (Morphine Sulfate 2 Mg/Ml Cartridge) 2 mg IVPUSH Q1H PRN; Protocol PRN Reason: resp distress/comfort Last Admin: 01/10/22 11:21 Dose: 2 mg Documented by: KALEIGH Morphine Sulfate (Morphine Sulfate 2 Mg/Ml Cartridge) 4 mg IVPUSH Q4H [facility]; Protocol Last Admin: 01/11/22 09:04 Dose: 4 mg Documented by: KELSEY Ondansetron HCl (Ondansetron Hcl 4 Mg/2 Ml Vial) 4 mg IVPUSH Q8H PRN PRN Reason: Nausea and Vomiting Pharmacy Consult (Consult Rx Perform Med Rec) 1 each MISCELLANE ONCE PRN PRN Reason: Consult order Sodium Chloride (0.9 % Sodium Chloride Flush 3 Ml Syringe) 3 ml IVFLUSH QSHIFT [facility] Last Admin: 01/11/22 07:20 Dose: 3 ml Documented by: KELSEY Labs CBC & Chem 7: 01/07/22 06:30 01/07/22 06:30 Assessment and Plan (1) Acute respiratory failure with hypoxia: Status: Acute (2) Developmental delay, severe: Status: Acute Plan 51-year-old female with developmental delay, chronically bed-bound presents to the hospital with hypoxia found to be hypoxic respiratory failure secondary to likely chronic aspiration 1.Acute hypoxic respiratory failure/Severe developmental delay/dysphagia -as per notes and extensive discussion with family; 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 -IV morphine/Ativan as clinically indicated Requires ongoing hospitalization for IV morphine and Ativan Quality Stroke Does the patient have a stroke diagnosis?: No VTE Prior VTE?: No VTE Risk Level:: Medical - moderate - high VTE Device Contraindication: Treatment Not Indicated VTE Drug Contraindication: N/A - Med Ordered
[2022-01-12] MEDS: Morphine Sulfate 2 MG/ML CARTRIDGE 4 MG IVPUSH ×5 (06:15→21:27)
[2022-01-12] MEDS: 0.9 % Sodium Chloride Flush 3 ML SYRINGE IVFLUSH ×3 (07:34→19:40)
[2022-01-12] MEDS: levETIRAcetam in NaCl (iso-os) 500 MG/100 ML PIGGYBACK 400 MG IV ×2 (07:34→19:40)
--- NOTE | 2022-01-12 12:27 | HO.PM.IMPN ---
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 Breathing comfortably... More alert today eyes tracking Review of Systems Unable to obtain Physical Exam Vital Signs: Vital Signs: Last Vital Signs Temp 98.1 F 01/11/22 06:52 Pulse 120 H 01/11/22 06:52 Resp 22 H 01/11/22 23:39 BP 123/82 01/11/22 06:52 Pulse Ox 92 01/11/22 06:52 Oxygen Flow Rate 15 12/29/21 15:24 BMI result Body Mass Index 26.2 Const: Other: Somnolent but appears comfortable Resp: Other: Diminished with scattered rhonchi throughout Cardio: Other: No S4; positive S1-S2; no S3 murmurs rubs or gallops GI: Other: Soft nontender nondistended normoactive bowel sounds Extrem: Other: No edema bilaterally Objective Data Active Medications Acetaminophen (Acetaminophen Supp 650 Mg Supp.Rect) 650 mg [place] Q6H PRN PRN Reason: Pain, Mild (Pain Scale 1-3) Last Admin: 01/06/22 09:42 Dose: 650 mg Documented by: SUSAN Levetiracetam (Keppra) 500 mg in 100 mls @ 400 mls/hr IV Q12H [facility] Last Infusion: 01/12/22 07:59 Dose: 0 mls/hr Documented by: KELSEY Lorazepam (Lorazepam 2 Mg/Ml Vial) 2 mg IVPUSH Q5M PRN PRN Reason: Seizures Morphine Sulfate (Morphine Sulfate 2 Mg/Ml Cartridge) 2 mg IVPUSH Q1H PRN; Protocol PRN Reason: resp distress/comfort Last Admin: 01/10/22 11:21 Dose: 2 mg Documented by: KALEIGH Morphine Sulfate (Morphine Sulfate 2 Mg/Ml Cartridge) 4 mg IVPUSH Q4H [facility]; Protocol Last Admin: 01/12/22 09:36 Dose: 4 mg Documented by: KELSEY Ondansetron HCl (Ondansetron Hcl 4 Mg/2 Ml Vial) 4 mg IVPUSH Q8H PRN PRN Reason: Nausea and Vomiting Pharmacy Consult (Consult Rx Perform Med Rec) 1 each MISCELLANE ONCE PRN PRN Reason: Consult order Sodium Chloride (0.9 % Sodium Chloride Flush 3 Ml Syringe) 3 ml IVFLUSH QSHIFT [facility] Last Admin: 01/12/22 07:34 Dose: 3 ml Documented by: KELSEY Labs CBC & Chem 7: 01/07/22 06:30 01/07/22 06:30 Assessment and Plan (1) Acute respiratory failure with hypoxia: Status: Acute (2) Developmental delay, severe: Status: Acute Plan 51-year-old female with developmental delay, chronically bed-bound presents to the hospital with hypoxia found to be hypoxic respiratory failure secondary to likely chronic aspiration 1.Acute hypoxic respiratory failure/Severe developmental delay/dysphagia -as per notes and extensive discussion with family; 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 -IV morphine/Ativan as clinically indicated Requires ongoing hospitalization for IV morphine and Ativan Quality Stroke Does the patient have a stroke diagnosis?: No VTE Prior VTE?: No VTE Risk Level:: Medical - moderate - high VTE Device Contraindication: Treatment Not Indicated VTE Drug Contraindication: N/A - Med Ordered
--- NOTE | 2022-01-12 15:20 | MHC.CLN ---
F/U FEED FROM FLOOR DIET DUE TO SERVICES PROGRAM MANAGER. NOT UTILIZING FEEDING TUBE. WILL FOLLOW WITH TEAM AND PROVIDE SUPPORT NEEDED.
[2022-01-12 20:05] VITALS: PULSE 132; RESP 22
[2022-01-12 23:20] VITALS: RESP 22
[2022-01-12 23:28] VITALS: RESP 22
[2022-01-13 02:07] VITALS: RESP 22
[2022-01-13] MEDS: Morphine Sulfate 2 MG/ML CARTRIDGE 4 MG IVPUSH ×3 (02:07→09:16)
[2022-01-13 03:50] VITALS: RESP 27
[2022-01-13 05:30] VITALS: RESP 22
[2022-01-13] MEDS: levETIRAcetam in NaCl (iso-os) 500 MG/100 ML PIGGYBACK 400 MG IV (07:22)
[2022-01-13] MEDS: 0.9 % Sodium Chloride Flush 3 ML SYRINGE IVFLUSH (07:24)
--- NOTE | 2022-01-13 09:30 | MHC.CM.PN ---
[facility] AND [facility] ARE UNABLE TO OFFER A BED SNF SEARCH EXPANDED TO INCLUDE [facility], [facility], AND [facility] CASE MANAGEMENT CONTINUING TO FOLLOW.
--- NOTE | 2022-01-13 12:28 | PM.DDS ---
Discharge Sum: Prov Provider Primary care physician: Carlo Das MD Consults: 12/31/21 09:43 Consult to Pulmonology Routine Consulting Provider: Terell Millard Reason for consultation: Hypoxia...query mucus plugging 01/04/22 09:13 Consult to Infectious Diseases Routine Consulting Provider: Ashley Thompson Reason for consultation: Pos BC Has provider been notified: Yes 01/10/22 08:00 Consult to Wound Care Routine Consulting Provider: Wilian Eng Reason for consultation: pt has ?DTI to coccyx Has provider been notified: Yes Discharge Sum: Diag Contributing Factors (1) Acute respiratory failure with hypoxia: (2) Developmental delay, severe: Discharge Sum: Summary Date and Time Date of admission: 12/29/21 20:18 Date of : 01/13/22 Time of : 11:30 Summary Details: 51-year-old female with multiple admissions for recurrent aspiration did not respond to therapies this admission. 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 She was maintained on p.r.n. morphine and Ativan and passed quietly with family at bedside Additional Data Attending physician: David Almeida DO
--- NOTE | 2022-02-11 07:23 | P.CDIR_ITS ---
Documented by User: Samina Bynum RN 02/18/22 07:30 Retrospective Query PHYSICIAN'S DOCUMENTATION REQUEST Date of Query: 02/11/22722 Patient Name: Barbara Hood Admit Date: 12/29/21 Dear Doctor, A review of the medical record indicates additional documentation may be needed. Please review below and update the documentation accordingly. Risk Factors/Clinical Indicators/Treatments On 12/29/21: WBC 8.1 LA 1.3 T 98.3, 93, 18, 134/78 ED note 12/29/21: WBC, LA, CXR WNL Diagnosis; Hypoxic, Mucus plugging bronchi treated with 1 dose Zosyn, BiPAP Per H&P 12/29/21: Acute Respiratory Failure with hypoxia, mucus plugging bronchi MD event note 12/30/21: T 101 on 12/29/21 developed positive blood culture MD progress note 12/30/21: continue empiric Zosyn repeat blood culture, LA, CXR Recognized standard criteria for this condition and other infectious definitions includes: Sepsis Systemic manifestations of infection, with 2 or more SIRS criteria which include: * Fever > 100.4?F or hypothermia < 96.8?F * Leukocytosis ? WBC > 12,000 or leukopenia, WBC < 4,000, or > 10% bands * Tachycardia- > 90 beats/minute * Tachypnea- RR > 20 breaths/minute or PaCO2 < 32mmHg Source: Merck Manual 2013 Documentation should include the known or suspected organism, and the underlying infection, such as UTI or pneumonia Based on the above information and the recognized standard for sepsis, could you please clarify in the Progress Notes if this diagnoses is still accurate and reflective of the patient's condition to ensure quality of the medical record. * Sepsis was present on admission and is a clinical diagnosis (please include this additional support in the medical record) * After study, Sepsis has been ruled out * Other (please specify) * Unable to determine Use of terms such as suspected, likely, concern for, or probable (associated with a specific diagnosis that is being evaluated, monitored, or treated as if it exists) are acceptable and can be coded in the inpatient setting, when docu mented at the time of discharge. Thank you, Samina Bynum RN Extension: [phone] Please use your independent medical judgment in providing your response. THIS QUERY IS PART OF THE PERMANENT MEDICAL RECORD Documented by User: David Almeida DO 03/10/22 08:10 Retrospective Query Provider Response: Other (After study sepsis has been ruled out)
== END 2022-01-13 13:34 | disposition expired | DRG 177 ==
LOC: HO.ED 19:10 → HO.S3 12-30 07:24 → HO.EDOVER 12-30 07:40 → HO.S3 12-30 07:40 → HO.IMC 01-04 12:27 → HO.S3 01-10 17:07
PROVIDERS: Hospitalist; Internal Medicine; Admitting Provider Internal Medicine; Emergency Provider Emergency Medicine; PCP Internal Medicine; Visit Provider Hospitalist
DX: J69.0 Pneumonitis due to inhalation of food and vomit (principal); J96.01 Acute respiratory failure with hypoxia; F31.81 Bipolar II disorder; T17.590A Other foreign object in bronchus causing asphyxiation, initial encounter; E87.0 Hyperosmolality and hypernatremia; R78.81 Bacteremia; G40.89 Other seizures; Z66 Do not resuscitate; Z51.5 Encounter for palliative care; R62.50 Unspecified lack of expected normal physiological development in childhood; R13.10 Dysphagia, unspecified; E78.5 Hyperlipidemia, unspecified; G24.01 Drug induced subacute dyskinesia; K59.09 Other constipation; L89.156 Pressure-induced deep tissue damage of sacral region; X58.XXXA Exposure to other specified factors, initial encounter; R62.7 Adult failure to thrive; B95.2 Enterococcus as the cause of diseases classified elsewhere; Z68.26 Body mass index [BMI] 26.0-26.9, adult; Z74.01 Bed confinement status; Z20.822 Contact with and (suspected) exposure to COVID-19; Z88.1 Allergy status to other antibiotic agents; Z88.8 Allergy status to other drugs, medicaments and biological substances; Z93.1 Gastrostomy status; Z79.899 Other long term (current) drug therapy
CPT/HCPCS: 36415; 71045; 80048; 80053; 80076; 80202; 82803; 82947; 83605; 83735; 83880; 84484; 85025; 85610; 87040; 87077; 87147; 87186; 87205; 87502; 87635; 93005; 94660; 94799; 96361; 96365; 99218; 99285; 99498; J1953; J2060; J2270; J2543; J3370